=== PATIENT | female | born 1945 | race Caucasian/White ===

== ENCOUNTER → 2016-09-10 | Outpatient (CLI) | payer MEDICARE, OTHER ==
--- NOTE | 2016-09-10 21:57 | MR ---
EXAMINATION TYPE: MR lumbar spine wo con DATE OF EXAM: 09/10/2016 7:36 PM COMPARISON: MRI lumbar spine July 11, 2015. HISTORY: low back pain for 10 years per patient radiating to right leg. Lumbosacral spinal stenosis p er order. TECHNIQUE: Multiplanar, multisequence imaging of the lumbar spine is performed without IV contrast. FINDINGS: Sagittal images of the lumbar spine show vertebral body heights to remain satisfactory. Exa ggerated lumbar lordosis is again seen. There is persistent grade 1 retrolisthesis of L1 on L2 and gr anne marie 1 anterolisthesis of L4 on L5 and L5 on S1. Multilevel disc desiccation is seen. There is multile prosper fairly advanced disc space narrowing there are thoracolumbar junction with heterogeneous endplate changes, prominent increased T1 and T2 signal consistent with Modic type II degenerative change is n oted centered at T12-L1 endplate. No large posterior disc herniations are seen on sagittal images. Th e conus medullaris remains normal in position and signal ending at mid L1 vertebral body level. Moder ate multilevel spurring near thoracolumbar junction is again seen. Axial images at T12-L1 level shows mild facet arthropathy mildly effacing posterior lateral thecal sa c and mild broad disc bulge mildly effacing anterior thecal sac. Bilateral neural foramina are patent . No significant change from prior study is seen Axial images at L1-L2 level show spondylolisthesis and moderate broad disc bulge mildly effacing ante rior thecal sac. Mild facet degenerative changes are present bilaterally. There is severe bilateral n eural foraminal narrowing redemonstrated probably related to spondylolisthesis. No significant change from prior study is identified. Axial images at L2-L3 level show moderate right greater than left facet degenerative changes and liga mentum flavum hypertrophy with some effacement the posterior lateral thecal sac bilaterally. There is mild to moderate broad disc bulge mildly effacing anterior thecal sac. There is severe right and mod erate left-sided neural foraminal narrowing redemonstrated. No significant change from prior study is identified. Axial images at the L3-L4 level show moderate facet degenerative changes and ligamentum flavum hypert rophy effacing the posterior lateral thecal sac on axial image 13. There is mild to moderate broad di sc bulge mildly effacing anterior thecal sac. There is mild bilateral neural foraminal narrowing at t his level identified. No significant change from prior study is noted. Axial images at L4-L5 level show moderate to advanced facet degenerative changes bilaterally. Spondyl olisthesis is present. There is additional moderate to severe broad based posterior disc protrusion e ffacing anterior thecal sac on axial image 7 redemonstrated. There is moderate right and mild left-si ded neural foraminal narrowing seen. Possible small synovial cyst on prior study axial image 8 is not clearly seen on today's study near exiting nerve root. Axial images at the L5-S1 level show moderate to severe facet degenerative changes bilaterally. Spond ylolisthesis is present. There is broad-based central disc protrusion mildly effacing the anterior th ecal sac. There is mild bilateral neural foraminal narrowing at this level identified. IMPRESSION: Exaggerated lumbar lordosis with multilevel degenerative changes seen as detailed above, no significant change from prior MRI is identified. Most pronounced spinal canal effacement or stenos is is redemonstrated at L4-L5 level. Most pronounced neural foraminal narrowing is seen in the upper lumbar levels.
== END | disposition home or self-care (01) ==
LOC: RADMRIMAIN 18:31
DX: M99.73 Connective tissue and disc stenosis of intervertebral foramina of lumbar region (principal); M47.816 Spondylosis without myelopathy or radiculopathy, lumbar region; M47.817 Spondylosis without myelopathy or radiculopathy, lumbosacral region; M40.56 Lordosis, unspecified, lumbar region
CPT/HCPCS: 72148

== ENCOUNTER → 2016-10-06 | Outpatient (CLI) | payer MEDICARE, OTHER ==
--- NOTE | 2016-10-08 08:09 | MM ---
Reason for exam: screening (asymptomatic). Last mammogram was performed 1 year ago. History: Patient is postmenopausal. Family history of breast cancer in mother at age 70 and breast cancer in cousin at age 50. Physical Findings: A clinical breast exam by your physician is recommended on an annual basis and results should be correlated with mammographic findings. MG 3D Screening Mammo W/Cad Bilateral CC and MLO view(s) were taken. Prior study comparison: October 05, 2015, bilateral MG screening mammo w CAD. April 20, 2014, bilateral MG screening mammo w CAD. There are scattered fibroglandular densities. No significant changes when compared with prior studies. ASSESSMENT: Benign, BI-RAD 2 RECOMMENDATION: Routine screening mammogram of both breasts in 1 year.
== END ==
LOC: RADMAMWWP 14:07
PROVIDERS: ATTEND Family Medicine
DX: Z12.31 Encounter for screening mammogram for malignant neoplasm of breast (principal)
CPT/HCPCS: 77063; G0202

== ENCOUNTER → 2016-11-19 | Outpatient (CLI) | payer MEDICARE, OTHER ==
--- NOTE | 2016-11-19 08:58 | CT ---
EXAMINATION TYPE: CT brain wo con DATE OF EXAM: 11/19/2016 8:31 AM COMPARISON: NONE HISTORY: PACE, sense of falling to the Lt CT DLP: 999.8 mGycm Automated exposure control for dose reduction was used. FINDINGS: There is no acute intracranial hemorrhage, mass effect, or midline shift identified. The ventricles and sulci are within normal limits in size. Hyperostosis frontalis is seen. The globes are intact and the visualized sinuses are clear. Some patchy opacity inferior bilateral mastoid air cells is presen t on axial image 6. IMPRESSION: No acute intracranial hemorrhage, mass effect, or midline shift is seen. Perhaps mild bilateral masto iditis, clinical correlation advised.
--- NOTE | 2016-11-19 09:02 | FL ---
EXAMINATION TYPE: FL barium swallow DATE OF EXAM: 11/19/2016 8:51 AM CLINICAL HISTORY: Known hiatal hernia with dysphagia per order. Reflux-like symptoms for 20 years. TECHNIQUE: A double contrast esophagram is performed utilizing air and barium. A total of 37 second s of fluoroscopic time was utilized during procedure. COMPARISON: CT chest November 10, 2010. FINDINGS: The esophagus shows dysmotility with abnormal secondary and tertiary contractions. There is a moderate size fixed hiatal hernia redemonstrated. No obstructing mass or neoplasm is present. No s ignificant stricturing is seen. No significant gastroesophageal reflux was seen during real time perf ormance of this study. IMPRESSION: Moderate esophageal dysmotility with moderate size fixed hiatal hernia.
== END | disposition home or self-care (01) ==
LOC: RADCTMAIN 08:11
PROVIDERS: ATTEND Family Medicine
DX: K22.4 Dyskinesia of esophagus (principal); Z00.00 Encounter for general adult medical examination without abnormal findings; K44.9 Diaphragmatic hernia without obstruction or gangrene; R51 Headache; R13.12 Dysphagia, oropharyngeal phase
CPT/HCPCS: 70450; 74220

== ENCOUNTER → 2017-02-06 | Outpatient (CLI) | payer MEDICARE, OTHER ==
--- NOTE | 2017-02-06 19:55 | XR ---
EXAMINATION TYPE: XR lumbar spine 2 or 3V DATE OF EXAM: 02/06/2017 COMPARISON: NONE HISTORY: Back pain TECHNIQUE: 3 views FINDINGS: There are rods and screws fusing posteriorly the lumbar spine from L3 to S1 bilaterally. Th ere is multilevel laminectomy. There is 1 cm posterior subluxation of L1 in relation to L2. There is moderate narrowing of L1-2 disc space. I see no compression fracture. Sacroiliac joints are intact. IMPRESSION: Multilevel spondylosis. Fusion surgery. Degenerative retrolisthesis at L1-2. No acute bon y abnormality.
== END | disposition home or self-care (01) ==
LOC: RADXRMAIN 19:27
DX: M43.16 Spondylolisthesis, lumbar region (principal); M47.816 Spondylosis without myelopathy or radiculopathy, lumbar region; Z98.1 Arthrodesis status
CPT/HCPCS: 72100

== ENCOUNTER 2017-04-03 11:05 | Day surgery (SDC) | payer MEDICARE, OTHER ==
[2017-04-02 10:04] VITALS: BMI 37.6
[~2017-04-03 11:05] MED LIST: LACTATED RINGERS 1,000 ML IV SCH
[2017-04-03 11:17] VITALS: RESP 16; TEMP 99.9
[2017-04-03] MEDS ORDERED: LIDOCAINE 1% 20 ML VIAL (10MG/ML) FOR IV START INTRADERMA ONE (11:32)
[2017-04-03] MEDS ORDERED: PROPOFOL 10 MG/ML 20 ML VIAL IV ONE (12:25)
--- NOTE | 2017-04-03 12:37 | P.PCN ---
Date of Procedure: 04/03/17 Preoperative Diagnosis: Postoperative Diagnosis: Procedure(s) Performed: BRIEF HISTORY: Patient is a 71-year-old, pleasant, white female, scheduled for an upper endoscopy as a part of evaluation of long-standing history of GERD for which she is on Prilosec 20 mg daily for the last 5 years duration. Recently has been having intermittent dysphagia to solids, occasional chest pain and excessive burping. PROCEDURE PERFORMED: Esophagogastroduodenoscopy with biopsy PREOPERATIVE DIAGNOSIS: GERD. IV sedation per anesthesia. PROCEDURE: After informed consent was obtained, the patient was brought into the endoscopy unit. IV sedation was administered by Anesthesia under continuous monitoring. Initially the Olympus GIF-140 video endoscope was inserted into the mouth. Esophagus intubated without any difficulty. It was gradually advanced into the stomach and duodenum and carefully examined. The bulb and the second part of the duodenum appeared normal. The scope at this time was withdrawn to the stomach, adequately insufflated with air, and upon careful examination, mucosa of the antrum, body, had multiple gastric polyps measuring between 5 mm to 1 cm in size some of which were biopsied. The cardia and the fundus appeared normal. The scope was then withdrawn into the esophagus. Moderate size hiatal hernia noted. The diaphragmatic impression was located at 35 cm from the incisors. The GE junction was located at 30 cm from the incisors. The esophagus appeared normal. There were no erosions or ulcerations seen and the patient tolerated the procedure well. IMPRESSION: 1. Moderate size hiatal hernia. 2. Multiple gastric polyps 3. No evidence of esophagitis or Wheeler's esophagus. RECOMMENDATIONS: The findings of this examination were discussed with the patient as well as his family. She was advised to follow with the biopsy results. She will continue with Prilosec 20 mg daily and follow antireflux measures. Implants: Indications for Procedure: Operative Findings: Description of Procedure:
[2017-04-03 13:04] VITALS: BP 121/77; PULSE 84
== END 2017-04-03 13:20 | disposition home or self-care (01) ==
LOC: ORWHC2ENDO 11:05
PROVIDERS: ATTEND Internal Medicine Gastroenterology
DX: K31.7 Polyp of stomach and duodenum (principal); K21.9 Gastro-esophageal reflux disease without esophagitis; K44.9 Diaphragmatic hernia without obstruction or gangrene; M19.90 Unspecified osteoarthritis, unspecified site; E07.9 Disorder of thyroid, unspecified; Z79.899 Other long term (current) drug therapy; Z88.2 Allergy status to sulfonamides
CPT/HCPCS: 88305; 88342; 43239; J2704

== ENCOUNTER → 2017-05-12 | Outpatient (CLI) | payer MEDICARE, OTHER ==
--- NOTE | 2017-05-12 14:38 | XR ---
Lumbar spine HISTORY: Spondylolisthesis, pain 3 views of the lumbar spine correlated to prior lumbar spine 02/06/2017 Posterior lumbar fusion and laminectomy changes are stable. Alignment is unchanged. Scoliotic curvatu re again noted. Bone mineralization is reduced. Surgical clips present in the right upper quadrant. Anterolisthesis grade 1 L5-S1 and L4-5 again noted. Retrolisthesis grade 1 L2-3, L1-2. Loss of disc h eight greatest at L1-2, T12-L1 with associated vacuum phenomenon. Endplate sclerosis again noted at L 1-2. Accentuation of the lumbar lordosis is noted. Sclerosis in the posterior elements compatible wit h facet arthropathy. IMPRESSION: Stable postoperative findings. Spondylolisthesis, degenerative disc disease, facet arthro caro and osteopenia. Scoliosis.
== END ==
LOC: RADXRMAIN 14:04
DX: M43.16 Spondylolisthesis, lumbar region (principal); M51.36 Other intervertebral disc degeneration, lumbar region; M46.86 Other specified inflammatory spondylopathies, lumbar region; M41.86 Other forms of scoliosis, lumbar region; Z98.890 Other specified postprocedural states
CPT/HCPCS: 72100

== ENCOUNTER 2017-07-20 08:40 | Day surgery (SDC) | payer MEDICARE, OTHER ==
[2017-07-17 08:48] VITALS: BMI 35.2
[2017-07-20 09:38] VITALS: TEMP 97.9
[2017-07-20] MEDS ORDERED: IV FLUID CONTINUATION 1,000 ML IV ONE (10:38)
--- NOTE | 2017-07-20 10:48 | P.PCN ---
Date of Procedure: 07/20/17 Preoperative Diagnosis: Right lumbar radiculopathy Failed back surgery syndrome Postoperative Diagnosis: Same as above Procedure(s) Performed: Right L2-L3 transforaminal epidural steroid injection under fluoroscopic guidance Anesthesia: MAC (moderate conscious sedation) Surgeon: Manju Sanchez Pathology: none sent Condition: stable Disposition: PACU Description of Procedure: PROCEDURE INDICATION: The patient with low back pain and radiculopathy symptoms unresponsive to conservative treatment. PROCEDURE DESCRIPTION / TECHNIQUE: The patient was seen and identified in the preoperative area. Risks, benefits , complications, and alternatives were discussed with the patient. The patient agreed to proceed with the procedure and signed the consent. IV was started, and vital signs were stable. Patient was taken to the OR and time out was completed. The patient was placed in the prone position on procedure table and a pillow was placed under the abdomen to reduce lumbar lordosis. The lumbosacral area was prepped and draped in the usual sterile fashion. Critical pause was taken. Vital signs were closely monitored during the procedure. Conscious sedation was used during the procedure to decrease patients anxiety. He shouldn't has lumbar fusion with hardware extending fromL3 to S1, the target today was at the L2-L3 level right above the superior extension of the hardware. The vertebral body of the lumbar vertebra L2 was squared off by tilting the C-arm cephalad then the C-arm was tilted to the oblique position and the target point was at the 6 o'clock position of the pedicle of L2 then skin and deeper tissues just below were localized with 1% lidocaine. Subsequently, a 22-gauge 3.5-inch spinal needle was advanced under a tunneled view fluoroscopic guidance just underneath the chin of the Hung dog at the right L2. Under lateral fluoroscopy, the needle was then advanced to the middle of the upper one third of the foramen between( L2 and L3). After negative aspiration of CSF and blood and with no paresthesias, 1 mL of omnipaque contrast dye was injected excellent epidurogram and outlining of the L2 nerve root was identified. Subsequently, 3 mL of block solution containing 10 mg of Decadron and 2 mL of bupivacaine 0.25% was injected. Needle was removed and the same . At the end of the procedure, skin was cleansed, and bandages were applied. COMPLICATIONS: None
[2017-07-20 10:49] VITALS: PULSE 70; RESP 18
--- NOTE | 2017-07-20 10:50 | FL ---
EXAMINATION TYPE: FL guided pain mgmt statistic DATE OF EXAM: 07/20/2017 HISTORY: Flouroscopy time 26 seconds of fluoroscopy provided. IMPRESSION: 1. Fluoroscopy time.
[2017-07-20 11:05] VITALS: BP 118/72
== END 2017-07-20 11:23 | disposition home or self-care (01) ==
LOC: ORPAIN 08:40
PROVIDERS: ATTEND Anesthesiology
DX: M54.16 Radiculopathy, lumbar region (principal); M54.9 Dorsalgia, unspecified; M79.604 Pain in right leg; Z88.2 Allergy status to sulfonamides; E03.9 Hypothyroidism, unspecified
CPT/HCPCS: 64483; J2250; J1100; Q9965; J3010; 99152

== ENCOUNTER → 2017-09-28 | Outpatient (CLI) | payer MEDICARE, OTHER ==
--- NOTE | 2017-09-29 08:47 | XR ---
EXAM TYPE: LUMBAR SPINE X RAY SERIES COMPARISON: NONE HISTORY: Presurgical TECHNIQUE: 3 views are submitted. FINDINGS: Postsurgical change involving the lumbar spine are stable. There is anterolisthesis of L4 on L5 and L 5-S1. Severe degenerative disc disease L-1-L2 with significant retrolisthesis of L1 appears stable. S evere degenerative disc disease involving the lower thoracic spine. IMPRESSION: 1. Postsurgical changes stable with persistent grade 1 anterolisthesis L4 on L5 and L5 and S1 2. Severe multilevel degenerative disc disease involving the lower thoracic spine and thoracolumbar j unction endplate sclerosis and deformity involving L1 is retrospectively stable.
== END | disposition home or self-care (01) ==
LOC: RADMRIMAIN 15:47
DX: M51.35 Other intervertebral disc degeneration, thoracolumbar region (principal); M43.17 Spondylolisthesis, lumbosacral region; G95.29 Other cord compression; G95.89 Other specified diseases of spinal cord; Z98.890 Other specified postprocedural states
CPT/HCPCS: 72100

== ENCOUNTER → 2017-10-21 | Outpatient (CLI) | payer MEDICARE, OTHER ==
--- NOTE | 2017-10-21 16:17 | XR ---
Lumbar spine HISTORY: Lumbar laminectomy 3 views of the lumbar spine, comparison prior exam 09/28/2017 Interval posterior fusion at T11-L1 with associated laminectomies. Alignment is stable. Loss of disc height at multiple intervertebral levels again seen with associated vacuum phenomenon. Bone mineraliz ation is markedly reduced. Vertebral body height is stable. Multilevel spondylosis. Sclerosis present in the posterior elements. Surgical clips incidentally noted right upper quadrant. Graft material is seen in the paraspinal loca tions. IMPRESSION: Neurosurgical follow-up
--- NOTE | 2017-10-21 16:30 | XR ---
Thoracic spine HISTORY: Laminectomy 3 views of the thoracic spine correlated to lumbar spine same date. There is a kyphosis centered at T10. Posterior fusion changes noted from T11 extending distally. Mult ilevel thoracic spondylosis is present. Bone mineralization. Loss of disc height present at the inter vertebral levels associated vacuum phenomenon. There is a mild spinal curvature. Surgical clips prese nt in the right upper quadrant. IMPRESSION: Postop changes. Degenerative disc disease. Spinal curvature and kyphosis.
== END ==
LOC: RAD 15:36
DX: Z09 Encounter for follow-up examination after completed treatment for conditions other than malignant neoplasm (principal); M51.34 Other intervertebral disc degeneration, thoracic region; M40.294 Other kyphosis, thoracic region; Z98.890 Other specified postprocedural states
CPT/HCPCS: 72072; 72100

== ENCOUNTER → 2017-11-06 | Outpatient (CLI) | payer MEDICARE, OTHER ==
--- NOTE | 2017-11-06 10:36 | CT ---
EXAMINATION TYPE: CT ankle RT wo con DATE OF EXAM: 11/06/2017 COMPARISON: NONE HISTORY: 72-year-old female Foot pain. Fracture of medial cuneiform. TECHNIQUE: Contiguous axial scanning of the right foot without IV contrast. Coronal and sagittal gui nstructions performed. 3-D reconstructions generated on a dedicated independent workstation. CT DLP: 214.90 mGycm Automated exposure control for dose reduction was used. FINDINGS: Osteoporotic changes are present particularly at the first MTP joint and to a greater degree at the f irst metatarsal sesamoid joints. There is prominent tenosynovitis of fluid seen along the flexor hallucis longus along its supramalleo lar portion. Focal thickening of the inframalleolar peroneal brevis is noted, and axial image 52. Some subchondral cystic changes are present in the TMT joint articulation suggesting underlying midfo ot osteoarthrosis. There is a healed fracture involving the medial cuneiform, refer to axial image 53. Mat Inspector im age. No acute fracture seen. Mild diffuse soft tissue swelling. Some focal edema is seen along the plantar midfoot subcutaneous tissues. IMPRESSION: 1. HEALED, NONDISPLACED FRACTURE ACROSS THE MEDIAL CUNEIFORM. 2. SCATTERED MIDFOOT OSTEOARTHROSIS WELL FIRST MTP AND FIRST METATARSAL-SESAMOID JOINT OSTEOART HROSIS. 3. CORRELATE FOR FLEXOR HALLUCIS LONGUS TENOSYNOVITIS. 4. INFRAMALLEOLAR PERONEUS BREVIS TENDINOPATHY CHARACTERIZED BY THICKENING.
== END | disposition home or self-care (01) ==
LOC: RADCTMAIN 09:17
PROVIDERS: ATTEND Orthopaedic Surgery
DX: M19.071 Primary osteoarthritis, right ankle and foot (principal); M65.9 Synovitis and tenosynovitis, unspecified; Z87.81 Personal history of (healed) traumatic fracture

== ENCOUNTER → 2018-01-01 | Outpatient (CLI) | payer MEDICARE, OTHER ==
--- NOTE | 2018-01-02 08:00 | XR ---
EXAMINATION TYPE: XR lumbar spine 2 or 3V DATE OF EXAM: 01/01/2018 CLINICAL HISTORY: pain TECHNIQUE: Three views of the lumbar spine are submitted. COMPARISON: 10/21/2017 FINDINGS: Postoperative changes of fusion are again noted extending throughout the lumbar spine. Pedicular scre ws are in place. Severe multilevel degenerative disc space narrowing. Grade 1 anterolisthesis L4 and L5 measuring 9 mm. Grade 2 anterolisthesis L5 on S1 measuring 1.2 cm essentially unchanged from prior study. Retrolisthesis of L2 on L3 measuring 5 mm. IMPRESSION: Stable postoperative changes in alignment. ICD 10 NO FRACTURE, INITIAL EVALUATION
--- NOTE | 2018-01-02 13:45 | CT ---
EXAMINATION TYPE: CT lumbar spine wo con DATE OF EXAM: 01/01/2018 COMPARISON: NONE HISTORY: Lower back pain after sx CT DLP: 1044.[address] of the lumbar spine was performed. Bone and soft tissue window settings are submitted as well as coronal and sagittal reconstructions. L1-L2: Decompressive laminectomy change. Pedicular screws in place. Severe degenerative disc space na rrowing. Ventral and dorsal spondylosis. Streak artifact limits evaluation. L2-L3: Decompressive laminectomy change. Pedicular screws in place. Severe degenerative disc space na rrowing. Ventral and dorsal spondylosis. Streak artifact limits evaluation. Retrolisthesis of L1 on L2 of 7 mm. L3-L4: Decompressive laminectomy change. Pedicular screws in place. Severe degenerative disc space na rrowing. Ventral and dorsal spondylosis. Streak artifact limits evaluation. Retrolisthesis of L2 on L3 of 5 mm. L4-L5: Decompressive laminectomy change. Pedicular screws in place. Severe degenerative disc space na rrowing. Ventral and dorsal spondylosis. Streak artifact limits evaluation. Anterolisthesis L4 and L5 of 6.2 mm. L5-S1: Decompressive laminectomy change. Pedicular screws in place. Severe degenerative disc space na rrowing. Ventral and dorsal spondylosis. Streak artifact limits evaluation. Grade 2 anterolisthesis of L5 on S1 of approximately 1 cm. No paraspinal masses are identified. No compression fracture seen. IMPRESSION: 1. Severe multilevel degenerative disc disease with there are varying degrees of rajendra and retrolist hesis. Extensive laminectomy change as noted.
== END ==
LOC: RADCTMAIN 18:11
DX: M51.36 Other intervertebral disc degeneration, lumbar region (principal)
CPT/HCPCS: 72100; 72131

== ENCOUNTER → 2018-03-17 | Outpatient (CLI) | payer MEDICARE, OTHER ==
[2018-03-17 12:59] LABS: T4, Free (Free Thyroxine) 1.65 ng/dL (0.78-2.19)
== END | disposition home or self-care (01) ==
LOC: LABWHC1 11:47
PROVIDERS: ATTEND Family Medicine
DX: E03.9 Hypothyroidism, unspecified (principal)
CPT/HCPCS: 36415; 84439; 84443

== ENCOUNTER → 2018-03-17 | Outpatient (CLI) | payer MEDICARE, OTHER ==
[2018-03-17 12:19] LABS: HCT 40.4 % (34.0-46.0); HGB 13.4 gm/dL (11.4-16.0); MCH 29.8 pg (25.0-35.0); MCHC 33.2 g/dL (31.0-37.0); Mean Platelet Volume 7.4; Platelet Count 299 k/uL (150-450); RBC 4.49 m/uL (3.80-5.40); RDW 13.7 % (11.5-15.5); WBC 7.3 k/uL (3.8-10.6)
[2018-03-17 12:24] LABS: Partial Thromboplastin Time 22.8 sec (22.0-30.0); Prothrombin Time 9.8 sec (9.0-12.0)
[2018-03-17 12:44] LABS: Glucose 83 mg/dL (74-99)
[2018-03-17 12:45] LABS: ALT 32 U/L (9-52); AST 27 U/L (14-36); Albumin 4.1 g/dL (3.5-5.0); Alkaline Phosphatase 142 U/L (38-126); Anion Gap 8 mmol/L; Appearance,Urine Cloudy (Clear); Bilirubin,Urine Negative (Negative); Blood Urea Nitrogen 17 mg/dL (7-17); Blood,Urine Negative (Negative); Calcium 9.6 mg/dL (8.4-10.2); Carbon Dioxide 28 mmol/L (22-30); Chloride 103 mmol/L (98-107); Color,Urine Yellow; Glucose,Urine (UA) Negative (Negative); Ketones,Urine Negative (Negative); Leukocyte Esterase,Urine Large (Negative); Mucus,Urine Occasional /hpf; Nitrite,Urine Negative (Negative); PH, Urine 5.5 (5.0-8.0); Potassium 4.5 mmol/L (3.5-5.1); Protein,Urine Negative (Negative); RBC,Urine 2 /hpf (0-5); Sodium 139 mmol/L (137-145); Specific Gravity,Urine 1.019 (1.001-1.035); Squamous Epithelial Cell,Urine 3 /hpf (0-4); Total Bilirubin 0.4 mg/dL (0.2-1.3); Total Protein 6.9 g/dL (6.3-8.2); Urobilinogen,Urine <2.0 mg/dL (<2.0); WBC,Urine 2 /hpf (0-5)
== END | disposition home or self-care (01) ==
LOC: LABPAT 11:50
PROVIDERS: ATTEND Orthopaedic Surgery
DX: Z01.812 Encounter for preprocedural laboratory examination (principal)
CPT/HCPCS: 80053; 81001; 85027; 85610; 85730; 87070

== ENCOUNTER 2018-03-29 13:18 | Inpatient (IN) | payer MEDICARE, OTHER ==
[2018-03-24 11:55] VITALS: BMI 35.7
[~2018-03-29 13:18] MED LIST changes: +ACETAMINOPHEN TAB 500 MG TAB PO ONE; +DEXAMETHASONE SOD PHOSPHATE 10 MG/ML 1 ML VIAL IV ONE; -LACTATED RINGERS 1,000 ML IV SCH; +MIDAZOLAM 2 MG/2 ML VIAL IV PRN; +ONDANSETRON 4 MG/2 ML VIAL IVP ONE; +TRANEXAMIC ACID 1,000 MG in SODIUM CHLORIDE 0.9% 50 ML IVPB ONE; +ceFAZolin IN SWFI 2 GM/20 ML SYRINGE IVP ONE; +fentaNYL (PF) 50 MCG/ML 2 ML AMP IV PRN
[2018-03-29] MEDS ORDERED: ROPIVACAINE 246.25 MG, EPINEPHrine 0.5 MG, KETOROLAC 30 MG, cloNIDine HCL/PF 80 MCG, WA... MISCELLANE ONE ×5 (13:25)
[2018-03-29] MEDS ORDERED: LIDOCAINE 1% 20 ML VIAL (10MG/ML) FOR IV START INTRADERMA ONE (13:48)
[2018-03-29] MEDS: LACTATED RINGERS 1,000 ML IV SCH ×2 (13:48→18:05)
[2018-03-29] MEDS ORDERED: SUCCINYLCHOLINE CHLORIDE 100 MG/5 ML SYR IV ONE (14:01)
[2018-03-29] MEDS ORDERED: TRANEXAMIC ACID 1,000 MG/10 ML VIAL ONE (14:01)
[2018-03-29] MEDS ORDERED: HYDROmorphone (PF) 1 MG/ML ONE (14:01)
[2018-03-29] MEDS ORDERED: PROPOFOL 10 MG/ML 20 ML VIAL IV ONE (14:01)
[2018-03-29] MEDS ORDERED: PHENYLEPHRINE-0.9% NACL SYG 1 MG/10 ML SYRINGE ONE (14:01)
[2018-03-29] MEDS ORDERED: fentaNYL (PF) 50 MCG/ML 2 ML AMP ONE (14:01)
[2018-03-29] MEDS ORDERED: MIDAZOLAM 2 MG/2 ML VIAL ONE (14:01)
[2018-03-29] MEDS ORDERED: SODIUM CHLORIDE 0.9% 100 ML BAG ONE (14:01)
[2018-03-29] MEDS ORDERED: LACTATED RINGERS 1,000 ML IV ONE ×2 (14:52)
[2018-03-29] MEDS ORDERED: ceFAZolin 3,000 MG in SODIUM CHLORIDE 0.9% IRRIGATIO 3,000 ML IRRIGATION ONE (15:10)
--- NOTE | 2018-03-29 16:13 | P.OP ---
Date of Procedure: 03/29/18 Procedure(s) Performed: PREOPERATIVE DIAGNOSIS: Left knee severe osteoarthritis with genu varum POSTOPERATIVE DIAGNOSIS: Left knee severe osteoarthritis with genu varum; 2. Diminished bone quality/osteopenia/osteoporosis OPERATION: Left knee cemented total replacement arthroplasty. ANESTHESIA: Spinal ESTIMATED BLOOD LOSS: 100 ml. TROUBLE DISPATCHER: Jenifer Tsai PA-C (assistance with: patient positioning, retraction, exposure, hemostasis, leg positioning, implantation, irrigation, closure, dressing) COMPLICATIONS: None apparent. COMPONENTS IMPLANTED: Persona system from [employer] with tibial stem extension INDICATIONS: Mrs. Loera is a 72-year-old female with a history of left knee osteoarthritis. The patient's right knee is already replaced. The patient's left knee is end-stage, and conservative management has failed. The operation of knee replacement has been discussed at length in the office, as well as potential risks and complications. These are inclusive of, but not limited to: bleeding, infection, scarring, discomfort, blood vessel and nerve damage, need for further surgery, failure to relieve symptoms, persistence, recurrence, or worsening of problems, loosening, dislocation, wear, blood clot, pulmonary embolism, , gait dysfunction, stiffness, and other risks as discussed in the office. The patient elects to proceed and the consent form has been signed. PROCEDURE: The patient was taken to the operating room and positioned on the operating room table in the supine position. Anesthesia was initiated. Care was taken to make sure that all pressure points were adequately padded. The operative lower extremity was prepped and draped in the usual aseptic fashion using ChloraPrep. Ioban drape was used for the case and the patient received intravenous antibiotics within one hour of the incision. A pneumotourniquet and leg tejeda were used for the case. The limb was exsanguinated with an Esmarch bandage and the tourniquet was inflated to 350 mmHg. Time-out was called confirming the patient's identity, side, procedure and administration of antibiotics. The incision was then created midline directly over the knee, carried down through skin and into the subcutaneous tissues and down to fascia. Full thickness subcutaneous medial flap was developed. Medial parapatellar arthrotomy was performed and the interior of the knee was inspected. There was end-stage osteoarthritis of the knee with a mild to moderate genu varum type deformity. The fat pad was excised and proximal medial release on the tibia was completed using meticulous dissection and a curved osteotome. The anterior cruciate ligament was taken down. Note was made of significant attrition of the anterior and significant degenerative appearance of the posterior cruciate ligaments. The exposure was excellent. The knee was flexed 90 degrees and the patella was everted. A spot was chosen on the femur approximately 1 cm anterior to the posterior cruciate ligament insertion and an intramedullary hole was created within the femur. The intramedullary guide was then set to 5 degrees of valgus. The distal cutting block was attached and pinned into position. An appropriate amount of distal femoral resection was set. The oscillating saw was then used to make the distal femoral cut. This cut was confirmed to be flat with the flat end of an osteotome. The retractors were placed around the tibia and the tibial surface was addressed. The angle and depth of resection was adjusted using an extramedullary cutting guide. The guide had a built-in 3 degree posterior slope cut. Once the cutting guide was adjusted appropriately and in line with the axis of the tibia and confirmed to be in good position in relation to the second metatarsal and transmalleolar axis, the tibial cut was then created with protection of the posterior neurovascular structures and the collateral ligaments. Note was made of diminished bone quality and therefore a short tibial stem extension was planned. The tibial cut surface was removed and sized. Femoral sizing was then accomplished using anterior referencing. Care was taken to analyze the posterior condyles for signs of deficiency or severe wear, and adjustments to the guide were made, as appropriate. 3 degree external rotation pins were placed. The cutting jig for the femur was applied to these pins. The planned cuts were further analyzed prior to performing them with the oscillating saw. No femoral notching was produced. Bone fragments were removed and the cut surfaces were finished, as necessary, with a reciprocating saw. Spacer block technique was then used to confirm that the flexion and extension gaps were equal. Soft tissue releases and adjustment of the tibial and/or femoral cuts were made, as necessary, until the gaps were equal. This included release of the posterior cruciate ligament, which was tight in this patient and , if left unreleased, would have resulted in poor kinematics and possibly early loosening. The femur was then further finished for a posterior cruciate ligament substituting component. Patellar resurfacing was performed using a reamer. The size of the required patellar component was estimated and the patellar surface was then reamed down to a residual thickness which would recreate the huslia thickness with the component. The exact placement of the patellar component was adjusted for position based on preoperative x-rays and intraoperative findings. Prior to placing trial components, anesthetic solution consisting of ropivicaine with epinephrine, ketorolac, and clonidine was injected carefully and methodically in a grid pattern using aspiration technique into the soft tissue around the knee circumferentially, starting with the deeper tissues first and progressing to fascia, and then finally the skin/subcutaneous tissue. Particular care was taken when injecting the posterior capsule. The trial components were inserted. The tibial tray was allowed to self center and the patella was noted to track very well. The position of the tibial component was marked and the tibia was then finished for a stemmed tibial component. Cement was mixed on the back table and applied to the final components. Trial components were removed and the cut surfaces of the bone were pulse lavaged thoroughly and dried. Cement was then applied to the tibial surface and pressurized into the surface using finger pressurization technique. The tibial component with stem extension was then applied and excess cement was removed after it was impacted securely and noted to be flush with the cut surface. In similar fashion, the cement was applied to the cut femoral surface, pressurized in using finger pressurization and the component was impacted into place. Excess cement was removed. The polyethylene spacer was then implanted and locked into position. The patellar component was then applied in similar technique and a patellar clamp was used to hold the patella in place as the cement hardened. Once the cement had fully hardened, the knee was reinspected. Any other cement extrusion was removed and final kinematic testing showed range of motion from 0 to 130 degrees with excellent stability, both medially and laterally and appropriate alignment of the leg. Patellar tracking was excellent. The knee was then thoroughly pulse lavaged with normal saline. The tourniquet was deflated and hemostasis was obtained with electrocautery and IV tranexamic acid, 1 g given at the start of the operation and 1 g at the start of closure. Closure was with #2 Ethibond in the fascia/capsule and supplemented with #2 Quill, 2-0 Vicryl suture was used for the subcutaneous tissues and 3-0 Quill for the skin. Dermabond/Steri-Strips were then applied. A lightly compressive dressing was applied using Webril and an Long wrap. The [facility] was [facility] and taken to the recovery room in stable condition. Sponge and needle counts were correct.
[2018-03-29] MEDS ORDERED: BISACODYL 10 MG SUPP RECTAL PRN (16:30)
[2018-03-29] MEDS ORDERED: ONDANSETRON 4 MG/2 ML VIAL IVP PRN (16:30)
[2018-03-29] MEDS ORDERED: MAGNESIUM HYDROXIDE 2,400 MG/10 ML CUP PO PRN (16:30)
[2018-03-29] MEDS ORDERED: HYDROmorphone 1 MG/ML 1 ML SYRINGE IVP PRN ×3 (16:30)
[2018-03-29] MEDS ORDERED: NALOXONE 0.4 MG/ML 1 ML VIAL IV PRN (16:30)
[2018-03-29] MEDS ORDERED: NA PHOS,M-B/NA PHOS,DI-BA 133 ML ENEMA RECTAL PRN (16:30)
[2018-03-29] MEDS ORDERED: HYDROmorphone 1 MG/ML 1 ML SYRINGE IVP ONE ×2 (16:38→16:48)
--- NOTE | 2018-03-29 17:06 | XR ---
EXAMINATION TYPE: XR knee limited LT DATE OF EXAM: 03/29/2018 COMPARISON: NONE HISTORY: Postop knee surgery TECHNIQUE: 2 views FINDINGS: There is a left total knee prosthesis. Components are in anatomic position. IMPRESSION: No complicating process seen.
[2018-03-29 17:25] LABS: INR 1.1 (<1.2); Prothrombin Time 10.4 sec (9.0-12.0)
[2018-03-29] MEDS ORDERED: WARFARIN 5 MG TAB PO ONE (18:00)
[2018-03-29] MEDS: HYDROcodone/APAP 5-325MG 1 EACH TAB PO PRN ×2 (18:17→23:58)
[2018-03-29] MEDS: GABAPENTIN 100 MG CAP PO SCH (21:33)
[2018-03-29] MEDS: SENNOSIDES-DOCUSATE SODIUM 1 EACH TAB PO SCH (21:33)
[2018-03-29] MEDS ORDERED: TEMAZEPAM 15 MG CAP PO PRN (22:00)
[2018-03-29] MEDS: ceFAZolin IN SWFI 2 GM/20 ML SYRINGE IVP SCH (23:58)
[2018-03-30] MEDS: LACTATED RINGERS 1,000 ML IV SCH ×4 (04:17→22:20)
[2018-03-30] MEDS: LEVOTHYROXINE 100 MCG TAB PO SCH (04:20)
[2018-03-30] MEDS: HYDROcodone/APAP 5-325MG 1 EACH TAB PO PRN ×3 (06:02→20:23)
[2018-03-30 07:10] LABS: INR 1.2 (<1.2); Prothrombin Time 11.4 sec (9.0-12.0)
[2018-03-30 07:40] LABS: Basophils % (A) 0 %; Eosinophils % (A) 0 %; HCT 33.5 % (34.0-46.0); Lymphocytes # (A) 1.4 k/uL (1.0-4.8); Lymphocytes % (A) 14 %; MCH 28.6 pg (25.0-35.0); MCHC 30.7 g/dL (31.0-37.0); Mean Platelet Volume 6.8; Monocytes # (A) 0.7 k/uL (0-1.0); Monocytes % (A) 7 %; Neutrophils # (A) 7.8 k/uL (1.3-7.7); Neutrophils % (A) 77 %; Platelet Count 222 k/uL (150-450); RBC 3.61 m/uL (3.80-5.40); RDW 13.3 % (11.5-15.5); WBC 10.1 k/uL (3.8-10.6)
[2018-03-30 07:42] LABS: HGB 10.3 gm/dL (11.4-16.0)
[2018-03-30] MEDS: ceFAZolin IN SWFI 2 GM/20 ML SYRINGE IVP SCH (08:47)
[2018-03-30] MEDS: MELOXICAM 7.5 MG TAB PO SCH (08:47)
[2018-03-30] MEDS: GABAPENTIN 100 MG CAP PO SCH ×2 (08:48→20:22)
[2018-03-30] MEDS ORDERED: HYDROcodone/APAP 5-325MG 1 EACH TAB PO PRN (10:19)
--- NOTE | 2018-03-30 10:32 | P.DS ---
Providers Date of admission: 03/29/18 13:18 Expected date of discharge: 03/30/18 Attending physician: Ernesto Albarado Consults: 03/29/18 16:30 Consult Physician Routine Consulting Provider: Jolie Mccann Consult Reason/Comments: Medical management Do you want consulting provider notified?: Yes 03/29/18 17:32 Consult Physician Routine Consulting Provider: Ernseto Albarado Consult Reason/Comments: medical management Do you want consulting provider notified?: Yes Primary care physician: Jolie Mccann - Discharge Diagnosis(es) (1) Osteoarthritis of left knee Current Visit: Yes Status: Acute (2) Status post total left knee replacement Current Visit: Yes Status: Acute Hospital Course: This is a pleasant 72-year-old female last seen in our office with complaints of left knee pain. Patient has known history of degenerative arthritis of the left knee and presented to discuss options. After discussion and consideration , the patient elected to proceed with a left total knee arthroplasty. Patient was seen preoperatively, and medically cleared for surgery by her primary care physician. Patient was admitted to [facility] underwent left total knee arthroplasty on 03/29/[address] Albarado. The procedure was performed without complications or sequelae. The patient is seen and evaluated at bedside today. Pain is well-controlled. Patient has no new complaints today and denies any fevers, chills, nausea, vomiting, or shortness of breath. Vital signs are stable. Dressing is clean dry and intact. Incision looks fine with no erythema or active drainage. Calf is soft and nontender. Patient has full foot and ankle motion without difficulty. Patient's left lower extremity is neurovascularly intact. The patient is orthopedically stable for discharge today. Pertinent Studies: Laboratory Tests 03/30/18 03/30/18 06:34 06:34 WBC 10.1 RBC 3.61 L Hgb 10.3 L D Hct 33.5 L PT 11.4 INR 1.2 H Patient Condition at Discharge: Stable Plan - Discharge Summary Discharge Rx Participant: Yes New Discharge Prescriptions: New HYDROcodone/APAP 5-325MG [[place] 5-325] 1 - 2 each PO Q4-6H PRN #50 tab PRN Reason: Pain Sennosides-Docusate Sodium [Senokot-S] 1 tab PO BID #60 tablet Warfarin [Coumadin] 2.5 mg PO DAILY #1 tab No Action Venlafaxine HCl ER [Effexor Xr] 150 mg PO DAILY Omeprazole [PriLOSEC] 20 mg PO -[facility] Levothyroxine Sodium [Synthroid] 100 mcg PO MOTUWETHFRSA Glucosamine Sulfate 500 mg PO BID Gabapentin [Neurontin] 100 mg PO BID Naproxen [Naprosyn] 250 mg PO BID Pramipexole [Mirapex] 0.25 mg PO DAILY Levothyroxine Sodium [Synthroid] 200 mcg PO LOCO Multivit with Calcium,Iron,Min [Women's Multivitamin] 1 tab PO DAILY diphenhydrAMINE [Benadryl] 25 mg PO BID PRN PRN Reason: PRURITIS diphenhydrAMINE & Zinc Cream [Benadryl Cream] 1 applic TOPICAL BID PRN PRN Reason: PRURITIS HYDROcodone/APAP 5-325MG [[place] 5-325] 1 tab PO Q6HR PRN PRN Reason: Pain Discharge Medication List Levothyroxine Sodium [Synthroid] 100 mcg PO MOTUWETHFRSA 10/16/15 [History] Omeprazole [P[facility]LOSEC] [facility] 10/16/15 [History] Venlafaxine HCl ER [Effexor Xr] 150 mg PO DAILY 10/16/15 [History] Glucosamine Sulfate 500 mg PO BID 11/26/15 [History] Gabapentin [Neurontin] 100 mg PO BID 12/03/15 [History] Naproxen [Naprosyn] 250 mg PO BID 12/17/15 [History] Levothyroxine Sodium [Synthroid] 200 mcg PO LOCO 04/02/17 [History] Pramipexole [Mirapex] 0.25 mg PO DAILY 04/02/17 [History] HYDROcodone/APAP 5-325MG [[place] 5-325] 1 tab PO Q6HR PRN 03/24/18 [History] Multivit with Calcium,Iron,Min [Women's Multivitamin] 1 tab PO DAILY 03/24/18 [ History] diphenhydrAMINE & Zinc Cream [Benadryl Cream] 1 applic TOPICAL BID PRN 03/24/18 [History] diphenhydrAMINE [Benadryl] 25 mg PO BID PRN 03/24/18 [History] HYDROcodone/APAP 5-325MG [[place] 5-325] 1 - 2 each PO Q4-6H PRN #50 tab 03/29/18 [Rx] Sennosides-Docusate Sodium [Senokot-S] 1 tab PO BID #60 tablet 03/29/18 [Rx] Warfarin [Coumadin] 2.5 mg PO DAILY #1 tab 03/29/18 [Rx] Follow up Appointment(s)/Referral(s): Jenifer Tsai, PAC [PHYSICIAN REMOTE COMPUTER TERMINAL OPERATOR] - 04/14/18 1:45 pm Ambulatory/Diagnostic Orders: Continuous Passive Motion (CPM) Machine [DME.AMB1] Time Frame: 3 Weeks, Facility : [facility], Location: Case Management Prothrombin Time INR [LAB.AMB] Location: None Selected Activity/Diet/Wound Care/Special Instructions: Home Care: [facility] - [phone] May bear wt as tolerated with walker. May shower if no drainage from incision. CPM 5-6h daily. Please call [facility] at [phone] once home to arrange deliver of the CPM Discharge Disposition: HOME WITH HOME HEALTH SERVICES
[2018-03-30] MEDS ORDERED: HYDROmorphone 1 MG/ML 1 ML SYRINGE IVP PRN (12:22)
--- NOTE | 2018-03-30 17:27 | P.CONS ---
History of Present Illness - Reason for Consult Consult date: 03/30/18 Medical management - Chief Complaint Elective left total knee arthroplasty - History of Present Illness Patient is a 72-year-old female with a known history of hypothyroidism, GERD, anxiety and was admitted to hospital for elective left knee total arthroplasty. Patient tolerated the procedure very well. Complaining of left knee pain which is controlled with pain medications. Denied any complaints of chest pain or shortness of breath. No nausea vomiting or abdominal pain. No headache or dizziness or lightheadedness. No worsening leg swelling. Denied any cough or sputum production. Review of Systems Constitutional: Patient denies any fever or chills . No generalized weakness or weight loss. Abdomen: Patient denied nausea vomiting and diarrhea and abdominal pain. Cardiovascular: Patient denies any chest pain or short of breath no palpitations. Respiratory: patient denied any cough is from production. No shortness of breath Neurologic: Patient denied any numbness or tingling headache. Musculoskeletal: Patient denies any complaints of joint swelling or deformity. Left knee soreness. Skin: Negative Psychiatric: Negative Endocrine: No heat or cold intolerance. No recent weight gain. Genitourinary: No dysuria or hematuria. All other 14 point ROS negative except the above Past Medical History Past Medical History: GERD/Reflux, Osteoarthritis (OA), Skin Disorder, Thyroid Disorder Additional Past Medical History / Comment(s): PRURITIS, ANXIETY RELATED. DEVELOPED ILEUS AFTER BACK SURGERY. TINNITUS. RLS. History of Any Multi-Drug Resistant Organisms: MRSA Year Discovered:: 01/30/13 MDRO Source:: Back Past Surgical History: Back Surgery, Cholecystectomy, Hysterectomy, Joint Replacement, Orthopedic Surgery Additional Past Surgical History / Comment(s): [facility], Rt knee replacement X2, Torn rotator cuff (2 on right & once on left), [facility] aden, trigger finger aden, toe surgery-little toe, left heel surgery. Past Anesthesia/Blood Transfusion Reactions: No Reported Reaction Additional Past Anesthesia/Blood Transfusion Reaction / Comm: (DEVELOPED ILEUS AFTER BACK SURGERY) Smoking Status: Former smoker - Past Family History Mother Family Medical History: Cancer Additional Family Medical History / Comment(s): CA: breast, lung Father Family Medical History: AFIB Additional Family Medical History / Comment(s): parkinsons Medications and Allergies Home Medications Medication Instructions Recorded Confirmed Type Levothyroxine Sodium [Synthroid] 100 mcg PO MOTUWETHFRSA 10/16/15 03/29/18 History Omeprazole [PriLOSEC] 20 mg PO AC-BRKFST 10/16/15 03/29/18 History Venlafaxine HCl ER [Effexor XR] 150 mg PO DAILY 10/16/15 03/29/18 History Glucosamine Sulfate 500 mg PO BID 11/26/15 03/29/18 History Gabapentin [Neurontin] 100 mg PO BID 12/03/15 03/29/18 History Naproxen [Naprosyn] 250 mg PO BID 12/17/15 03/29/18 History Levothyroxine Sodium [Synthroid] 200 mcg PO LOCO 04/02/17 03/29/18 History Pramipexole [Mirapex] 0.25 mg PO DAILY 04/02/17 03/29/18 History Multivit with Calcium,Iron,Min 1 tab PO DAILY 03/24/18 03/29/18 History [Women's Multivitamin] diphenhydrAMINE & Zinc Cream 1 applic TOPICAL BID PRN 03/24/18 03/29/18 History [Benadryl Cream] diphenhydrAMINE [Benadryl] 25 mg PO BID PRN 03/24/18 03/29/18 History HYDROcodone/APAP 5-325MG [[place] 1 - 2 each PO Q4-6H PRN #50 tab 03/29/18 Rx 5-325] Sennosides-Docusate Sodium 1 tab PO BID #60 tablet 03/29/18 Rx [Senokot-S] Warfarin [Coumadin] 2.5 mg PO DAILY #1 tab 03/29/18 Rx Allergies Allergy/AdvReac Type Severity Reaction Status Date / Time sulfamethoxazole Allergy Unknown Verified 03/29/18 14:07 [From Bactrim] trimethoprim [From Bactrim] Allergy Unknown, Verified 03/29/18 14:07 NOT SURE OF ALLERGY - PER PATIENT STERI STRIPS AdvReac RED, ITCHY Uncoded 03/29/18 13:39 Physical Exam Vitals: Vital Signs Temp Pulse Resp BP Pulse Ox 03/30/18 07:32 98.4 F 78 16 96/57 93 L 03/30/18 03:45 89 16 03/30/18 00:46 98.6 F 89 16 116/67 92 L 03/30/18 00:00 16 03/29/18 20:00 91 16 03/29/18 19:30 91 116/71 03/29/18 19:15 99 120/58 03/29/18 19:00 97 116/54 03/29/18 18:45 96 117/76 03/29/18 18:30 90 118/65 03/29/18 18:15 94 134/85 03/29/18 18:00 89 125/65 03/29/18 17:45 83 118/72 03/29/18 17:30 98.1 F 86 16 128/73 03/29/18 17:00 98 16 121/58 92 L 03/29/18 16:45 95 16 123/56 93 L 03/29/18 16:31 96.8 F L 99 16 126/62 93 L 03/29/18 13:49 98.4 F 89 16 185/87 95 Intake and Output 03/29/18 03/30/18 03/30/18 22:59 06:59 14:59 Intake Total 601 480 Output Total 50 Balance 551 480 Intake: IV 301 Intake, IV Titration 300 Amount Lactated Ringers 1,000 ml 300 @ 100 mls/hr IV .Q10H MATT Rx#:[id number] Oral 480 Output: Estimated Blood Loss 50 Other: Voiding Method Bedside Commode Toilet # Voids 2 Weight 80.286 kg 80.286 kg PHYSICAL EXAMINATION: Patient is lying in the bed comfortably, no acute distress, awake alert and oriented.. HEENT: Normocephalic. Neck is supple. Pupils reactive. Nostrils clear. Oral cavity is moist. Ears reveal no drainage. Neck reveals no JVD, carotid bruits, or thyromegaly. CHEST EXAMINATION: Trachea is central. Symmetrical expansion. Bibasilar diminished air entry. Lung meehan clear to auscultation and percussion. CARDIAC: Normal S1, S2 with no gallops. No murmurs ABDOMEN: Soft. Bowel sounds normal. No organomegaly. No abdominal bruits. Extremities: Trace bilateral edema. No clubbing or cyanosis Neurologically awake, alert, oriented x3 with well-coordinated movements. No focal deficits noted Skin: No rash or skin lesions. Psychiatric: Coperative. Nonsuicidal Musculoskeletal: No joint swelling or deformity. Left knee surgical site intact and minimal swelling. Decreased range of motion.. Results CBC & Chem 7: 03/30/18 06:34 Labs: Abnormal Lab Results - Last 24 Hours (Table) 03/30/18 03/30/18 Range/Units 06:34 06:34 RBC 3.61 L (3.80-5.40) m/uL Hgb 10.3 L D (11.4-16.0) gm/dL Hct 33.5 L (34.0-46.0) % MCHC 30.7 L (31.0-37.0) g/dL Neutrophils # 7.8 H (1.3-7.7) k/uL INR 1.2 H (<1.2) Assessment and Plan Assessment: Status post left total arthroplasty on 03/30/2018 Normocytic anemia with hemoglobin level of 10.3 Hypothyroidism Osteoarthritis GERD DVT prophylaxis on warfarin Previous history of smoking Plan: Patient will be continued on levothyroxine 125 g daily as per home dose. Continued with pain management and bowel regimen and DVT prophylaxis with warfarin. Patient was encouraged with ambulation and incentive spirometry. Monitor H&H. We will continue to follow closely and further recommendations based on the clinical course. Thank you for your consult
[2018-03-30] MEDS ORDERED: WARFARIN 5 MG TAB PO ONE (18:00)
[2018-03-30] MEDS: SENNOSIDES-DOCUSATE SODIUM 1 EACH TAB PO SCH (20:22)
[2018-03-30] MEDS: hydrOXYzine PAMOATE 25 MG CAP PO PRN (20:23)
[2018-03-30] MEDS ORDERED: HYDROcodone/APAP 7.5-325MG 1 EACH TAB PO PRN ×2 (21:20→21:26)
[2018-03-30] MEDS: HYDROmorphone 1 MG/ML 1 ML SYRINGE IVP PRN (21:31)
[2018-03-31] MEDS: HYDROmorphone 1 MG/ML 1 ML SYRINGE IVP PRN (00:14)
[2018-03-31] MEDS: HYDROcodone/APAP 7.5-325MG 1 EACH TAB PO PRN ×2 (02:34→08:14)
[2018-03-31] MEDS ORDERED: HYDROmorphone 2 MG TAB PO PRN (05:01)
[2018-03-31] MEDS: LEVOTHYROXINE 100 MCG TAB PO SCH (05:22)
[2018-03-31 07:54] VITALS: RESP 17; TEMP 99
[2018-03-31 07:57] LABS: INR 1.6 (<1.2); Prothrombin Time 14.5 sec (9.0-12.0)
[2018-03-31] MEDS: hydrOXYzine PAMOATE 25 MG CAP PO PRN (08:15)
--- NOTE | 2018-03-31 08:56 | P.PN ---
Subjective Progress Note Date: 03/31/18 Principal diagnosis: Status post total left knee arthroplasty This is an addendum on Christie Loera. Her discharge was held yesterday secondary to pain management issues. Her pain is improved today. She'll be discharged to home today. I have increased her [place] to 7.5/325 mg. Objective - Vital Signs Vital signs: Vital Signs Temp 99 F 03/31/18 07:53 Pulse 84 03/31/18 07:53 Resp 17 03/31/18 07:53 BP 110/67 03/31/18 07:53 Pulse Ox 94 L 03/31/18 07:53 Intake & Output 03/30/18 03/31/18 03/31/18 18:59 06:59 18:59 Intake Total 480 480 Balance 480 480 Weight 80.286 kg 80.286 kg Intake: Oral 480 480 Other: Voiding Method Toilet Toilet # Voids 2 - Labs CBC & Chem 7: 03/30/18 06:34 Labs: Abnormal Lab Results - Last 24 Hours (Table) 03/31/18 Range/Units 06:57 PT 14.5 H (9.0-12.0) sec INR 1.6 H (<1.2)
[2018-03-31] MEDS: LACTATED RINGERS 1,000 ML IV SCH (10:01)
[2018-03-31] MEDS: GABAPENTIN 100 MG CAP PO SCH (10:02)
[2018-03-31] MEDS: MELOXICAM 7.5 MG TAB PO SCH (10:02)
[2018-03-31 13:01] VITALS: BP 133/63; PULSE 83
--- NOTE | 2018-03-31 14:29 | CDI ---
Last Revision, July 2017 Documentation Clarification Form Date: 03/31/2018 2:21:51 PM From: Merline Guevara RN, CCDS Admit Date: 03/29/2018 1:18:00 PM Patient Name: Christie Loera Visit Number: [id number] ATTENTION: The Clinical Documentation Specialists (CDI) and [facility] Coding Staff appreciate your assistance in clarifying documentation. Please respond to the clarification below the line at the bottom and electronically sign. The CDI & [facility] Coding staff will review the response and follow-up if needed. Please note: Queries are made part of the Legal Health Record. If you have any questions, please contact the author of this message via ITS. Omar Perry MD A diagnosis of anemia lacks specificity to accurately reflect your patients severity of condition and clarification is needed. History/Risk Factors: Elective l tka this admission Clinical indicators: 03/30 Medical Consult: "Normocytic Anemia" Hemoglobin: 13.4 pre-op /10.3 p-op Hematocrit: 40.4 pre-op /33.5 p-op Treatment: Lab monitoring Coumadin P-op ortho protocol In order to capture the severity of condition, please clarify the type of anemia and etiology if known: Acute blood loss anemia Acute on chronic blood loss anemia Post-operative Blood Loss Anemia (expected, unexpected, inherent to procedure) Iron deficiency anemia Nutritional anemia Anemia of chronic disease Unable to determine Other, please specify Please continue to document in your progress notes and discharge summary in order to capture severity of illness and risk of mortality. Include clinical findings that support your diagnosis. MTDD
--- NOTE | 2018-03-31 15:05 | P.PN ---
Subjective Progress Note Date: 03/31/18 Principal diagnosis: Status post left knee total arthroplasty Patient is a 72-year-old female with a known history of hypothyroidism, GERD, anxiety and was admitted to hospital for elective left knee total arthroplasty. Patient tolerated the procedure very well. Complaining of left knee pain which is controlled with pain medications. Denied any complaints of chest pain or shortness of breath. No nausea vomiting or abdominal pain. No headache or dizziness or lightheadedness. No worsening leg swelling. Denied any cough or sputum production. 03/31/2018 Patient denied any complaints of chest pain or shortness of breath. Left knee pain is much improved now. Able to participate in PT OT slowly. Otherwise no fever no chills. No cough is from production. No other acute overnight issues. All other review of systems negative except the above Current medications reviewed Objective - Vital Signs Vital signs: Vital Signs Temp 99 F 03/31/18 07:53 Pulse 83 03/31/18 13:00 Resp 17 03/31/18 07:53 BP 133/63 03/31/18 13:00 Pulse Ox 94 L 03/31/18 13:00 Intake & Output 03/30/18 03/31/18 03/31/18 18:59 06:59 18:59 Intake Total 480 480 240 Balance 480 480 240 Weight 80.286 kg 80.286 kg Intake: Oral 480 480 240 Other: Voiding Method Toilet Toilet Toilet # Voids 2 2 - Exam PHYSICAL EXAMINATION: Patient is lying in the bed comfortably, no acute distress, awake alert and oriented.. HEENT: Normocephalic. Neck is supple. Pupils reactive. Nostrils clear. Oral cavity is moist. Ears reveal no drainage. Neck reveals no JVD, carotid bruits, or thyromegaly. CHEST EXAMINATION: Trachea is central. Symmetrical expansion. Lung meehan clear to auscultation and percussion. CARDIAC: Normal S1, S2 with no gallops. No murmurs ABDOMEN: Soft. Bowel sounds normal. No organomegaly. No abdominal bruits. Extremities: Trace edema. No clubbing or cyanosis Neurologically awake, alert, oriented x3 with well-coordinated movements. No focal deficits noted Skin: No rash or skin lesions. Psychiatric: Coperative. Nonsuicidal Musculoskeletal: No joint swelling or deformity. Left knee surgical site intact.. - Labs CBC & Chem 7: 03/30/18 06:34 Labs: Abnormal Lab Results - Last 24 Hours (Table) 03/31/18 Range/Units 06:57 PT 14.5 H (9.0-12.0) sec INR 1.6 H (<1.2) Assessment and Plan Assessment: Status post left total arthroplasty on 03/30/2018 Normocytic anemia with hemoglobin level of 10.3 Possible mild acute blood loss anemia from surgery. Hemoglobin was 13.4 on Hypothyroidism Osteoarthritis GERD DVT prophylaxis on warfarin Previous history of smoking Plan: Patient will be continued on levothyroxine 125 g daily as per home dose. Continued with pain management and bowel regimen and DVT prophylaxis with warfarin. Patient was encouraged with ambulation and incentive spirometry. Monitor H&H. We will continue to follow closely and further recommendations based on the clinical course. Thank you for your consult Time with Patient: Greater than 30
[2018-03-31] MEDS ORDERED: WARFARIN 5 MG TAB PO ONE (18:00)
[2018-04-04] MEDS ORDERED: LEVOTHYROXINE 100 MCG TAB PO SCH (06:30)
== END 2018-03-31 14:36 | disposition home health service (06) | DRG 470 ==
LOC: 2ORMAIN 13:18 → 3SUR 16:23
PROVIDERS: ADMIT Orthopaedic Surgery; ATTEND Orthopaedic Surgery
PROC: 0SRD0J9 Replacement of Left Knee Joint with Synthetic Substitute, Cemented, Open Approach (ICD-10-PCS; principal; 2018-03-29 15:30)
DX: M17.12 Unilateral primary osteoarthritis, left knee (principal); D62 Acute posthemorrhagic anemia; E03.9 Hypothyroidism, unspecified; K22.4 Dyskinesia of esophagus; M21.162 Varus deformity, not elsewhere classified, left knee; K44.9 Diaphragmatic hernia without obstruction or gangrene; K21.9 Gastro-esophageal reflux disease without esophagitis; G25.81 Restless legs syndrome; F41.9 Anxiety disorder, unspecified; M81.0 Age-related osteoporosis without current pathological fracture; E66.9 Obesity, unspecified; Z68.35 Body mass index [BMI] 35.0-35.9, adult; H93.19 Tinnitus, unspecified ear; Z79.1 Long term (current) use of non-steroidal anti-inflammatories (NSAID); Z79.01 Long term (current) use of anticoagulants; Z79.51 Long term (current) use of inhaled steroids; Z79.890 Hormone replacement therapy; Z79.899 Other long term (current) drug therapy; Z86.14 Personal history of Methicillin resistant Staphylococcus aureus infection; Z90.49 Acquired absence of other specified parts of digestive tract; Z90.710 Acquired absence of both cervix and uterus; Z96.651 Presence of right artificial knee joint; Z87.01 Personal history of pneumonia (recurrent); Z87.891 Personal history of nicotine dependence; Z98.1 Arthrodesis status; Z88.2 Allergy status to sulfonamides; Z91.048 Other nonmedicinal substance allergy status; Z80.3 Family history of malignant neoplasm of breast; Z80.1 Family history of malignant neoplasm of trachea, bronchus and lung; Z80.42 Family history of malignant neoplasm of prostate; Z82.49 Family history of ischemic heart disease and other diseases of the circulatory system; Z82.0 Family history of epilepsy and other diseases of the nervous system
CPT/HCPCS: 85025; 85610; 88300

== ENCOUNTER 2018-04-01 03:03 | Emergency (ER) | payer MEDICARE, OTHER ==
[2018-04-01] MEDS ORDERED: ACETAMINOPHEN TAB 325 MG TAB PO STA (03:33)
[2018-04-01] MEDS ORDERED: MORPHINE SULFATE 4 MG/ML SYRINGE IVP STA (03:35)
[2018-04-01] MEDS ORDERED: ONDANSETRON 4 MG/2 ML VIAL IVP STA (03:35)
[2018-04-01] MEDS: SODIUM CHLORIDE 0.9% 500 ML IV SCH ×2 (04:29→05:14)
[2018-04-01 04:55] LABS: Basophils % (A) 0 %; Eosinophils # (A) 0.5 k/uL (0-0.7); Eosinophils % (A) 5 %; HGB 11.9 gm/dL (11.4-16.0); Lymphocytes # (A) 1.7 k/uL (1.0-4.8); Lymphocytes % (A) 18 %; MCH 29.4 pg (25.0-35.0); MCHC 31.3 g/dL (31.0-37.0); MCV 93.8 fL (80.0-100.0); Mean Platelet Volume 6.9; Monocytes # (A) 0.6 k/uL (0-1.0); Monocytes % (A) 6 %; Neutrophils # (A) 6.8 k/uL (1.3-7.7); Neutrophils % (A) 70 %; Platelet Count 243 k/uL (150-450); RBC 4.06 m/uL (3.80-5.40); RDW 13.5 % (11.5-15.5); WBC 9.8 k/uL (3.8-10.6)
[2018-04-01 05:02] LABS: Appearance,Urine Clear (Clear); Bilirubin,Urine Negative (Negative); Blood,Urine Negative (Negative); Color,Urine Light Yellow; Glucose,Urine (UA) Negative (Negative); Ketones,Urine Negative (Negative); Leukocyte Esterase,Urine Trace (Negative); Nitrite,Urine Negative (Negative); Protein,Urine Negative (Negative); RBC,Urine 1 /hpf (0-5); Specific Gravity,Urine 1.008 (1.001-1.035); Squamous Epithelial Cell,Urine 1 /hpf (0-4); Urobilinogen,Urine <2.0 mg/dL (<2.0); WBC,Urine 4 /hpf (0-5)
[2018-04-01 05:08] LABS: ALT 120 U/L (9-52); AST 72 U/L (14-36); Albumin 3.9 g/dL (3.5-5.0); Alkaline Phosphatase 133 U/L (38-126); Anion Gap 6 mmol/L; Blood Urea Nitrogen 8 mg/dL (7-17); Calcium 9.2 mg/dL (8.4-10.2); Carbon Dioxide 30 mmol/L (22-30); Chloride 103 mmol/L (98-107); Glucose 98 mg/dL (74-99); Potassium 4.2 mmol/L (3.5-5.1); Sodium 139 mmol/L (137-145); Total Bilirubin 0.5 mg/dL (0.2-1.3); Total Protein 6.6 g/dL (6.3-8.2)
[2018-04-01 05:09] LABS: INR 1.4 (<1.2); Prothrombin Time 12.7 sec (9.0-12.0)
--- NOTE | 2018-04-01 05:13 | XR ---
EXAM: XR Chest, 2 Views CLINICAL HISTORY: ITS.REASON XR Reason: Fever TECHNIQUE: Frontal and lateral views of the chest. COMPARISON: No relevant prior studies available. Impression: Lungs: No consolidation or mass. Pleural space: No effusion. Heart: No cardiomegaly. Mediastinum: Unremarkable. Tortuous aorta Bones/joints: No acute findings. Evidence of prior spinal fusion. Moderate acromioclavicular joint osteoarthritis bilaterally.
--- NOTE | 2018-04-01 05:17 | ED ---
General Adult HPI - General Source: patient Mode of arrival: ambulatory Limitations: no limitations <Elissa Brown - Last Filed: 04/01/18 19:08> <Adan Verduzco - Last Filed: 04/02/18 07:18> - General Chief complaint: Extremity Injury, Lower Stated complaint: Knee Pain Time Seen by Provider: 04/01/18 03:12 - History of Present Illness Initial comments: 72-year-old female patient who is status post left total knee replacement with Dr. Albarado on Thursday presents to the emergency department today with complaints of increased left knee pain. Patient states that she was discharged earlier today from this facility. Patient states that she slept all evening and then when she woke tonight she had severe left knee pain. Patient states she did take her medication and waited a couple hours with the pain was becoming uncontrollable. Patient states that the area surrounding the incision feels hot to touch. She denies any drainage from the incision site. Denies any numbness or tingling to the leg. Patient states she is taking Coumadin. She denies any cough or shortness of breath. States that she has been having difficulty making it to the bathroom in time. She denies any hematuria or dysuria. Patient denied any known fevers or chills however did have a temperature of 101 upon arrival. Patient denies any recent rash, chest pain, abdominal pain, nausea, vomiting, diarrhea, constipation, back pain, numbness, tingling, dizziness, weakness, hematuria, dysuria, urinary urgency, urinary frequency, headache, visual changes, or any other complaints. (Elissa Brown) - Related Data Home Medications Medication Instructions Recorded Confirmed Levothyroxine Sodium [Synthroid] 100 mcg PO MOTUWETHFRSA 10/16/15 04/01/18 Omeprazole [PriLOSEC] 20 mg PO AC-BRKFST 10/16/15 04/01/18 Venlafaxine HCl ER [Effexor XR] 150 mg PO DAILY 10/16/15 04/01/18 Glucosamine Sulfate 500 mg PO BID 11/26/15 04/01/18 Gabapentin [Neurontin] 100 mg PO BID 12/03/15 04/01/18 Naproxen [Naprosyn] 250 mg PO BID 12/17/15 04/01/18 Levothyroxine Sodium [Synthroid] 200 mcg PO LOCO 04/02/17 04/01/18 Pramipexole [Mirapex] 0.25 mg PO DAILY 04/02/17 04/01/18 Multivit with Calcium,Iron,Min 1 tab PO DAILY 03/24/18 04/01/18 [Women's Multivitamin] diphenhydrAMINE & Zinc Cream 1 applic TOPICAL BID PRN 03/24/18 04/01/18 [Benadryl Cream] diphenhydrAMINE [Benadryl] 25 mg PO BID PRN 03/24/18 04/01/18 Previous Rx's Medication Instructions Recorded Sennosides-Docusate Sodium 1 tab PO BID #60 tablet 03/29/18 [Senokot-S] Warfarin [Coumadin] 2.5 mg PO DAILY #1 tab 03/29/18 HYDROcodone/APAP 7.5-325MG [[place] 1 - 2 tab PO Q4-6H PRN #84 tab 03/31/18 7.5-325] HYDROcodone/APAP 10-325MG [[place] 1 tab PO Q6HR PRN 3 Days #12 tab 04/01/18 10-325] traMADol HCl [Ultram] 50 mg PO Q6H PRN #12 tab 04/01/18 Allergies Allergy/AdvReac Type Severity Reaction Status Date / Time sulfamethoxazole Allergy Unknown Verified 04/01/18 03:12 [From Bactrim] trimethoprim [From Bactrim] Allergy Unknown, Verified 04/01/18 03:12 NOT SURE OF ALLERGY - PER PATIENT STERI STRIPS AdvReac RED, ITCHY Uncoded 04/01/18 03:12 Review of Systems ROS Other: All systems not noted in ROS Statement are negative. <Elissa Brown - Last Filed: 04/01/18 19:08> ROS Other: All systems not noted in ROS Statement are negative. <Adan Verduzco - Last Filed: 04/02/18 07:18> ROS Statement: Those systems with pertinent positive or pertinent negative responses have been documented in the HPI. Past Medical History Past Medical History: GERD/Reflux, Osteoarthritis (OA), Skin Disorder, Thyroid Disorder Additional Past Medical History / Comment(s): PRURITIS, ANXIETY RELATED. DEVELOPED ILEUS AFTER BACK SURGERY. TINNITUS. RLS. History of Any Multi-Drug Resistant Organisms: MRSA Date of last positivie culture/infection: 01/30/13 MDRO Source:: Back Past Surgical History: Back Surgery, Cholecystectomy, Hysterectomy, Joint Replacement, Orthopedic Surgery Additional Past Surgical History / Comment(s): [facility], Rt knee replacement X2, Torn rotator cuff (2 on right & once on left), [facility] aden, trigger finger aden, toe surgery-little toe, left heel surgery. Past Anesthesia/Blood Transfusion Reactions: No Reported Reaction Additional Past Anesthesia/Blood Transfusion Reaction / Comment(s): (DEVELOPED ILEUS AFTER BACK SURGERY) Past Psychological History: Anxiety Smoking Status: Former smoker Past Alcohol Use History: None Reported Past Drug Use History: None Reported - Past Family History Mother Family Medical History: Cancer Additional Family Medical History / Comment(s): CA: breast, lung Father Family Medical History: AFIB Additional Family Medical History / Comment(s): parkinsons <Elissa Brown - Last Filed: 04/01/18 19:08> General Exam Limitations: no limitations General appearance: alert, in no apparent distress, other (This is a well- developed, well-nourished adult female patient in no acute distress. Vital signs upon presentation are temperature 101.0F, pulse 84, respirations 20, blood pressure 139/63, pulse ox 97% on room air.) Eye exam: Present: normal appearance, PERRL, EOMI. Absent: scleral icterus, conjunctival injection, periorbital swelling ENT exam: Present: normal exam, normal oropharynx Respiratory exam: Present: normal lung sounds bilaterally. Absent: respiratory distress, wheezes, rales, rhonchi, stridor Cardiovascular Exam: Present: regular rate, normal rhythm, normal heart sounds. Absent: systolic murmur, diastolic murmur, rubs, gallop, clicks GI/Abdominal exam: Present: soft, normal bowel sounds. Absent: distended, tenderness, guarding, rebound, rigid Extremities exam: Present: full ROM, normal capillary refill, other (Patient has vertical midline incision over the left anterior knee. Incision is well approximated. There is surrounding erythema and warmth. No drainage is noted from the incision site. Remainder of skin is pink, warm, and dry. Cap refills less than 3 seconds. Pedal pulses are 2+ and equal bilaterally.). Absent: normal inspection, tenderness, pedal edema, joint swelling, calf tenderness Neurological exam: Present: alert, oriented X3, CN II-XII intact Psychiatric exam: Present: normal affect, normal mood Skin exam: Present: warm, dry, intact, normal color. Absent: rash <Elissa Brown - Last Filed: 04/01/18 19:08> Vital Signs 04/01/18 04/01/18 04/01/18 03:09 04:41 05:22 Temperature 101 F H 100.4 F H Pulse Rate 84 84 Respiratory 20 18 Rate Blood Pressure 139/63 149/66 O2 Sat by Pulse 97 97 Oximetry 04/01/18 04/01/18 04/01/18 06:39 07:11 08:26 Temperature 98.2 F 97.9 F Pulse Rate 84 81 88 Respiratory 18 18 16 Rate Blood Pressure 116/55 137/56 128/60 O2 Sat by Pulse 95 92 L 94 L Oximetry EKG Findings - EKG Comments: EKG Findings:: EKG obtained at 04 48 shows normal sinus rhythm with ventricular rate of 84, P return to 142, QRS duration 76, QT 386, QTc 456. No evidence of ST elevation or depression per <Elissa Brown - Last Filed: 04/01/18 19:08> Medical Decision Making - Lab Data Result diagrams: 04/01/18 04:25 04/01/18 04:25 <Elissa Brown - Last Filed: 04/01/18 19:08> - Lab Data Result diagrams: 04/01/18 04:25 04/01/18 04:25 <Adan Verduzco - Last Filed: 04/02/18 07:18> - Medical Decision Making 72-year-old female patient presents emergency department today for evaluation of increased left knee pain. Patient is status post left total knee arthroplasty on Thursday with Dr. Albarado. Upon arrival patient did have temperature of 101.0F. Patient was not tachycardic and her blood pressure is stable. Labs reviewed and are unremarkable. White blood cell count is normal. Patient did have minimal surrounding erythema to the left knee incision however no evidence of drainage. Patient was given IV morphine here in the department, this did improve her symptoms, she is reporting a pain level of 0/ 10. My attending Dr. Verduzco did speak to Dr. Albarado who requested ultrasound of the leg to rule out DVT. Ultrasound report reviewed and was negative for any evidence of DVT. [place] dosage was increased, tramadol added to her regimen per Dr. Albarado. She is instructed to follow up with Dr. Albarado in the office. (Elissa Brown) I saw this patient in conjunction with the physician obstetric assistant. I performed independent history and physical exam. Agree with case management. We did provide additional analgesia for the patient use and she is going to follow-up with Dr. Albarado, regarding the fever as there is no definite indication of infection at this point. (dAan Verduzco) - Lab Data Lab Results 04/01/18 04/01/18 04/01/18 Range/Units 04:25 04:25 04:25 WBC 9.8 (3.8-10.6) k/uL RBC 4.06 (3.80-5.40) m/uL Hgb 11.9 (11.4-16.0) gm/dL Hct 38.0 (34.0-46.0) % MCV 93.8 (80.0-100.0) fL MCH 29.4 (25.0-35.0) pg MCHC 31.3 (31.0-37.0) g/dL RDW 13.5 (11.5-15.5) % Plt Count 243 (150-450) k/uL Neutrophils % 70 % Lymphocytes % 18 % Monocytes % 6 % Eosinophils % 5 % Basophils % 0 % Neutrophils # 6.8 (1.3-7.7) k/uL Lymphocytes # 1.7 (1.0-4.8) k/uL Monocytes # 0.6 (0-1.0) k/uL Eosinophils # 0.5 (0-0.7) k/uL Basophils # 0.0 (0-0.2) k/uL PT (9.0-12.0) sec INR (<1.2) APTT (22.0-30.0) sec Sodium 139 (137-145) mmol/L Potassium 4.2 (3.5-5.1) mmol/L Chloride 103 (98-107) mmol/L Carbon Dioxide 30 (22-30) mmol/L Anion Gap 6 mmol/L BUN 8 (7-17) mg/dL Creatinine 0.50 L (0.52-1.04) mg/dL Est GFR (CKD-EPI)AfAm >90 (>60 ml/min/1.73 sqM) Est GFR (CKD-EPI)NonAf >90 (>60 ml/min/1.73 sqM) Glucose 98 (74-99) mg/dL Plasma Lactic Acid [place] 1.5 (0.7-2.0) mmol/L Calcium 9.2 (8.4-10.2) mg/dL Total Bilirubin 0.5 (0.2-1.3) mg/dL AST 72 H (14-36) U/L ALT 120 H (9-52) U/L Alkaline Phosphatase 133 H (38-126) U/L Total Protein 6.6 (6.3-8.2) g/dL Albumin 3.9 (3.5-5.0) g/dL Urine Color Urine Appearance (Clear) Urine pH (5.0-8.0) Ur Specific [place] (1.001-1.035) Urine Protein (Negative) Urine Glucose (UA) (Negative) Urine Ketones (Negative) Urine Blood (Negative) Urine Nitrite (Negative) Urine Bilirubin (Negative) Urine Urobilinogen (<2.0) mg/dL Ur Leukocyte Esterase (Negative) Urine RBC (0-5) /hpf Urine WBC (0-5) /hpf Ur Squamous Epith Cells (0-4) /hpf 04/01/18 04/01/18 Range/Units 04:25 04:25 WBC (3.8-10.6) k/uL RBC (3.80-5.40) m/uL Hgb (11.4-16.0) gm/dL Hct (34.0-46.0) % MCV (80.0-100.0) fL MCH (25.0-35.0) pg MCHC (31.0-37.0) g/dL RDW (11.5-15.5) % Plt Count (150-450) k/uL Neutrophils % % Lymphocytes % % Monocytes % % Eosinophils % % Basophils % % Neutrophils # (1.3-7.7) k/uL Lymphocytes # (1.0-4.8) k/uL Monocytes # (0-1.0) k/uL Eosinophils # (0-0.7) k/uL Basophils # (0-0.2) k/uL PT 12.7 H (9.0-12.0) sec INR 1.4 H (<1.2) APTT 25.0 (22.0-30.0) sec Sodium (137-145) mmol/L Potassium (3.5-5.1) mmol/L Chloride (98-107) mmol/L Carbon Dioxide (22-30) mmol/L Anion Gap mmol/L BUN (7-17) mg/dL Creatinine (0.52-1.04) mg/dL Est GFR (CKD-EPI)AfAm (>60 ml/min/1.73 sqM) Est GFR (CKD-EPI)NonAf (>60 ml/min/1.73 sqM) Glucose (74-99) mg/dL Plasma Lactic Acid [place] (0.7-2.0) mmol/L Calcium (8.4-10.2) mg/dL Total Bilirubin (0.2-1.3) mg/dL AST (14-36) U/L ALT (9-52) U/L Alkaline Phosphatase (38-126) U/L Total Protein (6.3-8.2) g/dL Albumin (3.5-5.0) g/dL Urine Color Light Yellow Urine Appearance Clear (Clear) Urine pH 8.0 (5.0-8.0) Ur Specific [place] 1.008 (1.001-1.035) Urine Protein Negative (Negative) Urine Glucose (UA) Negative (Negative) Urine Ketones Negative (Negative) Urine Blood Negative (Negative) Urine Nitrite Negative (Negative) Urine Bilirubin Negative (Negative) Urine Urobilinogen <2.0 (<2.0) mg/dL Ur Leukocyte Esterase Trace H (Negative) Urine RBC 1 (0-5) /hpf Urine WBC 4 (0-5) /hpf Ur Squamous Epith Cells 1 (0-4) /hpf Disposition <Elissa Brown - Last Filed: 04/01/18 19:08> Is patient prescribed a controlled substance at d/c from ED?: Yes If prescribed controlled substance>3 days was MAPS reviewed?: Prescribed <3 Days <Adan Verduzco - Last Filed: 04/02/18 07:18> Clinical Impression: Knee pain Disposition: HOME SELF-CARE Condition: Good Instructions: Knee Pain (ED) Prescriptions: HYDROcodone/APAP 10-325MG [[place] 10-325] 1 tab PO Q6HR PRN 3 Days #12 tab PRN Reason: Pain traMADol HCl [Ultram] 50 mg PO Q6H PRN #12 tab PRN Reason: Pain Referrals: Jolie Mccann MD [Primary Care Provider] - 1-2 days Ernesto Albarado MD [STAFF PHYSICIAN] - 1-2 days
--- NOTE | 2018-04-01 07:47 | US ---
EXAMINATION TYPE: US venous doppler duplex LE LT DATE OF EXAM: 04/01/2018 6:46 AM COMPARISON: NONE CLINICAL HISTORY: Pain, r/o DVT. SIDE PERFORMED: Left TECHNIQUE: The lower extremity deep venous system is examined utilizing real time linear array sonog tabby with graded compression, doppler sonography and color-flow sonography. VESSELS IMAGED: External Iliac Vein (EIV) Common Femoral Vein Deep Femoral Vein Greater Saphenous Vein * Femoral Vein Popliteal Vein Small Saphenous Vein * Proximal Calf Veins (* superficial vessels) There is normal flow, compressibility, vascular waveforms. Left Leg: Negative for DVT IMPRESSION: No evidence for DVT at this time.
[2018-04-01 08:27] VITALS: BP 128/60; PULSE 88; RESP 16; TEMP 97.9
== END 2018-04-01 08:37 | disposition home or self-care (01) ==
LOC: EC 03:03
DX: M25.562 Pain in left knee (principal); R50.9 Fever, unspecified; K21.9 Gastro-esophageal reflux disease without esophagitis; E07.9 Disorder of thyroid, unspecified; M19.90 Unspecified osteoarthritis, unspecified site; F41.9 Anxiety disorder, unspecified; Z87.891 Personal history of nicotine dependence; Z79.1 Long term (current) use of non-steroidal anti-inflammatories (NSAID); Z79.899 Other long term (current) drug therapy; Z88.2 Allergy status to sulfonamides; Z91.048 Other nonmedicinal substance allergy status; Z86.14 Personal history of Methicillin resistant Staphylococcus aureus infection; Z96.653 Presence of artificial knee joint, bilateral
CPT/HCPCS: 36415; 93005; 80053; 83605; 85025; 85610; 85730; 81001; 87040; 87086; 71046; 93971; 99284; 96374; 96375; 96361; J2270; J2405

== ENCOUNTER → 2018-06-08 | Outpatient (CLI) | payer MEDICARE, OTHER ==
--- NOTE | 2018-06-09 11:46 | MM ---
Reason for exam: screening (asymptomatic). Last mammogram was performed 1 year and 8 months ago. History: Patient is postmenopausal. Family history of breast cancer in mother at age 70 and breast cancer in cousin at age 50. Physical Findings: A clinical breast exam by your physician is recommended on an annual basis and results should be correlated with mammographic findings. MG 3D Screening Mammo W/Cad Bilateral CC and MLO view(s) were taken. Prior study comparison: October 06, 2016, bilateral MG 3d screening mammo w/cad. October 05, 2015, bilateral MG screening mammo w CAD. The breast tissue is almost entirely fat. There is no discrete abnormality. No significant changes when compared with prior studies. ASSESSMENT: Negative, BI-RAD 1 RECOMMENDATION: Routine screening mammogram of both breasts in 1 year.
== END | disposition home or self-care (01) ==
LOC: RADMAMWWP 15:19
PROVIDERS: ATTEND Family Medicine
DX: Z12.31 Encounter for screening mammogram for malignant neoplasm of breast (principal); Z78.0 Asymptomatic menopausal state
CPT/HCPCS: 77063; 77067

== ENCOUNTER → 2018-06-29 | Outpatient (CLI) | payer MEDICARE, OTHER ==
--- NOTE | 2018-06-30 07:10 | US ---
EXAMINATION TYPE: US venous doppler duplex LE LT DATE OF EXAM: 06/29/2018 2:02 PM COMPARISON: NONE CLINICAL HISTORY: S80.12XA Contusion of left lower leg. Bruise left calf SIDE PERFORMED: Left TECHNIQUE: The lower extremity deep venous system is examined utilizing real time linear array sonog tabby with graded compression, doppler sonography and color-flow sonography. VESSELS IMAGED: External Iliac Vein (EIV) Common Femoral Vein Deep Femoral Vein Greater Saphenous Vein * Femoral Vein Popliteal Vein Small Saphenous Vein * Proximal Calf Veins (* superficial vessels) Left Leg: Negative for DVT, no abnormality visualized at area of bruise IMPRESSION: No evidence of DVT at this time.
== END ==
LOC: RADUSWWP 13:30
PROVIDERS: ATTEND Family Medicine
DX: S80.12XA Contusion of left lower leg, initial encounter (principal); X58.XXXA Exposure to other specified factors, initial encounter

== ENCOUNTER → 2018-11-18 | Outpatient (CLI) | payer MEDICARE, OTHER ==
[2018-11-18 19:35] LABS: T4, Free (Free Thyroxine) 1.3 ng/dL (0.80-1.80)
== END ==
LOC: LABWHC1 11:21
PROVIDERS: ATTEND Psychiatry & Neurology Neurology
DX: M62.81 Muscle weakness (generalized) (principal)
CPT/HCPCS: 36415; 82550; 83519; 84439; 84443; 86255

== ENCOUNTER → 2018-12-13 | Outpatient (CLI) | payer MEDICARE, OTHER ==
--- NOTE | 2018-12-13 16:47 | MR ---
EXAMINATION TYPE: MR brain wo/w con DATE OF EXAM: 12/13/2018 COMPARISON: CT brain November 19, 2016 HISTORY: Abnormal EEG / persistent right frontal slow-growing catherine plasm per order. Memory difficulties, ringing in ears, weakness in legs, and imbalance all per patien t. TECHNIQUE: Multiplanar, multisequence images of the brain and brainstem is performed without and with IV contras t, utilizing 8.5 mL intravenous Gadavist . FINDINGS: Diffusion weighted images demonstrate no evidence of a recent infarct or other diffusion ab normality. There is no worrisome extra-axial fluid collection. There is mild ventricular and sulcal prominence. There are scattered foci of T2 hyperintensity seen throughout the white matter bilaterall y. Approximately 20-25 small scattered lesions are seen. Lesions are nonspecific in appearance and di stribution. Midline structures demonstrate normal morphology. The craniocervical junction appears within normal limits. Post contrast images demonstrate no abnormal enhancement. The dural venous sinuses appear pa tent. The visualized sinuses are clear and the globes are intact. Some patchy increased fluid signal right greater than left bilateral mastoid air cells remains present. IMPRESSION: 1. There is mild diffuse cerebral atrophy and mild to moderate chronic small vessel ischemic change. No suspicious enhancing masses are present. 2. Possible bilateral mastoiditis, correlate clinically.
== END | disposition home or self-care (01) ==
LOC: RADMRIMAIN 15:38
PROVIDERS: ATTEND Psychiatry & Neurology Neurology
DX: C71.1 Malignant neoplasm of frontal lobe (principal); G31.9 Degenerative disease of nervous system, unspecified; I67.82 Cerebral ischemia
CPT/HCPCS: 70553; A9585

== ENCOUNTER → 2018-12-28 | Outpatient (CLI) | payer MEDICARE, OTHER ==
--- NOTE | 2018-12-28 22:38 | MR ---
MRI CERVICAL SPINE: CLINICAL HISTORY: Cervicalgia and chronic neck pain per order. Pain for 20 years per patient. TECHNIQUE: Multiplanar, multisequence imaging of the cervical spine is performed without IV contrast. COMPARISON: None. FINDINGS: Coronal images show dextroconvex scoliotic curvature centered in the upper thoracic spine. Sagittal images show grade 1 retrolisthesis of C5 on C6. Sagittal images of the cervical spine show t he craniocervical junction to appear within normal limits. The cervical and upper thoracic spinal co rd is normal in course, caliber, and signal. The vertebral body height are normal. Moderate disc spa ce narrowing C5-C6 and C6-C7 levels with anterior spurring is present. There is additional moderate d isc space narrowing at T3-T4 level with mild anterior spurring. The bone marrow signal intensity is o verall heterogeneous. Axial images at C2-C3 level show uncovertebral facet degenerative changes causing mild bilateral neur al foraminal narrowing. Axial images at C3-C4 level showed broad based posterior disc protrusion effacing anterior thecal sac up to ventral surface of spinal cord and causing mild to moderate bilateral neural foraminal narrowi ng as are some uncovertebral facet degenerative change also present bilaterally. Axial images at C4-C5 level show spondylolisthesis and broad-based right paracentral disc protrusion effacing anterior thecal sac of the ventral surface of the spinal cord with mild to moderate bilatera l neural foraminal narrowing. Axial images at C5-C6 level showed broad based central disc protrusion effacing anterior thecal sac o f the ventral surface of spinal cord right-sided uncovertebral facet degenerative changes causing mod erate right and mild left-sided neural foraminal narrowing. Axial images at C6-C7 levels with broad-based left paracentral disc protrusion effacing the anterior thecal sac and causing mild to moderate left greater than right bilateral neural foraminal narrowing. Axial images at C7-T1 level shows central disc protrusion effacing anterior thecal sac and causing mo derate to severe right and mild to moderate left-sided neural foraminal narrowing. IMPRESSION: Multilevel spondylolisthesis and degenerative changes as detailed above.
== END | disposition home or self-care (01) ==
LOC: RADMRIMAIN 14:25
PROVIDERS: ATTEND Psychiatry & Neurology Neurology
DX: M48.02 Spinal stenosis, cervical region (principal); M43.12 Spondylolisthesis, cervical region; M50.21 Other cervical disc displacement, high cervical region; M47.812 Spondylosis without myelopathy or radiculopathy, cervical region
CPT/HCPCS: 72141

== ENCOUNTER → 2019-08-18 | Outpatient (CLI) | payer MEDICARE, OTHER ==
--- NOTE | 2019-08-18 10:52 | MM ---
Reason for exam: additional evaluation requested from prior study. Last mammogram was performed 1 year and 2 months ago. History: Patient is postmenopausal. Family history of breast cancer in mother at age 70 and breast cancer in cousin at age 50. Physical Findings: Nurse did not find any significant physical abnormalities on exam. MG 3D Diag Mammo W/Cad DELPHINE Bilateral CC and MLO view(s) were taken. Prior study comparison: June 08, 2018, bilateral MG 3d screening mammo w/cad. October 06, 2016, bilateral MG 3d screening mammo w/cad. There are scattered fibroglandular densities. Benign appearing bilateral calcifications. No suspicious abnormality. No significant new findings when compared with previous films. These results were verbally communicated with the patient and result sheet given to the patient on 08/18/19. ASSESSMENT: Benign, BI-RAD 2 RECOMMENDATION: Routine screening mammogram of both breasts in 1 year.
--- NOTE | 2019-08-18 11:00 | USB ---
Reason for exam: clinical finding. History: Patient is postmenopausal. Family history of breast cancer in mother at age 70 and breast cancer in cousin at age 50. Indicated problem(s): palpable abnormality in the left breast. US Breast Limited LT Left limited breast ultrasound including focal area of concern, retroareolar and axilla demonstrates no cystic or solid lesion seen. These results were verbally communicated with the patient and result sheet given to the patient on 08/18/19. ASSESSMENT: Negative, BI-RAD 1 RECOMMENDATION: Routine screening mammogram of both breasts in 1 year. Manage patient on a clinical basis.
== END | disposition home or self-care (01) ==
LOC: RADMAMWWP 09:01
PROVIDERS: ATTEND Family Medicine
DX: N63.23 Unspecified lump in the left breast, lower outer quadrant (principal)
CPT/HCPCS: 77066; 76642; G0279; 77062

== ENCOUNTER → 2020-02-27 | Outpatient (CLI) | payer MEDICARE, OTHER ==
--- NOTE | 2020-02-27 14:47 | CT ---
EXAMINATION TYPE: CT shoulder RT wo con DATE OF EXAM: 02/27/2020 COMPARISON: None HISTORY: Right shoulder pain. Multiple surgeries. CT DLP: 431.7 mGycm Automated exposure control for dose reduction was used. FINDINGS: Postsurgical changes suggestive of rotator cuff repair surgery. There is complete loss of joint space of the glenohumeral joint with hypertrophic spurring. There lik evin are due to degenerative labral tears and loss of articular cartilage. No acute fracture or dislocation. Arthropathy of the AC joint noted. Rib cage is intact. There are several subpleural nodules some of which are calcified within the right lung.. Multilevel d egenerative change of the cervical spine noted. IMPRESSION: 1. Severe glenohumeral joint arthropathy with complete loss of joint space but no evidence of acute f racture or erosive changes. 2. Postsurgical rotator cuff surgery. 3. Subpleural nodules some of which are calcified suggestive of granuloma. Others are too small to ch aracterize measuring less than 5 mm could be followed on short-term follow-up CT chest as clinically warranted. Findings are likely benign.
== END | disposition home or self-care (01) ==
LOC: RADCTMAIN 14:03
PROVIDERS: ATTEND Specialist
DX: M19.011 Primary osteoarthritis, right shoulder (principal); Z98.890 Other specified postprocedural states

== ENCOUNTER → 2020-08-20 | Outpatient (CLI) | payer MEDICARE ==
--- NOTE | 2020-08-20 17:40 | BD ---
EXAMINATION TYPE: Axial Bone Density DATE OF EXAM: 08/20/2020 COMPARISON: 06/16/2018 CLINICAL HISTORY: Postmenopausal screening Height: 4 FT 9 3/4 IN Weight: 186 FRAX RISK QUESTIONS: Alcohol (3 or more units per day): NO Family History (Parent hip fracture): NO Glucocorticoids (More than 3mos): NO (Ex: prednisone, prednisolone, methylprednisolone, dexamethasone, and hydrocortisone). History of Fracture in Adulthood: YES Secondary Osteoporosis: 1. Type 1 Diabetes: NO 2. Hyperthyroidism: NO 3. Menopause before 45: NO 4. Malnutrition: NO 5. Chronic liver disease: NO Rheumatoid Arthritis: NO Current Tobacco Use: NO RISK FACTORS HISTORY OF: Surgery to Spine/Hip(right/left)/Wrist (right/left): LUMBAR AND THORACIC SURG When: 2018 AND 2016 Family History of Osteoporosis: NO Active: YES Diet low in dairy products/other sources of calcium: NO Postmenopausal woman: UNSURE AGE OF MENOPAUSE Take estrogen and/or progesterone medications: NONE Lost more than 2 inches in height since high school: YES MEDICATIONS: Thyroid Medications: YES Which medication: SYNTHROID How Long: OVER 20 YEARS Additional Medications: SYNTHROID, GABAPENTIN, METOPROLOL, BLADDER MEDS, PRILOSEC, CYMBALTA, RESTLES S LEG MEDS, ULTRAM NEEDED Additional History: DELPHINE CARPAL TUNNEL SURG EXAM MEASUREMENTS: Bone mineral density about the R hip (g/cm2): 0.867 Bone mineral density about the L hip (g/cm2): 0.875 T Score values are as follows: -----R Neck: -1.2 -----L Neck: -1.2 -----R Total: -0.8 -----L Total: -1.0 Bone mineral density has: DECREASED -1.2 % since study of: 2017 Bone mineral density about the L Wrist (g/cm2): 0.525 T Score values are as follows: -----Dist. R+U: -1.6 -----Prox. R+U: -2.3 -----Radius total: -2.5 Bone mineral density has: DECREASED -1.6 % since study of: 2017 IMPRESSION: Osteopenia (T Score between -2.5 and -1). There is slightly increased risk of fracture and the patient may be considered for treatment. Re-Screen 2-5 years. NOTE: T-SCORE=SD OF THE YOUNG ADULT MEAN.
--- NOTE | 2020-08-21 11:19 | MM ---
Reason for exam: screening (asymptomatic). Last mammogram was performed 1 year ago. History: Patient is postmenopausal. Family history of breast cancer in mother at age 70 and breast cancer in cousin at age 50. Physical Findings: A clinical breast exam by your physician is recommended on an annual basis and results should be correlated with mammographic findings. MG 3D Screening Mammo W/Cad Bilateral CC and MLO view(s) were taken. Prior study comparison: August 18, 2019, bilateral MG 3d diag mammo w/cad DELPHINE. June 08, 2018, bilateral MG 3d screening mammo w/cad. October 06, 2016, bilateral MG 3d screening mammo w/cad. The breast tissue is almost entirely fat. No significant changes when compared with prior studies. ASSESSMENT: Benign, BI-RAD 2 RECOMMENDATION: Routine screening mammogram of both breasts in 1 year.
== END | disposition home or self-care (01) ==
LOC: RADMAMWWP 13:53
PROVIDERS: ATTEND Family Medicine
DX: Z12.31 Encounter for screening mammogram for malignant neoplasm of breast (principal); Z13.820 Encounter for screening for osteoporosis; M85.80 Other specified disorders of bone density and structure, unspecified site; M81.0 Age-related osteoporosis without current pathological fracture
CPT/HCPCS: 77063; 77067; 77080

== ENCOUNTER → 2021-01-10 | Outpatient (CLI) | payer MEDICARE ==
--- NOTE | 2021-01-10 11:49 | FL ---
EXAMINATION TYPE: FL barium enema DATE OF EXAM: 01/10/2021 COMPARISON: NONE HISTORY: Failed colonoscopy TECHNIQUE: A double contrast barium enema study is attempted. A total minute 10 seconds of fluorosco pic time utilized during procedure. 15 spot images of the appendix. FINDINGS: Office Nurse Practitioner view of the abdomen shows overall non-obstructive bowel gas pattern. Extensive surgi brittny change from T12 through S1 levels. Cholecystectomy clips. Enema study is attempted. There is slow filling through the sigmoid colon. Balloon and enema are expe lled by the patient. The balloon was reinserted. Upon continuing study patient is into much pain to c omplete exam. Exam was terminated prematurely. A few spot images show redundant sigmoid colon with di verticulosis and evidence of prior inflammation or scarring. IMPRESSION: Failed enema as detailed above.
== END | disposition home or self-care (01) ==
LOC: RADFLMAIN 10:18
PROVIDERS: ATTEND Surgery
DX: Z53.9 Procedure and treatment not carried out, unspecified reason (principal)
CPT/HCPCS: 74270

== ENCOUNTER → 2021-02-08 | Outpatient (CLI) | payer MEDICARE | END | disposition home or self-care (01) ==

== ENCOUNTER 2021-02-19 10:40 | Inpatient (IN) | payer MEDICARE ==
[2021-02-19 11:28] LABS: Basophils % (A) 0 %; Eosinophils # (A) 0.1 k/uL (0-0.7); Eosinophils % (A) 1 %; HCT 43.9 % (34.0-46.0); HGB 14.8 gm/dL (11.4-16.0); Lymphocytes # (A) 0.6 k/uL (1.0-4.8); Lymphocytes % (A) 4 %; MCH 31.7 pg (25.0-35.0); MCHC 33.8 g/dL (31.0-37.0); MCV 93.9 fL (80.0-100.0); Mean Platelet Volume 7.5; Monocytes # (A) 0.6 k/uL (0-1.0); Monocytes % (A) 4 %; Neutrophils # (A) 13.2 k/uL (1.3-7.7); Neutrophils % (A) 90 %; Platelet Count 233 k/uL (150-450); RBC 4.68 m/uL (3.80-5.40); RDW 12.3 % (11.5-15.5); WBC 14.7 k/uL (3.8-10.6)
--- NOTE | 2021-02-19 11:36 | ED ---
Altered Mental Status HPI - General Chief Complaint: Altered Mental Status Stated Complaint: AMS Time Seen by Provider: 02/19/21 10:48 Source: patient Mode of arrival: EMS Limitations: no limitations - History of Present Illness Initial Comments: This is a 75-year-old female who presents by EMS with complaints of confusion. She states this started yesterday when she was playing cards with friends all day. She states she is wasn't feeling right. She was having some memory issues. This morning she woke up at 9 AM and cannot remember adhesive phoning could not remember that she was like her the friend yesterday. Upon arrival here she is found to be confused as to the day of the week in the month of the year though the [place] stroke scale was negative per paramedics. No complaints no other modifying factors no fevers chills nausea vomiting sweats cough or phlegm production no falls she does have a bilateral headache is mild and sharp. She points to the temporal areas. No prior episodes of the same. MD Complaint: confusion - Related Data Home Medications Medication Instructions Recorded Confirmed Omeprazole [PriLOSEC] 20 mg PO BID 10/16/15 02/19/21 diphenhydrAMINE [Benadryl] 25 mg PO HS PRN 03/24/18 02/19/21 Collagen Tab 1 tab PO DAILY 02/19/21 02/19/21 Gabapentin 300 mg PO BID 02/19/21 02/19/21 Glucosam/Dustin-Msm1/C/José Miguel/Bosw 1 tab PO DAILY 02/19/21 02/19/21 [Glucosamine-Chondroitin Tablet] Levothyroxine Sodium [Synthroid] 125 mcg PO DAILY 02/19/21 02/19/21 Magnesium Oxide [Mag-Ox] 250 mg PO DAILY 02/19/21 02/19/21 Pramipexole Di-HCl [Mirapex] 0.25 - 0.5 mg PO HS 02/19/21 02/19/21 Solifenacin Succinate 10 mg PO DAILY 02/19/21 02/19/21 Turmeric Root Extract [Turmeric] 500 mg PO DAILY 02/19/21 02/19/21 Vitamin B Complex 1 cap PO DAILY 02/19/21 02/19/21 traMADol HCl [Ultram] 50 mg PO DAILY PRN 02/19/21 02/19/21 Allergies Allergy/AdvReac Type Severity Reaction Status Date / Time sulfamethoxazole Allergy Unknown Verified 02/19/21 11:57 [From Bactrim] trimethoprim [From Bactrim] Allergy Unknown, Verified 02/19/21 11:57 NOT SURE OF ALLERGY - PER PATIENT STERI STRIPS Allergy RED, ITCHY Uncoded 02/19/21 11:57 Review of Systems ROS Statement: Those systems with pertinent positive or pertinent negative responses have been documented in the HPI. ROS Other: All systems not noted in ROS Statement are negative. Past Medical History Past Medical History: GERD/Reflux, Osteoarthritis (OA), Skin Disorder, Thyroid Disorder Additional Past Medical History / Comment(s): PRURITIS, ANXIETY RELATED. DEVELOPED ILEUS AFTER BACK SURGERY. TINNITUS. RLS. History of Any Multi-Drug Resistant Organisms: MRSA Date of last positivie culture/infection: 01/30/13 MDRO Source:: Back Past Surgical History: Back Surgery, Cholecystectomy, Hysterectomy, Joint Replacement, Orthopedic Surgery Additional Past Surgical History / Comment(s): [facility], Rt knee replacement X2, Torn rotator cuff (2 on right & once on left), [facility] aden, trigger finger aden, toe surgery-little toe, left heel surgery. Past Anesthesia/Blood Transfusion Reactions: No Reported Reaction Additional Past Anesthesia/Blood Transfusion Reaction / Comment(s): (DEVELOPED ILEUS AFTER BACK SURGERY) Past Psychological History: Anxiety Smoking Status: Former smoker Past Alcohol Use History: None Reported Past Drug Use History: None Reported - Past Family History Mother Family Medical History: Cancer Additional Family Medical History / Comment(s): CA: breast, lung Father Family Medical History: AFIB Additional Family Medical History / Comment(s): parkinsons General Exam - General Exam Comments Initial Comments: This is a well developed well-nourished awake alert oriented 2 to person and p lace and she does note some or Limitations: no limitations General appearance: alert, in no apparent distress Head exam: Present: atraumatic, normocephalic, normal inspection Eye exam: Present: normal appearance, PERRL, EOMI. Absent: scleral icterus, conjunctival injection, periorbital swelling ENT exam: Present: normal exam, mucous membranes moist Neck exam: Present: normal inspection, full ROM, other. Absent: tenderness, meningismus, lymphadenopathy Respiratory exam: Present: normal lung sounds bilaterally. Absent: respiratory distress, wheezes, rales, rhonchi, stridor Cardiovascular Exam: Present: regular rate, normal rhythm, normal heart sounds. Absent: systolic murmur, diastolic murmur, rubs, gallop, clicks GI/Abdominal exam: Present: soft, normal bowel sounds. Absent: distended, tenderness, guarding, rebound, rigid Extremities exam: Present: normal inspection, full ROM, normal capillary refill. Absent: tenderness, pedal edema, joint swelling, calf tenderness Back exam: Present: normal inspection Neurological exam: Present: alert, CN II-XII intact Psychiatric exam: Present: normal affect, normal mood Skin exam: Present: warm, dry, intact, normal color. Absent: rash Course Vital Signs 02/19/21 02/19/21 10:52 13:54 Temperature 102.4 F H 101.7 F H Pulse Rate 102 H 99 Respiratory 16 18 Rate Blood Pressure 136/64 111/84 O2 Sat by Pulse 93 L 93 L Oximetry - Reevaluation(s) Reevaluation #1: 02/19/21 14:15 I did reevaluate the patient she is more responsive and more alert with improved cognition Medical Decision Making - Medical Decision Making Reevaluation the patient she is more conversant and family members in agreement and her cognition is much improved. The patient and the suspected infectious etiology patient will be admitted and started on antibiotics. I did discuss case with Dr. manjarrez who did come the emergency department see the patient - Lab Data Result diagrams: 02/19/21 11:13 02/19/21 11:13 Lab Results 02/19/21 02/19/21 02/19/21 Range/Units 11:13 11:13 11:13 WBC 14.7 H (3.8-10.6) k/uL RBC 4.68 (3.80-5.40) m/uL Hgb 14.8 (11.4-16.0) gm/dL Hct 43.9 (34.0-46.0) % MCV 93.9 (80.0-100.0) fL MCH 31.7 (25.0-35.0) pg MCHC 33.8 (31.0-37.0) g/dL RDW 12.3 (11.5-15.5) % Plt Count 233 (150-450) k/uL MPV 7.5 Neutrophils % 90 % Lymphocytes % 4 % Monocytes % 4 % Eosinophils % 1 % Basophils % 0 % Neutrophils # 13.2 H (1.3-7.7) k/uL Lymphocytes # 0.6 L (1.0-4.8) k/uL Monocytes # 0.6 (0-1.0) k/uL Eosinophils # 0.1 (0-0.7) k/uL Basophils # 0.0 (0-0.2) k/uL PT 10.2 (9.0-12.0) sec INR 0.9 (<1.2) APTT 21.9 L (22.0-30.0) sec Sodium (137-145) mmol/L Potassium (3.5-5.1) mmol/L Chloride (98-107) mmol/L Carbon Dioxide (22-30) mmol/L Anion Gap mmol/L BUN (7-17) mg/dL Creatinine (0.52-1.04) mg/dL Est GFR (CKD-EPI)AfAm (>60 ml/min/1.73 sqM) Est GFR (CKD-EPI)NonAf (>60 ml/min/1.73 sqM) Glucose (74-99) mg/dL Calcium (8.4-10.2) mg/dL Total Bilirubin (0.2-1.3) mg/dL AST (14-36) U/L ALT (4-34) U/L Alkaline Phosphatase (38-126) U/L Creatine Kinase (30-135) U/L Troponin I (0.000-0.034) ng/mL Total Protein (6.3-8.2) g/dL Albumin (3.5-5.0) g/dL Urine Color Yellow Urine Appearance Clear (Clear) Urine pH 6.5 (5.0-8.0) Ur Specific [place] >1.050 H (1.001-1.035) Urine Protein Trace H (Negative) Urine Glucose (UA) Negative (Negative) Urine Ketones 4+ H (Negative) Urine Blood Negative (Negative) Urine Nitrite Negative (Negative) Urine Bilirubin Negative (Negative) Urine Urobilinogen <2.0 (<2.0) mg/dL Ur Leukocyte Esterase Negative (Negative) Influenza Type A (PCR) (Not Detectd) Influenza Type B (PCR) (Not Detectd) RSV (PCR) (Not Detectd) SARS-CoV-2 (PCR) (Not Detectd) 02/19/21 02/19/21 02/19/21 Range/Units 11:13 11:13 11:13 WBC (3.8-10.6) k/uL RBC (3.80-5.40) m/uL Hgb (11.4-16.0) gm/dL Hct (34.0-46.0) % MCV (80.0-100.0) fL MCH (25.0-35.0) pg MCHC (31.0-37.0) g/dL RDW (11.5-15.5) % Plt Count (150-450) k/uL MPV Neutrophils % % Lymphocytes % % Monocytes % % Eosinophils % % Basophils % % Neutrophils # (1.3-7.7) k/uL Lymphocytes # (1.0-4.8) k/uL Monocytes # (0-1.0) k/uL Eosinophils # (0-0.7) k/uL Basophils # (0-0.2) k/uL PT (9.0-12.0) sec INR (<1.2) APTT (22.0-30.0) sec Sodium 138 (137-145) mmol/L Potassium 4.1 (3.5-5.1) mmol/L Chloride 101 (98-107) mmol/L Carbon Dioxide 28 (22-30) mmol/L Anion Gap 9 mmol/L BUN 12 (7-17) mg/dL Creatinine 0.58 (0.52-1.04) mg/dL Est GFR (CKD-EPI)AfAm >90 (>60 ml/min/1.73 sqM) Est GFR (CKD-EPI)NonAf >90 (>60 ml/min/1.73 sqM) Glucose 108 H (74-99) mg/dL Calcium 9.3 (8.4-10.2) mg/dL Total Bilirubin 0.6 (0.2-1.3) mg/dL AST 29 (14-36) U/L ALT 17 (4-34) U/L Alkaline Phosphatase 126 (38-126) U/L Creatine Kinase 57 (30-135) U/L Troponin I <0.012 (0.000-0.034) ng/mL Total Protein 7.2 (6.3-8.2) g/dL Albumin 4.5 (3.5-5.0) g/dL Urine Color Urine Appearance (Clear) Urine pH (5.0-8.0) Ur Specific [place] (1.001-1.035) Urine Protein (Negative) Urine Glucose (UA) (Negative) Urine Ketones (Negative) Urine Blood (Negative) Urine Nitrite (Negative) Urine Bilirubin (Negative) Urine Urobilinogen (<2.0) mg/dL Ur Leukocyte Esterase (Negative) Influenza Type A (PCR) Not Detected (Not Detectd) Influenza Type B (PCR) Not Detected (Not Detectd) RSV (PCR) Not Detected (Not Detectd) SARS-CoV-2 (PCR) Not Detected (Not Detectd) - EKG Data -: EKG Interpreted by Me EKG shows normal: sinus rhythm EKG Comments: Neuro sinus rhythm of 100 W[place] interval 148 QRS 74 QT since QTC 346/446 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
[2021-02-19 11:40] LABS: ALT 17 U/L (4-34); AST 29 U/L (14-36); African American GFR (CKD) >90 (>60 ml/min/1.73 sqM); Albumin 4.5 g/dL (3.5-5.0); Alkaline Phosphatase 126 U/L (38-126); Anion Gap 9 mmol/L; Blood Urea Nitrogen 12 mg/dL (7-17); Calcium 9.3 mg/dL (8.4-10.2); Carbon Dioxide 28 mmol/L (22-30); Chloride 101 mmol/L (98-107); Creatine Kinase 57 U/L (30-135); Glucose 108 mg/dL (74-99); Non-African American GFR(CKD) >90 (>60 ml/min/1.73 sqM); Potassium 4.1 mmol/L (3.5-5.1); Sodium 138 mmol/L (137-145); Total Bilirubin 0.6 mg/dL (0.2-1.3); Total Protein 7.2 g/dL (6.3-8.2)
[2021-02-19 11:48] LABS: INR 0.9 (<1.2); Partial Thromboplastin Time 21.9 sec (22.0-30.0); Prothrombin Time 10.2 sec (9.0-12.0)
--- NOTE | 2021-02-19 11:56 | CT ---
EXAMINATION TYPE: CT brain wo con for TPA DATE OF EXAM: 02/19/2021 COMPARISON: None INDICATION: altered mental status DLP: 1100 mGycm, Automated exposure control for dose reduction was used. CONTRAST: None CT of the brain is performed utilizing 3 mm thick sections through the posterior fossa and 3 mm thick sections through the remaining calvarium. Study is performed within 24 hours of arrival to the hosp ital. No abnormal hyperdensity is present to suggest an acute intracranial hemorrhage. No mass lesion is evident. No acute infarcts are evident. Very minimal periventricular white matter hypodensity may be present l ikely on the basis of chronic white matter ischemic change. Ventricles and sulci are appropriate for the patient age. Paranasal sinuses and mastoid air cells within the [id number] are clear. IMPRESSIONS: 1. Minimal chronic appearing tessie-ventricular white matter ischemic change. 2. No acute intracranial process
--- NOTE | 2021-02-19 12:00 | CT ---
EXAMINATION TYPE: CT angio head neck DATE OF EXAM: 02/19/2021 HISTORY: altered mental status COMPARISON: None CT DLP: 422.1 mGycm. Automated Exposure Control for Dose Reduction was Utilized. TECHNIQUE: CTA scan of the neck is performed with IV Contrast, patient injected with 65 mL of Isovue 370, axial images are obtained, coronal and sagittal reformatted images are reviewed. Three-D recons tructed images are created on an independent workstation and reviewed. Source images are reviewed. FINDINGS: Carotid/Vascular Structures: There is a three-vessel arch. Vertebral arteries are codominant. Carotid bifurcations appear normal without significant flow-limiting stenosis. Carotid pathway is tortuous. Internal carotid arteries are patent to the level of the skull base vertebral arteries are patent to the skull base Cervical of [place]: Vertebral basilar system appears normal. Posterior cerebral vasculature is unrema rkable. Internal carotid arteries bifurcate normally into A1 and M1 segments. A2 segments are normal. The anterior communicating artery is patent. Left Posterior communicating artery is patent. Right po sterior communicating artery is patent. IMPRESSION: 1. No flow-limiting stenosis bilateral carotid bifurcations. Neck Vessels are tortuous. 2. Normal [place] of [place]
--- NOTE | 2021-02-19 12:36 | XR ---
EXAMINATION TYPE: XR chest 2V DATE OF EXAM: 02/19/2021 COMPARISON: Prior chest x-ray 04/01/2018, CT 02/08/2021 HISTORY: Altered mental status TECHNIQUE: Frontal and lateral views of the chest are obtained. FINDINGS: Postop changes are stable, patient is rotated. No evident pleural effusion or pneumothorax . Patchy retrocardiac density is present. Cardiomediastinal silhouette within normal limits. Kyphosis is present centered near the thoracolumbar junction as on prior. Suspect is a hiatal hernia present, retrocardiac density with central lucency is present consistent with partial intrathoracic stomach. IMPRESSION: Probable lower lobe atelectasis with hiatal partial intrathoracic stomach, patient is ro tated.
[2021-02-19] MEDS ORDERED: KETOROLAC 15 MG/ML 1 ML VIAL IVP STA (13:22)
[2021-02-19] MEDS ORDERED: cefTRIAXone IN SWFI 1,000 MG/10 ML SYRINGE IVP STA (14:13)
[2021-02-19] MEDS ORDERED: VANCOMYCIN IV PER PHARMACY 1 EACH MISC MISCELLANE PRN (14:17)
[2021-02-19] MEDS ORDERED: NALOXONE 0.4 MG/ML 1 ML VIAL IV PRN (14:25)
[2021-02-19] MEDS ORDERED: diphenhydrAMINE 25 MG CAP PO PRN (14:27)
--- NOTE | 2021-02-19 14:34 | P.HPIM ---
History of Present Illness This is a pleasant 75 years old female with past medical history of hypothyroidism, GERD, osteoarthritis. Presents because of severe headache stating it is 10/10 in the frontal across the forehead, felt like pounding and nonspecific the pain wakes her up from sleep earlier morning. Associated with not feeling himself, last that she was playing cards and she was not plain good, usually she once but last night she did not when any. Today she could not find her numbers when using The phone. She looks alert and oriented to time, place and person. She denies cough or chest pain or dyspnea although she feels some chest tightness. Abdominal pain, no nausea vomiting, she has one bout of loose stool. No dysuria On admission she has a fever of 102, saturating 93% on room air. Labs showing leukocytosis of 14.7 K. Risks of CBC, BMP, liver enzymes are unremarkable. Urinalysis is not suspicious for infection. CT of the cervical spine and brain was negative for acute process Chest x-ray showing probable lower lobe atelectasis with hiatal hernia CTA of the brain, no flow-limiting stenosis. Normal [place] Review of Systems CONSTITUTIONAL: No fever, no malaise, no fatigue. HEENT: No recent visual problems or hearing problems. Denied any sore throat. CARDIOVASCULAR: No orthopnea, PND, no palpitations, no syncope. PULMONARY: No shortness of breath, no cough, no hemoptysis. GASTROINTESTINAL: No diarrhea, no nausea, no vomiting, no abdominal pain. Normoactive bowel sounds. NEUROLOGICAL:no weakness, no numbness. HEMATOLOGICAL: Denies any bleeding or petechiae. GENITOURINARY: Denies any burning micturition, frequency, or urgency. MUSCULOSKELETAL/RHEUMATOLOGICAL: Denies any joint pain, swelling, or any muscle pain. ENDOCRINE: Denies any polyuria or polydipsia. Past Medical History Past Medical History: GERD/Reflux, Osteoarthritis (OA), Skin Disorder, Thyroid Disorder Additional Past Medical History / Comment(s): PRURITIS, ANXIETY RELATED. DEVELOPED ILEUS AFTER BACK SURGERY. TINNITUS. RLS. History of Any Multi-Drug Resistant Organisms: MRSA Date of last positivie culture/infection: 01/30/13 MDRO Source:: Back Past Surgical History: Back Surgery, Cholecystectomy, Hysterectomy, Joint Replacement, Orthopedic Surgery Additional Past Surgical History / Comment(s): [facility], Rt knee replacement X2, Torn rotator cuff (2 on right & once on left), CTR aden, trigger finger aden, toe surgery-little toe, left heel surgery. Past Anesthesia/Blood Transfusion Reactions: No Reported Reaction Additional Past Anesthesia/Blood Transfusion Reaction / Comment(s): (DEVELOPED ILEUS AFTER BACK SURGERY) Past Psychological History: Anxiety Smoking Status: Former smoker Past Alcohol Use History: None Reported Past Drug Use History: None Reported - Past Family History Mother Family Medical History: Cancer Additional Family Medical History / Comment(s): CA: breast, lung Father Family Medical History: AFIB Additional Family Medical History / Comment(s): parkinsons Medications and Allergies Home Medications Medication Instructions Recorded Confirmed Type Omeprazole [PriLOSEC] 20 mg PO BID 10/16/15 02/19/21 History diphenhydrAMINE [Benadryl] 25 mg PO HS PRN 03/24/18 02/19/21 History Collagen Tab 1 tab PO DAILY 02/19/21 02/19/21 History Gabapentin 300 mg PO BID 02/19/21 02/19/21 History Glucosam/Dustin-Msm1/C/José Miguel/Bosw 1 tab PO DAILY 02/19/21 02/19/21 History [Glucosamine-Chondroitin Tablet] Levothyroxine Sodium [Synthroid] 125 mcg PO DAILY 02/19/21 02/19/21 History Magnesium Oxide [Mag-Ox] 250 mg PO DAILY 02/19/21 02/19/21 History Pramipexole Di-HCl [Mirapex] 0.25 - 0.5 mg PO HS 02/19/21 02/19/21 History Solifenacin Succinate 10 mg PO DAILY 02/19/21 02/19/21 History Turmeric Root Extract [Turmeric] 500 mg PO DAILY 02/19/21 02/19/21 History Vitamin B Complex 1 cap PO DAILY 02/19/21 02/19/21 History traMADol HCl [Ultram] 50 mg PO DAILY PRN 02/19/21 02/19/21 History Allergies Allergy/AdvReac Type Severity Reaction Status Date / Time sulfamethoxazole Allergy Unknown Verified 02/19/21 11:57 [From Bactrim] trimethoprim [From Bactrim] Allergy Unknown, Verified 02/19/21 11:57 NOT SURE OF ALLERGY - PER PATIENT STERI STRIPS Allergy RED, ITCHY Uncoded 02/19/21 11:57 Physical Exam Vitals: Vital Signs Temp Pulse Resp BP Pulse Ox 02/19/21 10:52 102.4 F H 102 H 16 136/64 93 L Intake and Output 02/18/21 02/19/21 02/19/21 22:59 06:59 14:59 Other: Weight 68.039 kg GENERAL: The patient is alert and oriented x3, not in any acute distress. Well developed, well nourished. HEENT: Pupils are round and equally reacting to light. EOMI. No scleral icterus. No conjunctival pallor. Normocephalic, atraumatic. No pharyngeal erythema. No th yromegaly. CARDIOVASCULAR: S1 and S2 present. No murmurs, rubs, or gallops. PULMONARY: Chest is clear to auscultation, no wheezing or crackles. ABDOMEN: Soft, nontender, nondistended, normoactive bowel sounds. No palpable organomegaly. MUSCULOSKELETAL: No joint swelling or deformity. EXTREMITIES: No cyanosis, clubbing, or pedal edema. -NEUROLOGICAL: Gross neurological examination did not reveal any focal deficits. Cranial nerves are grossly intact. 5/5, sensation is intact. Mild neck st iffness and neck pain on flexion SKIN: No rashes. No petechiae Results CBC & Chem 7: 02/19/21 11:13 02/19/21 11:13 Labs: Abnormal Lab Results - Last 24 Hours (Table) 02/19/21 02/19/21 02/19/21 Range/Units 11:13 11:13 11:13 WBC 14.7 H (3.8-10.6) k/uL Neutrophils # 13.2 H (1.3-7.7) k/uL Lymphocytes # 0.6 L (1.0-4.8) k/uL APTT 21.9 L (22.0-30.0) sec Glucose (74-99) mg/dL Ur Specific [place] >1.050 H (1.001-1.035) Urine Protein Trace H (Negative) Urine Ketones 4+ H (Negative) 02/19/21 Range/Units 11:13 WBC (3.8-10.6) k/uL Neutrophils # (1.3-7.7) k/uL Lymphocytes # (1.0-4.8) k/uL APTT (22.0-30.0) sec Glucose 108 H (74-99) mg/dL Ur Specific [place] (1.001-1.035) Urine Protein (Negative) Urine Ketones (Negative) Assessment and Plan Assessment: Severe headache with mild altered mental status suspicious for meningoencephalitis Probable lower lobe atelectasis versus pneumonia hypothyroidism Plan: This is a pleasant 75 years old female who 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 Consult neurology service, Consult infectious disease service Follow blood culture Start normal saline at 75 mL/h Consult IR service for lumbar puncture Labs and medication were reviewed.. Continue same treatment. Continue with symptomatic treatment. Resume home medication. Monitor lytes and vitals. DVT and GI prophylaxis. Further recommendations depends on the clinical course of the patient Prognosis is guarded
[2021-02-19] MEDS ORDERED: VANCOMYCIN 1,500 MG in SODIUM CHLORIDE 0.9% 250 ML IVPB ONE (14:45)
[2021-02-19 15:11] LABS: Appearance,Urine Clear (Clear); Bilirubin,Urine Negative (Negative); Blood,Urine Negative (Negative); Color,Urine Yellow; Glucose,Urine (UA) Negative (Negative); Ketones,Urine Negative (Negative); Leukocyte Esterase,Urine Negative (Negative); Nitrite,Urine Negative (Negative); Protein,Urine Trace (Negative); Urobilinogen,Urine <2.0 mg/dL (<2.0)
[2021-02-19 15:12] LABS: Specific Gravity,Urine >1.050 (1.001-1.035)
[2021-02-19] MEDS ORDERED: AMPICILLIN 2,000 MG in SODIUM CHLORIDE 0.9% 100 ML IVPB SCH (16:00)
[2021-02-19] MEDS: SODIUM CHLORIDE 0.9% 1,000 ML IV SCH (16:19)
[2021-02-19] MEDS: ACETAMINOPHEN TAB 325 MG TAB PO PRN (16:35)
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
[2021-02-19] MEDS ORDERED: ACYCLOVIR SODIUM 700 MG in SODIUM CHLORIDE 0.9% 100 ML IVPB SCH (17:00)
[2021-02-19 18:18] LABS: Appearance,CSF Clear; CSF Tube Number 4; CSF Tube Volume 3.75; Nucleated Cells, CSF 1 u/L (0-5); Red Blood Cell,CSF 0 u/L (0-10)
[2021-02-19 18:22] LABS: Glucose,CSF 59 mg/dL (40-70); Total Protein,CSF 63 mg/dL (12-60)
--- NOTE | 2021-02-19 18:26 | P.PN ---
Progress Note - Text Progress Note Date: 02/19/21 Anesthesiology consult for Lumbar puncture Consulted by neurology for pt with high fevers and headache. Pt not on anticoagulants and denies any bleeding disorders. Consent obtained with risks of headache and paralysis discussed. Patient placed in a right lateral decubitus position and prepped and draped. 1% lidocaine 5 ml infiltrated subcutaneously. 20 g LP needle inserted to DEX. Clear CSF obtained. Opening pressure measured at 13 mmH2O. 4 aliquots of 3-4 ml obtained by gravity. St ylet reiserted prior to needle withdrawal. Pt tolerated the procedure well
[2021-02-19] MEDS: GABAPENTIN 300 MG CAP PO SCH (20:26)
[2021-02-19] MEDS: PRAMIPEXOLE 0.25 MG TAB PO SCH (20:26)
[2021-02-19] MEDS: FAMOTIDINE 20 MG/2 ML VIAL IV SCH (20:26)
[2021-02-19] MEDS: ACYCLOVIR SODIUM 700 MG in SODIUM CHLORIDE 0.9% 100 ML IVPB SCH (21:17)
[2021-02-19] MEDS: ONDANSETRON 4 MG/2 ML VIAL IVP PRN (23:18)
[2021-02-20] MEDS: ACETAMINOPHEN TAB 325 MG TAB PO PRN ×3 (00:03→14:27)
[2021-02-20] MEDS: SODIUM CHLORIDE 0.9% 1,000 ML IV SCH ×2 (05:21→17:13)
[2021-02-20] MEDS: ACYCLOVIR SODIUM 700 MG in SODIUM CHLORIDE 0.9% 100 ML IVPB SCH ×3 (06:07→21:38)
[2021-02-20] MEDS: LEVOTHYROXINE 125 MCG TAB PO SCH (06:08)
[2021-02-20] MEDS ORDERED: VANCOMYCIN 1,250 MG in SODIUM CHLORIDE 0.9% 250 ML IVPB SCH (08:00)
[2021-02-20] MEDS: TROSPIUM CHLORIDE 20 MG TABLET PO SCH ×2 (08:15→19:40)
[2021-02-20] MEDS: PANTOPRAZOLE 40 MG TABLET PO SCH (08:15)
[2021-02-20] MEDS: MAGNESIUM OXIDE 400 MG TAB PO SCH (08:16)
[2021-02-20] MEDS: FAMOTIDINE 20 MG/2 ML VIAL IV SCH ×2 (08:16→19:37)
[2021-02-20] MEDS: GABAPENTIN 300 MG CAP PO SCH ×2 (08:16→19:40)
[2021-02-20 08:27] LABS: Basophils % (A) 0 %; Eosinophils % (A) 0 %; HGB 13.4 gm/dL (11.4-16.0); Lymphocytes # (A) 0.5 k/uL (1.0-4.8); Lymphocytes % (A) 5 %; MCH 30.9 pg (25.0-35.0); MCV 96.7 fL (80.0-100.0); Monocytes # (A) 0.4 k/uL (0-1.0); Monocytes % (A) 4 %; Neutrophils % (A) 89 %; Platelet Count 197 k/uL (150-450); RBC 4.35 m/uL (3.80-5.40); WBC 10.1 k/uL (3.8-10.6)
[2021-02-20 08:45] LABS: Potassium 3.6 mmol/L (3.5-5.1)
[2021-02-20 08:46] LABS: ALT 16 U/L (4-34); AST 30 U/L (14-36); African American GFR (CKD) >90 (>60 ml/min/1.73 sqM); Albumin 3.7 g/dL (3.5-5.0); Albumin/Globulin Ratio 1.4; Alkaline Phosphatase 110 U/L (38-126); Anion Gap 8 mmol/L; Blood Urea Nitrogen 15 mg/dL (7-17); Calcium 8.6 mg/dL (8.4-10.2); Carbon Dioxide 26 mmol/L (22-30); Chloride 104 mmol/L (98-107); Globulin 2.6 g/dL; Glucose 120 mg/dL (74-99); Magnesium 1.8 mg/dL (1.6-2.3); Non-African American GFR(CKD) >90 (>60 ml/min/1.73 sqM); Sodium 138 mmol/L (137-145); Total Bilirubin 0.3 mg/dL (0.2-1.3); Total Protein 6.3 g/dL (6.3-8.2)
[2021-02-20] MEDS ORDERED: NON FORMULARY DRUG (Turmeric Root Extract [Turmeric] 500 MG Capsule) PO SCH (09:00)
[2021-02-20] MEDS ORDERED: NON FORMULARY DRUG (Vitamin B Complex [Vitamin B Complex] 1 EACH Capsule) PO SCH (09:00)
[2021-02-20] MEDS ORDERED: NON FORMULARY DRUG (Glucosam/Chon-Msm1/C/Mang/Bosw [Glucosamine-Chondroitin Tablet] 1 EACH PO SCH (09:00)
--- NOTE | 2021-02-20 14:11 | P.PN ---
Subjective Progress Note Date: 02/20/21 The patient seen at bedside and she stated that she continues to have this headache over the bilateral frontal and it's 5/10. Denies any nausea or vomiting. She continues to have the ringing in both ears appear denies any focal weakness, numbness, difficulty getting her words out, denies any rash. Objective - Vital Signs Vital signs: Vital Signs Temp 98.5 F 02/20/21 08:00 Pulse 93 02/20/21 08:00 Resp 14 02/20/21 08:00 BP 108/65 02/20/21 08:00 Pulse Ox 98 02/20/21 08:00 Intake & Output 02/19/21 02/20/21 02/20/21 18:59 06:59 18:59 Weight 68.039 kg 68.039 kg Other: Voiding Method Toilet Toilet # Voids 2 # Bowel Movements 1 - Exam GENERAL: The patient is lying in bed and is in milld acute distress. HENT: Negative for Brudzinksi or Kernig sign. NEUROLOGICAL: Higher mental function: The patient is awake, alert, oriented to self, place and time. Patient is following commands. No aphasia and no neglect. Cranial nerves: The pupils are round, equal and reactive to light and accommodation. Visual meehan are full to confrontation throughout. Extraocular movement is intact no nystagmus is noted. Facial sensation is normal to touch throughout. The facial strength is normal throughout. Hearing is normal bilaterally to hand rub. Tongue is midline and moved [id number] without any difficulty. No dysarthria is noted. Shoulder shrug is normal bilaterally. Motor: Gait is deferred. The strength is 5 over 5 throughout. Normal tone and bulk. Cerebellum: Normal finger to nose heel to pandey bilaterally. Sensation: Sensation is normal to touch throughout. Reflexes (right/left): 2+ throughout upper while lowers are 1+. Plantars are downgoing bilaterally. WORK-UP: CT head is reported as Minimal chronic appearing tessie-ventricular white matter ischemic change. No acute intracranial process. CTA head and neck: No flow-limiting stenosis bilateral carotid bifurcations. Neck vessels are tortuous. Normal [place]. Chest x-rays reported as probable lower lobe atelectasis with hiatal partial intrathoracic stomach, patient is rotated CSF: Is clear, colorless, 0 red blood cell, 1 nucleated cells, glucose of 59 and the 14 is 63 the protein is just slightly elevated more than normal (normal is 12-60). No POC glucose was done around time of LP. The opening pressure is 13 mm water which is not elevated. CSF Gram stain shows no organisms seen. Blood cultures no growth after 24 hours Urinalysis is negative for urinary tract infection. - Labs CBC & Chem 7: 02/20/21 08:15 02/20/21 08:15 Labs: Abnormal Lab Results - Last 24 Hours (Table) 02/19/21 02/19/21 02/20/21 Range/Units 15:06 17:33 08:15 Neutrophils # 9.0 H (1.3-7.7) k/uL Lymphocytes # 0.5 L (1.0-4.8) k/uL Glucose (74-99) mg/dL Ur Specific [place] >1.050 H (1.001-1.035) Urine Protein Trace H (Negative) CSF Total Protein 63 H (12-60) mg/dL 02/20/21 Range/Units 08:15 Neutrophils # (1.3-7.7) k/uL Lymphocytes # (1.0-4.8) k/uL Glucose 120 H (74-99) mg/dL Ur Specific [place] (1.001-1.035) Urine Protein (Negative) CSF Total Protein (12-60) mg/dL Microbiology - Last 24 Hours (Table) 02/19/21 11:13 Blood Culture - Preliminary Blood No Growth after 24 hours 02/19/21 17:33 CSF Gram Stain - Preliminary Cerebral Spinal Fluid CSF Culture - Preliminary Assessment and Plan Assessment: * New onset Cephalgia with fever and leukocytosis and some confusion: Unknown cause. CSF is negative for meningoencephalitis. * Chronic lower back pain s/p surgery with jaqui placed (5 years ago) * Chronic neck pain * Hypothyroidism * Osteoarthritis * GERD Plan: * Pending MRI of the brain with and without. * On acyclovir 10mg/kg every 8 hours (700mg q8 hrs), vancomycin, Ceftriaxone 2gm every 12 hours. From a neurology perspective she doesn't have meningeal encephalitis but will defer the antibiotic and that antiviral discontinuation/management to the ID team. * Pending herpes HSV 1 and 2, oligoclonal bands, comprehensive of viral detection. * Pending EEG. Will not start the patient on antiepileptic drug unless there is epileptiform discharges or seizure on the EEG. * Infection disease team is consulted. The plan is discussed with the patient and her nurse. Will continue to follow Chepe Siu M.D. Neuro-hospitalist Time with Patient: Less than 30
--- NOTE | 2021-02-20 15:06 | P.PN ---
Subjective This is a pleasant 75 years old female with past medical history of hypothyroidism, GERD, osteoarthritis. Presents because of severe headache stati ng it is 10/10 in the frontal across the forehead, felt like pounding and nonspecific the pain wakes her up from sleep earlier morning. Associated with not feeling himself, last that she was playing cards and she was not plain good, usually she once but last night she did not when any. Today she could not find her numbers when using The phone. She looks alert and oriented to time, place and person. She denies cough or chest pain or dyspnea although she feels some chest tightness. Abdominal pain, no nausea vomiting, she has one bout of loose stool. No dysuria On admission she has a fever of 102, saturating 93% on room air. Labs showing leukocytosis of 14.7 K. Risks of CBC, BMP, liver enzymes are unremarkable. Urinalysis is not suspicious for infection. CT of the cervical spine and brain was negative for acute process Chest x-ray showing probable lower lobe atelectasis with hiatal hernia CTA of the brain, no flow-limiting stenosis. Normal [place] [facility] [place] 02/20/2021 Patient was admitted yesterday for concern for meningocele colitis given her headache, ringing in the ear and feeling not self with some clumsiness and some activities. Lumbar puncture came back negative. Today she still complaining from headache and ringing in the ear and feeling tired and little lethargic she reports mild improvement. She is also reporting diarrhea from before coming to the hospital. Her fever subsided within discharge antibiotics she is receiving, she is saturating 92-98% on room air. Postop vitals are stable. Her leukocytosis improved down to normal at 10.1 K. Risks of CBC, BMP and liver enzymes still unremarkable. EEG and MRI of the brain were ordered which might be helpful for better evaluation of the intracranial process Continue with normal saline at 75 mL/h Currently she kept on acyclovir, IV vancomycin and Rocephin Case was discussed with ID and neurology team Review of Systems CONSTITUTIONAL: No fever, no malaise, no fatigue. HEENT: No recent visual problems or hearing problems. Denied any sore throat. CARDIOVASCULAR: No orthopnea, PND, no palpitations, no syncope. PULMONARY: No shortness of breath, no cough, no hemoptysis. GASTROINTESTINAL: no nausea, no vomiting, no abdominal pain. Normoactive bowel sounds. NEUROLOGICAL:no weakness, no numbness. HEMATOLOGICAL: Denies any bleeding or petechiae. Active Medications Generic Name Dose Route Start Last Admin Trade Name Freq PRN Reason Stop Dose Admin Acetaminophen 650 mg 02/19/21 15:26 02/20/21 14:27 Acetaminophen Tab 325 Mg Tab PO 650 mg Q6HR PRN Administration Fever and/ or Pain Diphenhydramine HCl 25 mg 02/19/21 14:27 Diphenhydramine 25 Mg Cap PO HS PRN insomnia/itching Famotidine 20 mg 02/19/21 21:00 02/20/21 08:16 Famotidine 20 Mg/2 Ml Vial IV 20 mg Q12HR MATT Administration Gabapentin 300 mg 02/19/21 21:00 02/20/21 08:16 Gabapentin 300 Mg Cap PO 300 mg BID MATT Administration Vancomycin HCl 1,250 mg/ 250 mls @ 125 mls/hr 02/20/21 08:00 02/20/21 08:15 Sodium Chloride IVPB 125 mls/hr Q16H MATT Administration Sodium Chloride 1,000 mls @ 75 mls/hr 02/19/21 14:45 02/20/21 05:21 Saline 0.9% IV Not Given .[id number] MATT Ceftriaxone Sodium 2 gm/ 50 mls @ 100 mls/hr 02/19/21 16:00 02/20/21 08:16 Sodium Chloride IVPB 100 mls/hr Q12HR MATT Administration Acyclovir Sodium 700 mg/ 114 mls @ 114 mls/hr 02/19/21 21:00 02/20/21 14:28 Sodium Chloride IVPB 114 mls/hr Q8H MATT Administration Levothyroxine Sodium 125 mcg 02/20/21 06:30 02/20/21 06:08 Levothyroxine 125 Mcg Tab PO 125 mcg DAILY@0630 MATT Administration Magnesium Oxide 200 mg 02/20/21 09:00 02/20/21 08:16 Magnesium Oxide 400 Mg Tab PO 200 mg DAILY MATT Administration Miscellaneous Information 0 each 02/21/21 15:00 Vancomycin Trough Due 1 Each Misc MISCELLANE 02/21/21 15:01 DIRECTED ONE Naloxone HCl 0.2 mg 02/19/21 14:25 Naloxone 0.4 Mg/Ml 1 Ml Vial IV Q2M PRN Opioid Reversal Ondansetron HCl 4 mg 02/19/21 23:08 02/19/21 23:18 Ondansetron 4 Mg/2 Ml Vial IVP 4 mg Q6HR PRN Administration Nausea And Vomiting Pantoprazole Sodium 40 mg 02/20/21 07:30 02/20/21 08:15 Pantoprazole 40 Mg Tablet PO 40 mg [id number] MATT Administration Pramipexole Dihydrochloride 0.25 mg 02/19/21 21:00 02/19/21 20:26 Pramipexole 0.25 Mg Tab PO 0.25 mg HS MATT Administration Tramadol HCl 50 mg 02/19/21 14:27 Tramadol 50 Mg Tab PO DAILY PRN Pain Trospium 20 mg 02/20/21 09:00 02/20/21 08:15 Trospium Chloride 20 Mg Tablet PO 20 mg BID MATT Administration Objective - Vital Signs Vital signs: Vital Signs Temp 98.5 F 02/20/21 08:00 Pulse 93 02/20/21 08:00 Resp 14 02/20/21 08:00 BP 108/65 02/20/21 08:00 Pulse Ox 98 02/20/21 08:00 Intake & Output 02/19/21 02/20/21 02/20/21 18:59 06:59 18:59 Weight 68.039 kg 68.039 kg Other: Voiding Method Toilet Toilet # Voids 2 # Bowel Movements 1 - Labs CBC & Chem 7: 02/20/21 08:15 02/20/21 08:15 Labs: Abnormal Lab Results - Last 24 Hours (Table) 02/19/21 02/19/21 02/20/21 Range/Units 15:06 17:33 08:15 Neutrophils # 9.0 H (1.3-7.7) k/uL Lymphocytes # 0.5 L (1.0-4.8) k/uL Glucose (74-99) mg/dL Ur Specific [place] >1.050 H (1.001-1.035) Urine Protein Trace H (Negative) CSF Total Protein 63 H (12-60) mg/dL 02/20/21 Range/Units 08:15 Neutrophils # (1.3-7.7) k/uL Lymphocytes # (1.0-4.8) k/uL Glucose 120 H (74-99) mg/dL Ur Specific [place] (1.001-1.035) Urine Protein (Negative) CSF Total Protein (12-60) mg/dL Microbiology - Last 24 Hours (Table) 02/19/21 12:06 Blood Culture - Preliminary Blood No Growth after 24 hours 02/19/21 11:13 Blood Culture - Preliminary Blood No Growth after 24 hours 02/19/21 17:33 CSF Gram Stain - Preliminary Cerebral Spinal Fluid CSF Culture - Preliminary Assessment and Plan Assessment: Severe headache with ranging sounding the ears. Suspicion for meningoence phalitis is very low with normal LP. Pending MRI and EEG of the brain Diarrhea. Probable lower lobe atelectasis versus pneumonia hypothyroidism Plan: This is a pleasant 75 years old female who presents with fever of unknown source of infection. Check C. diff. Follow-up Start the patient on empiric antibiotics of vancomycin pharmacy to dose and ceftriaxone. Consult neurology service, Consult infectious disease service Follow blood culture Start normal saline at 75 mL/h Labs and medication were reviewed.. Continue same treatment. Continue with symptomatic treatment. Resume home medication. Monitor lytes and vitals. DVT and GI prophylaxis. Further recommendations depends on the clinical course of the patient Prognosis is guarded
[2021-02-20] MEDS: IOPAMIDOL CONTRAST (ORAL USE) VIAL PO PRN ×2 (15:49→17:13)
--- NOTE | 2021-02-20 16:32 | EEG ---
ELECTROENCEPHALOGRAM REPORT DATE OF SERVICE: 02/20/2021 CLINICAL HISTORY: This is a 75-year-old woman who had some confusion. The video EEG is obtained to evaluate for seizure epileptiform activity. RELEVANT MEDICATIONS: The patient is not on any antiepileptic drugs. EEG TYPE: A routine 21 channel EEG is performed with video using the 10/20 electrode placement system. DESCRIPTION: Wakefulness and drowsiness are obtained. During wakefulness, there is a posterior dominant rhythm of low to moderate voltage, well modulated, of 8-8.5 hertz activity. During drowsiness, there is slowing attenuation of the background activity. There is no physiological stage II sleep architecture. There is no focal slowing. There are rare to occasional moderate to high voltage of 1-1.5 hertz, generalized rhythmic delta activity with frontal predominanc. Interictal and ictal is none. ACTIVATION PROCEDURE: Photic stimulation did not evoke a posterior driving response. There is no abnormality during photic state. Hyperventilation is not performed. CLINICAL INTERPRETATION: This is a normal routine EEG. There are no focal slowing, epileptiform discharge or seizure on the EEG. Clinical correlation is recommended. MMODL / IJN: [id number] / MTDD
--- NOTE | 2021-02-20 17:09 | P.CONS ---
History of Present Illness - Reason for Consult Consult date: 02/20/21 Meningeoencephalitis Requesting physician: Brian E Sheet - Chief Complaint headache x 1 day - History of Present Illness Patient is a 75-year female presenting to the ER yesterday morning for evaluation of a headache that apparently started the night before presentation to hospital patient did mention that on Thursday she was not actually thinking right while playing the cards and was not feeling that good did not recall if she was having any fever that day that night the patient started having a headache which was severe almost out of 10 throbbing in nature patient did have some associated nausea but no vomiting no photophobia patient denies having any chest pain no shortness with minimal cough no abdominal pain did not have any diarrhea before come to the hospital however she still having diarrhea while here in the hospital on presentation to the hospital the patient did have a fever of 102 F patient did have white count of 14.7 with a left shift kidney function was normal electrolytes were normal there was abnormal urine was negative: PCR was negative influenza PCR was negative as well patient did have a CT of the brain that was negative for acute intracranial process patient did have a chest x-ray probable her lower lobe atelectasis with hiatal partial intrathoracic stomach patient did have a lumbar puncture completed CSF finding was colorless only 1 WBC protein was 63 glucose 59 patient has been treated with acyclovir Rocephin 2 g every 12 vancomycin infectious disease was consulted for further management consulted for management cellulitis. As of this morning the patient is afebrile patient headache is improved but not completely gone and no new symptoms. Review of Systems Positive point has been mentioned in the HPI rest of the systems are negative Past Medical History Past Medical History: GERD/Reflux, Osteoarthritis (OA), Skin Disorder, Thyroid Disorder Additional Past Medical History / Comment(s): PRURITIS, ANXIETY RELATED. DEVELOPED ILEUS AFTER BACK SURGERY. TINNITUS. RLS. History of Any Multi-Drug Resistant Organisms: MRSA Year Discovered:: 01/30/13 MDRO Source:: Back Past Surgical History: Back Surgery, Cholecystectomy, Hysterectomy, Joint Replacement, Orthopedic Surgery Additional Past Surgical History / Comment(s): Right knee replacement X2, Torn rotator cuff (2 on right & once on left), CTR aden, trigger finger aden, toe surgery-little toe, left heel surgery. Past Anesthesia/Blood Transfusion Reactions: No Reported Reaction Additional Past Anesthesia/Blood Transfusion Reaction / Comm: (DEVELOPED ILEUS AFTER BACK SURGERY) Past Psychological History: Anxiety Smoking Status: Former smoker Past Alcohol Use History: None Reported Additional Past Alcohol Use History / Comment(s): Quit smoking 1970, smoked for 10 yrs - 1 PPD. Has maybe 2 drinks a day "depending on my mood" Past Drug Use History: None Reported - Past Family History Mother Family Medical History: Cancer Additional Family Medical History / Comment(s): CA: breast, lung Father Family Medical History: AFIB Additional Family Medical History / Comment(s): parkinsons Medications and Allergies Home Medications Medication Instructions Recorded Confirmed Type Omeprazole [PriLOSEC] 20 mg PO BID 10/16/15 02/19/21 History diphenhydrAMINE [Benadryl] 25 mg PO HS PRN 03/24/18 02/19/21 History Collagen Tab 1 tab PO DAILY 02/19/21 02/19/21 History Gabapentin 300 mg PO BID 02/19/21 02/19/21 History Glucosam/Dustin-Msm1/C/José Miguel/Bosw 1 tab PO DAILY 02/19/21 02/19/21 History [Glucosamine-Chondroitin Tablet] Levothyroxine Sodium [Synthroid] 125 mcg PO DAILY 02/19/21 02/19/21 History Magnesium Oxide [Mag-Ox] 250 mg PO DAILY 02/19/21 02/19/21 History Pramipexole Di-HCl [Mirapex] 0.25 - 0.5 mg PO HS 02/19/21 02/19/21 History Solifenacin Succinate 10 mg PO DAILY 02/19/21 02/19/21 History Turmeric Root Extract [Turmeric] 500 mg PO DAILY 02/19/21 02/19/21 History Vitamin B Complex 1 cap PO DAILY 02/19/21 02/19/21 History traMADol HCl [Ultram] 50 mg PO DAILY PRN 02/19/21 02/19/21 History Allergies Allergy/AdvReac Type Severity Reaction Status Date / Time sulfamethoxazole Allergy Unknown Verified 02/19/21 11:57 [From Bactrim] trimethoprim [From Bactrim] Allergy Unknown, Verified 02/19/21 11:57 NOT SURE OF ALLERGY - PER PATIENT STERI STRIPS Allergy RED, ITCHY Uncoded 02/19/21 11:57 Physical Exam Vitals: Vital Signs Temp Pulse Pulse Resp BP BP Pulse Ox 02/20/21 08:00 98.5 F 93 14 108/65 98 02/20/21 02:00 98.8 F 89 16 107/70 92 L 02/19/21 20:00 99.6 F 102 H 16 110/72 92 L 02/19/21 18:25 100.1 F H 105 H 16 125/76 91 L 02/19/21 18:07 102.1 F H 107 H 22 123/67 94 L 02/19/21 17:20 107 H 18 136/66 96 02/19/21 16:00 102 F H 103 H 18 141/72 94 L 02/19/21 13:54 101.7 F H 99 18 111/84 93 L 02/19/21 10:52 102.4 F H 102 H 16 136/64 93 L Intake and Output 02/19/21 02/20/21 02/20/21 22:59 06:59 14:59 Other: Voiding Method Toilet # Voids 1 2 # Bowel Movements 1 Weight 68.039 kg GENERAL DESCRIPTION: An elderly female lying in bed, no distress. No tachypnea or accessory muscle of respiration use. HEENT: Shows Pallor , no scleral icterus. Oral mucous membrane is dry. No pharyngeal erythema or thrush NECK: Trachea central, no thyromegaly. LUNGS: Unlabored breathing. Decreased breath sounds at the base. No wheeze or crackle. HEART: S1, S2, regular rate and rhythm. No loud murmur ABDOMEN: Soft, no tenderness , guarding or rigidity, no organomegaly EXTREMITIES: No edema of feet. SKIN: No rash, no masses palpable. NEUROLOGICAL: The patient is awake, alert, oriented x3, mood and affect normal. no neck rigidity Results CBC & Chem 7: 02/20/21 08:15 02/20/21 08:15 Labs: Abnormal Lab Results - Last 24 Hours (Table) 02/19/21 02/19/21 02/19/21 Range/Units 11:13 11:13 11:13 WBC 14.7 H (3.8-10.6) k/uL Neutrophils # 13.2 H (1.3-7.7) k/uL Lymphocytes # 0.6 L (1.0-4.8) k/uL APTT 21.9 L (22.0-30.0) sec Glucose 108 H (74-99) mg/dL Ur Specific [place] (1.001-1.035) Urine Protein (Negative) CSF Total Protein (12-60) mg/dL 02/19/21 02/19/21 02/20/21 Range/Units 15:06 17:33 08:15 WBC (3.8-10.6) k/uL Neutrophils # 9.0 H (1.3-7.7) k/uL Lymphocytes # 0.5 L (1.0-4.8) k/uL APTT (22.0-30.0) sec Glucose (74-99) mg/dL Ur Specific [place] >1.050 H (1.001-1.035) Urine Protein Trace H (Negative) CSF Total Protein 63 H (12-60) mg/dL 02/20/21 Range/Units 08:15 WBC (3.8-10.6) k/uL Neutrophils # (1.3-7.7) k/uL Lymphocytes # (1.0-4.8) k/uL APTT (22.0-30.0) sec Glucose 120 H (74-99) mg/dL Ur Specific [place] (1.001-1.035) Urine Protein (Negative) CSF Total Protein (12-60) mg/dL Microbiology - Last 24 Hours (Table) 02/19/21 17:33 CSF Gram Stain - Preliminary Cerebral Spinal Fluid CSF Culture - Preliminary Assessment and Plan Assessment: Patient presented to hospital with sepsis in this patient did have a fever elevated white count predominant symptom has been a headache and some nausea with clinic suspicious for her meningeal encephalitis in this patient who did have a lumbar puncture, however glucose normal protein are significantly better and white count normal making to be less likely meningitis encephalitis less likely excluded other source of infection possible pneumonia versus intra- abdominal source (1) Febrile illness, acute Current Visit: Yes Status: Acute Code(s): R50.9 - FEVER, UNSPECIFIED SNOMED Code(s): 632394440 Plan: 1-we will wait for the HSV DNA by PCR completed on the CSF examination 2-obtain CT abdominal pelvis with contrast that will better define lower lobes of the lung and rule out any intra-abdominal pathology 3-acyclovir to continue however discontinue vancomycin and Rocephin and start the patient on Unasyn 3 g every 6 hours while work-up is completed We will follow on clinical condition and cultures to further adjust medication if needed Thank you for this consultation will follow this patient along with you Time with Patient: Greater than 30
[2021-02-20] MEDS: AMPICILLIN-SULBACTAM 3 GM in SODIUM CHLORIDE 0.9% 100 ML IVPB SCH ×2 (17:13→23:53)
--- NOTE | 2021-02-20 17:28 | MR ---
EXAMINATION TYPE: MR brain wo/w con DATE OF EXAM: 02/20/2021 COMPARISON: 12/13/2018 HISTORY: Headache and altered mental status. CONTRAST: Standard multiplanar, multisequence MRI departmental protocol utilizing 7 mL intravenous Gadavist alexis olinium contrast. Diffusion images show no evidence of an acute infarct. The ventricles have fairly normal size. There is no mass effect nor midline shift. There is no sign of intracranial hemorrhage. On the T2 and FLAIR images there are multiple foci of increased signal in the periventricular white matter. These are mo re concentrated in the parietal lobes. The total number is approximately 25 and the largest measures 8 mm in the left parietal lobe. Most of the lesions are less than 5 mm. The brainstem is intact. The cerebellum is intact. The contrast images show no pathologic enhancement. There is normal enhancement of the venous sinuses . There is no evidence of orbital mass. IMPRESSION: White matter high signal foci not significantly different than old exam and could relate to microvasc ular ischemia or demyelinating disease. No evidence of a cortical infarct.
--- NOTE | 2021-02-20 19:05 | CT ---
EXAMINATION TYPE: CT abdomen pelvis w con DATE OF EXAM: 02/20/2021 COMPARISON: 02/08/2021 HISTORY: Diarrhea. Abdominal pain. CT DLP: 1622 mGycm Automated exposure control for dose reduction was used. CONTRAST: Performed with IV Contrast, patient injected with 100 mL of Isovue 300. There is mild subsegmental atelectasis at the lung bases. There is large hiatal hernia. Heart size is normal. There is no pericardial effusion. There is no pleural effusion. There are clips from cholecystectomy. Liver and spleen are intact. There is no evidence of pancreatic mass. The bile ducts are not dilated. The stomach is intact. There is 1 cm cyst in the anterior left lobe of the liver. There is no adrenal mass. Kidneys show sat isfactory contrast opacification. There is no hydronephrosis. Delayed images show normal renal excret ion. There is no retroperitoneal adenopathy. Bladder distends smoothly. There is right inguinal herni a that contains loop of small bowel but no obstruction.. There are numerous diverticula in the sigmoid colon. There is no diverticulitis. There is normal opac ification of the small bowel. There is no sign of a small bowel obstruction. There is suggestion of s ome wall thickening of the hepatic flexure of the colon and the ascending colon which is a change com pared to old exam. There is multilevel posterior fusion surgery in the lumbar spine. There is mild thoracolumbar kyphosi s. There is no significant compression deformity. The bony pelvis is intact. IMPRESSION: Moderate sigmoid diverticulosis without diverticulitis. Unchanged. There is some wall thickening of the right colon that could relate to some colitis that is a change c ompared to recent exam. Right inguinal hernia unchanged.
[2021-02-20] MEDS: PRAMIPEXOLE 0.25 MG TAB PO SCH (19:40)
[2021-02-21] MEDS: traMADol 50 MG TAB PO PRN ×2 (01:45→20:36)
[2021-02-21] MEDS: ACYCLOVIR SODIUM 700 MG in SODIUM CHLORIDE 0.9% 100 ML IVPB SCH ×2 (04:27→13:16)
[2021-02-21] MEDS: ACETAMINOPHEN TAB 325 MG TAB PO PRN (06:04)
[2021-02-21] MEDS: AMPICILLIN-SULBACTAM 3 GM in SODIUM CHLORIDE 0.9% 100 ML IVPB SCH ×3 (06:04→17:22)
[2021-02-21] MEDS: LEVOTHYROXINE 125 MCG TAB PO SCH (06:04)
[2021-02-21] MEDS: SODIUM CHLORIDE 0.9% 1,000 ML IV SCH (06:13)
[2021-02-21] MEDS: TROSPIUM CHLORIDE 20 MG TABLET PO SCH ×2 (08:08→20:32)
[2021-02-21] MEDS: PANTOPRAZOLE 40 MG TABLET PO SCH (08:08)
[2021-02-21] MEDS: FAMOTIDINE 20 MG/2 ML VIAL IV SCH (08:08)
[2021-02-21] MEDS: MAGNESIUM OXIDE 400 MG TAB PO SCH (08:08)
[2021-02-21] MEDS: GABAPENTIN 300 MG CAP PO SCH ×2 (08:08→20:31)
--- NOTE | 2021-02-21 13:12 | P.PN ---
Subjective This is a pleasant 75 years old female with past medical history of hypothyroidism, GERD, osteoarthritis. Presents because of severe headache stati ng it is 10/10 in the frontal across the forehead, felt like pounding and nonspecific the pain wakes her up from sleep earlier morning. Associated with not feeling himself, last that she was playing cards and she was not plain good, usually she once but last night she did not when any. Today she could not find her numbers when using The phone. She looks alert and oriented to time, place and person. She denies cough or chest pain or dyspnea although she feels some chest tightness. Abdominal pain, no nausea vomiting, she has one bout of loose stool. No dysuria On admission she has a fever of 102, saturating 93% on room air. Labs showing leukocytosis of 14.7 K. Risks of CBC, BMP, liver enzymes are unremarkable. Urinalysis is not suspicious for infection. CT of the cervical spine and brain was negative for acute process Chest x-ray showing probable lower lobe atelectasis with hiatal hernia CTA of the brain, no flow-limiting stenosis. Normal [place] [facility] [place] [facility] [place] [facility] [place] 02/20/2021 Patient was admitted yesterday for concern for meningocele colitis given her headache, ringing in the ear and feeling not self with some clumsiness and some activities. Lumbar puncture came back negative. Today she still complaining from headache and ringing in the ear and feeling tired and little lethargic she reports mild improvement. She is also reporting diarrhea from before coming to the hospital. Her fever subsided within discharge antibiotics she is receiving, she is saturating 92-98% on room air. Postop vitals are stable. Her leukocytosis improved down to normal at 10.1 K. Risks of CBC, BMP and liver enzymes still unremarkable. EEG and MRI of the brain were ordered which might be helpful for better evaluation of the intracranial process Continue with normal saline at 75 mL/h Currently she kept on acyclovir, IV vancomycin and Rocephin Case was discussed with ID and neurology team 02/21/2021 Patient headache resolved today. She still complaining of from ringing sound in the ears. No confusion. No weakness or numbness. Patient MRI of the brain showing no acute process. No acute infarction. She showing no epileptic form discharge. No more fever. She is hemodynamically stable. Hercalcitonin was slightly elevated yesterday at 0.14. CT of the abdomen and pelvis showing possible right colitis Input from neurology and infectious disease team is appreciated and reviewed Patient currently is kept and Unasyn and acyclovir, pending HSV PCR Objective - Vital Signs Vital signs: Vital Signs Temp 98.1 F 02/21/21 07:37 Pulse 85 02/21/21 07:37 Resp 16 02/21/21 07:37 BP 111/68 02/21/21 07:37 Pulse Ox 95 02/21/21 07:37 Intake & Output 02/20/21 02/21/21 02/21/21 18:59 06:59 18:59 Other: Voiding Method Toilet Toilet Toilet # Voids 2 2 # Bowel Movements 1 - Exam GENERAL: The patient is alert and oriented x3, not in any acute distress. Well developed, well nourished. HEENT: Pupils are round and equally reacting to light. EOMI. No scleral icterus. No conjunctival pallor. Normocephalic, atraumatic. No pharyngeal erythema. No thyromegaly. CARDIOVASCULAR: S1 and S2 present. No murmurs, rubs, or gallops. PULMONARY: Chest is clear to auscultation, no wheezing or crackles. ABDOMEN: Soft, nontender, nondistended, normoactive bowel sounds. No palpable organomegaly. MUSCULOSKELETAL: No joint swelling or deformity. EXTREMITIES: No cyanosis, clubbing, or pedal edema. NEUROLOGICAL: Gross neurological examination did not reveal any focal deficits. SKIN: No rashes. no petechiae. - Labs CBC & Chem 7: 02/20/21 08:15 02/20/21 08:15 Labs: Abnormal Lab Results - Last 24 Hours (Table) 02/20/21 Range/Units 08:15 Procalcitonin 0.14 H (0.02-0.09) ng/mL Microbiology - Last 24 Hours (Table) 02/19/21 17:33 CSF Gram Stain - Preliminary Cerebral Spinal Fluid CSF Culture - Preliminary 02/19/21 12:06 Blood Culture - Preliminary Blood No Growth after 24 hours 02/19/21 11:13 Blood Culture - Preliminary Blood No Growth after 24 hours Assessment and Plan Assessment: Severe headache with ranging sounding the ears. Improving Possible right sided colitis with Diarrhea. Probable lower lobe atelectasis versus pneumonia hypothyroidism Plan: This is a pleasant 75 years old female who presents with fever of unknown source of infection. Check C. diff. is negative Continue with Unasyn and acyclovir for now of vancomycin pharmacy to dose and ceftriaxone. Neurology and infectious disease services on the case Follow blood culture normal saline at 75 mL/h Labs and medication were reviewed.. Continue same treatment. Continue with symptomatic treatment. Resume home medication. Monitor lytes and vitals. DVT and GI prophylaxis. Further recommendations depends on the clinical course of the patient Prognosis is guarded
[2021-02-21] MEDS ORDERED: VANCOMYCIN TROUGH DUE 1 EACH MISC MISCELLANE ONE (15:00)
--- NOTE | 2021-02-21 16:55 | PN ---
PROGRESS NOTE DATE OF SERVICE: 02/21/2021 REASON FOR FOLLOWUP: Fever. INTERVAL HISTORY: The patient overall fever pattern has improved. No ( ) however, patient had headache, has decreased in intensity. Denies any nausea, vomiting. No chest pain, shortness of breath, abdominal pain. No diarrhea. PHYSICAL EXAMINATION: Blood pressure 106/67, pulse 83, temperature 98.8, she is 95% on room air. GENERAL DESCRIPTION: Is an elderly female up in the room in no distress. RESPIRATORY SYSTEM: Unlabored breathing and is clear to auscultation anteriorly. HEART: S1, S2. Regular rate and rhythm. LAB: HSV DNA by PCR came back negative. Hemoglobin is 13.1, white count 10.1. CT of abdomen and pelvis did not show any intraabdominal pathology. DIAGNOSTIC IMPRESSION AND PLAN: 1. Patient admitted to the hospital with fever, headache with concern for meningitis, encephalitis. CSF findings did show mild elevated protein and no elevated white count. HSV DNA by PCR came back negative. Clinically, not behaving as bacterial encephalitis. There was concern for possible aspiration pneumonitis but with abdominal CT and ( ) came back negative as well. The patient has clinically responded Unasyn, to continue. We will obtain the ( ) serology on the CSF. 2. ( ) and continue supportive care. MMODL / IJN: [id number] /
--- NOTE | 2021-02-21 20:13 | P.PN ---
Subjective Progress Note Date: 02/21/21 She was seen at bedside and she feels about the same today compared to yesterday. Denies any worsening of the headache, nausea or vomiting, denies any focal weakness, denies any visual disturbance. Patient has been afebrile recently for more than 24 hours area Objective - Vital Signs Vital signs: Vital Signs Temp 98 F 02/21/21 14:00 Pulse 86 02/21/21 14:00 Resp 16 02/21/21 14:00 BP 106/67 02/21/21 14:00 Pulse Ox 95 02/21/21 14:00 Intake & Output 02/21/21 02/21/21 02/22/21 06:59 18:59 06:59 Intake Total 1080 Balance 1080 Intake: Oral 1080 Other: Voiding Method Toilet Toilet # Voids 2 3 - Exam GENERAL: The patient is lying in bed and is in milld acute distress. HENT: Negative for Brudzinksi or Kernig sign. NEUROLOGICAL: Higher mental function: The patient is awake, alert, oriented to self, place and time. Patient is following commands. No aphasia and no neglect. Cranial nerves: The pupils are round, equal and reactive to light and accommodation. Visual meehan are full to confrontation throughout. Extraocular movement is intact no nystagmus is noted. Facial sensation is normal to touch throughout. The facial strength is normal throughout. Hearing is normal bilaterally to hand rub. Tongue is midline and moved [id number] without any difficulty. No dysarthria is noted. Shoulder shrug is normal bilaterally. Motor: Gait is deferred. The strength is 5 over 5 throughout. Normal tone and bulk. Cerebellum: Normal finger to nose heel to pandey bilaterally. Sensation: Sensation is normal to touch throughout. Reflexes (right/left): 2+ throughout upper while lowers are 1+. Plantars are downgoing bilaterally. WORK-UP: CT head is reported as Minimal chronic appearing tessie-ventricular white matter ischemic change. No acute intracranial process. CTA head and neck: No flow-limiting stenosis bilateral carotid bifurcations. Neck vessels are tortuous. Normal [place]. MRI of the brain with and without: White matter high foci not significantly different than old exam and could relate to microvascular ischemia or edema disease. No evidence of the cortical infarct. EEG on 02/20/2021 is normal. There are no focal slowing, epileptiform discharges or seizure in the EEG. Chest x-rays reported as probable lower lobe atelectasis with hiatal partial intrathoracic stomach, patient is rotated Blood cultures no growth. Urinalysis is negative for urinary tract infection. CSF: Is clear, colorless, 0 red blood cell, 1 nucleated cells, glucose of 59 and the 14 is 63 the protein is just slightly elevated more than normal (normal is 12-60). No POC glucose was done around time of LP. The opening pressure is 13 mm water which is not elevated. CSF Gram stain shows no organisms seen. HSV 1 and 2 PCR is nondetected. Virus analysis panel of CSF is not detected. Influenza a and B PCR is nondetected. C. diff TIA is negative. - Labs CBC & Chem 7: 02/20/21 08:15 02/20/21 08:15 Labs: Microbiology - Last 24 Hours (Table) 02/19/21 12:06 Blood Culture - Preliminary Blood No Growth after 48 hours 02/19/21 11:13 Blood Culture - Preliminary Blood No Growth after 48 hours 02/19/21 17:33 CSF Gram Stain - Preliminary Cerebral Spinal Fluid CSF Culture - Preliminary Assessment and Plan Assessment: * New onset Cephalgia with fever and leukocytosis and some confusion: Unknown cause. There was suspion for meningoencephalitis CSF is negative and HSV1/2 are negative. I.D. feels possible aspiration pneumonitis---she has been afebrile lately. * Chronic lower back pain s/p surgery with jaqui placed (5 years ago) * Chronic neck pain * Hypothyroidism * Osteoarthritis * GERD Plan: * On Unasyn and will defer antibiotic regimen to the ID team. * Infection disease team are on board. * The patient continues to have fevers down the line possibly consider repeating the lumbar puncture, MRI the brain and possibly consider MRI of the cervical spine. The plan is discussed with the patient and her nurse. Will continue to follow Chepe Siu M.D. Neuro-hospitalist Time with Patient: Less than 30
[2021-02-21] MEDS: PRAMIPEXOLE 0.25 MG TAB PO SCH (20:31)
[2021-02-21] MEDS: FAMOTIDINE 20 MG TAB PO SCH (20:31)
[2021-02-22] MEDS: AMPICILLIN-SULBACTAM 3 GM in SODIUM CHLORIDE 0.9% 100 ML IVPB SCH ×5 (00:16→23:15)
[2021-02-22] MEDS: SODIUM CHLORIDE 0.9% 1,000 ML IV SCH ×3 (00:22→20:07)
[2021-02-22] MEDS: LEVOTHYROXINE 125 MCG TAB PO SCH (05:43)
[2021-02-22] MEDS: ONDANSETRON 4 MG/2 ML VIAL IVP PRN (08:48)
[2021-02-22] MEDS: GABAPENTIN 300 MG CAP PO SCH ×2 (11:01→20:07)
[2021-02-22] MEDS: PANTOPRAZOLE 40 MG TABLET PO SCH (11:01)
[2021-02-22] MEDS: TROSPIUM CHLORIDE 20 MG TABLET PO SCH ×2 (11:01→20:07)
[2021-02-22] MEDS: MAGNESIUM OXIDE 400 MG TAB PO SCH (11:01)
[2021-02-22] MEDS: FAMOTIDINE 20 MG TAB PO SCH ×2 (11:01→20:07)
[2021-02-22] MEDS: ACETAMINOPHEN TAB 325 MG TAB PO PRN ×2 (11:02→23:14)
[2021-02-22 11:50] LABS: VDRL, Qualitative CSF Nonreactive (Nonreactive)
--- NOTE | 2021-02-22 13:54 | P.PN ---
Subjective This is a pleasant 75 years old female with past medical history of hypothyroidism, GERD, osteoarthritis. Presents because of severe headache stati ng it is 10/10 in the frontal across the forehead, felt like pounding and nonspecific the pain wakes her up from sleep earlier morning. Associated with not feeling himself, last that she was playing cards and she was not plain good, usually she once but last night she did not when any. Today she could not find her numbers when using The phone. She looks alert and oriented to time, place and person. She denies cough or chest pain or dyspnea although she feels some chest tightness. Abdominal pain, no nausea vomiting, she has one bout of loose stool. No dysuria On admission she has a fever of 102, saturating 93% on room air. Labs showing leukocytosis of 14.7 K. Risks of CBC, BMP, liver enzymes are unremarkable. Urinalysis is not suspicious for infection. CT of the cervical spine and brain was negative for acute process Chest x-ray showing probable lower lobe atelectasis with hiatal hernia CTA of the brain, no flow-limiting stenosis. Normal [place] 02/20/2021 Patient was admitted yesterday for concern for meningocele colitis given her headache, ringing in the ear and feeling not self with some clumsiness and some activities. Lumbar puncture came back negative. Today she still complaining from headache and ringing in the ear and feeling tired and little lethargic she reports mild improvement. She is also reporting diarrhea from before coming to the hospital. Her fever subsided within discharge antibiotics she is receiving, she is saturating 92-98% on room air. Postop vitals are stable. Her leukocytosis improved down to normal at 10.1 K. Risks of CBC, BMP and liver enzymes still unremarkable. EEG and MRI of the brain were ordered which might be helpful for better evaluation of the intracranial process Continue with normal saline at 75 mL/h Currently she kept on acyclovir, IV vancomycin and Rocephin Case was discussed with ID and neurology team 02/21/2021 Patient headache resolved today. She still complaining of from ringing sound in the ears. No confusion. No weakness or numbness. Patient MRI of the brain showing no acute process. No acute infarction. She showing no epileptic form discharge. No more fever. She is hemodynamically stable. Hercalcitonin was slightly elevated yesterday at 0.14. CT of the abdomen and pelvis showing possible right colitis Input from neurology and infectious disease team is appreciated and reviewed Patient currently is kept and Unasyn and acyclovir, pending HSV PCR 02/22/2021 Patient has no headache, she still have ringing in the brain and feel not herself. Her HSV and CSF came back negative. And acyclovir was discontinued, currently she remains on Unasyn. CT of the abdomen was suspicious for right-sided colitis I discussed with the neurologist service because of persistent neurological symptoms, then repeat lumbar puncture versus MRI of the brain and cervical spine would be considered Objective - Vital Signs Vital signs: Vital Signs Temp 98.4 F 02/22/21 07:43 Pulse 77 02/22/21 07:43 Resp 16 02/22/21 07:43 BP 121/76 02/22/21 07:43 Pulse Ox 97 02/22/21 07:43 Intake & Output 02/21/21 02/22/21 02/22/21 18:59 06:59 18:59 Intake Total 1080 480 Balance 1080 480 Intake: Oral 1080 480 Other: Voiding Method Toilet Toilet Toilet # Voids 3 1 - Exam GENERAL: The patient is alert and oriented x3, not in any acute distress. Well developed, well nourished. HEENT: Pupils are round and equally reacting to light. EOMI. No scleral icterus. No conjunctival pallor. Normocephalic, atraumatic. No pharyngeal erythema. No thyromegaly. CARDIOVASCULAR: S1 and S2 present. No murmurs, rubs, or gallops. PULMONARY: Chest is clear to auscultation, no wheezing or crackles. ABDOMEN: Soft, nontender, nondistended, normoactive bowel sounds. No palpable organomegaly. MUSCULOSKELETAL: No joint swelling or deformity. EXTREMITIES: No cyanosis, clubbing, or pedal edema. NEUROLOGICAL: Gross neurological examination did not reveal any focal deficits. SKIN: No rashes. no petechiae. - Labs CBC & Chem 7: 02/20/21 08:15 02/20/21 08:15 Labs: Microbiology - Last 24 Hours (Table) 02/19/21 11:13 Blood Culture - Preliminary Blood No Growth after 72 hours 02/19/21 17:33 CSF Gram Stain - Preliminary Cerebral Spinal Fluid CSF Culture - Preliminary 02/19/21 12:06 Blood Culture - Preliminary Blood No Growth after 48 hours Assessment and Plan Assessment: Severe headache, improving. with ranging sounding the ears. Possible right sided colitis with Diarrhea. Probable lower lobe atelectasis versus pneumonia hypothyroidism Plan: This is a pleasant 75 years old female who presents with fever of unknown source of infection. Continue with Unasyn Neurology and infectious disease services on the case Follow blood culture Consider further neurological workup per nephrology service normal saline at 75 mL/h Labs and medication were reviewed.. Continue same treatment. Continue with symptomatic treatment. Resume home medication. Monitor lytes and vitals. DVT and GI prophylaxis. Further recommendations depends on the clinical course of the patient Prognosis is guarded
--- NOTE | 2021-02-22 14:21 | P.PN ---
Subjective Progress Note Date: 02/22/21 She was seen at bedside and she feels her headache is improving. She continues to have reviewed in the area. She feels her brain is foggy. Denies of any focal weakness, numbness, photophobia or phonophobia. She denies of any nausea or vomiting. Objective - Vital Signs Vital signs: Vital Signs Temp 98.4 F 02/22/21 07:43 Pulse 77 02/22/21 07:43 Resp 16 02/22/21 07:43 BP 121/76 02/22/21 07:43 Pulse Ox 97 02/22/21 07:43 Intake & Output 02/21/21 02/22/21 02/22/21 18:59 06:59 18:59 Intake Total 1080 480 Balance 1080 480 Intake: Oral 1080 480 Other: Voiding Method Toilet Toilet Toilet # Voids 3 1 - Exam GENERAL: The patient is lying in bed and is in milld acute distress. HENT: Negative for Brudzinksi or Kernig sign. NEUROLOGICAL: Higher mental function: The patient is awake, alert, oriented to self, place and time. Patient is following commands. No aphasia and no neglect. Cranial nerves: The pupils are round, equal and reactive to light and accommodation. Visual meehan are full to confrontation throughout. Extraocular movement is intact no nystagmus is noted. Facial sensation is normal to touch throughout. The facial strength is normal throughout. Hearing is normal bilaterally to hand rub. Tongue is midline and moved [id number] without any difficulty. No dysarthria is noted. Shoulder shrug is normal bilaterally. Motor: Gait is deferred. The strength is 5 over 5 throughout. Normal tone and bulk. Cerebellum: Normal finger to nose heel to pandey bilaterally. Sensation: Sensation is normal to touch throughout. Reflexes (right/left): 2+ throughout upper while lowers are 1+. Plantars are downgoing bilaterally. WORK-UP: CT head is reported as Minimal chronic appearing tessie-ventricular white matter ischemic change. No acute intracranial process. CTA head and neck: No flow-limiting stenosis bilateral carotid bifurcations. Neck vessels are tortuous. Normal [place]. MRI of the brain with and without: White matter high foci not significantly different than old exam and could relate to microvascular ischemia or edema disease. No evidence of the cortical infarct. EEG on 02/20/2021 is normal. There are no focal slowing, epileptiform discharges or seizure in the EEG. Chest x-rays reported as probable lower lobe atelectasis with hiatal partial intrathoracic stomach, patient is rotated Blood cultures no growth. Urinalysis is negative for urinary tract infection. CSF: Is clear, colorless, 0 red blood cell, 1 nucleated cells, glucose of 59 and the 14 is 63 the protein is just slightly elevated more than normal (normal is 12-60). No POC glucose was done around time of LP. The opening pressure is 13 mm water which is not elevated. CSF Gram stain shows no organisms seen. HSV 1 and 2 PCR is nondetected. CSF VDRL nonreactive. Virus analysis panel of CSF is not detected. Influenza a and B PCR is nondetected. C. diff TIA is negative. - Labs CBC & Chem 7: 02/20/21 08:15 02/20/21 08:15 Labs: Microbiology - Last 24 Hours (Table) 02/19/21 12:06 Blood Culture - Preliminary Blood No Growth after 72 hours 02/19/21 11:13 Blood Culture - Preliminary Blood No Growth after 72 hours 02/19/21 17:33 CSF Gram Stain - Preliminary Cerebral Spinal Fluid CSF Culture - Preliminary Assessment and Plan Assessment: * New onset Cephalgia with fever and leukocytosis and some confusion and ringing of both ears: Unknown cause. There was suspion for meningoencephalitis but CSF is negative and HSV1/2 are negative. I.D. feels possible aspiration p neumonitis---she has been afebrile lately but continues to have ringing of both ears and feels her head is foggy. * Chronic lower back pain s/p surgery with jaqui placed (5 years ago) * Chronic neck pain * Hypothyroidism * Osteoarthritis * GERD Plan: * Repeat the MRI of the brain as well as MRI of the cervical spine with and without. * On Unasyn and will defer antibiotic regimen to the ID team. * Infection disease team are on board. The plan is discussed with the patient and her nurse. Will continue to follow Chepe Siu M.D. Neuro-hospitalist Time with Patient: Less than 30
--- NOTE | 2021-02-22 16:09 | CDI ---
Documentation Clarification Form Date: 02/22/2021 03:40:13 PM From: Ashley Stark RN, CCDS Admit Date: 02/19/2021 02:25:00 PM Patient Name: Christie Loera Visit Number: [id number] Discharge Date: ATTENTION: The Clinical Documentation Specialists (CDI) and [facility] Coding Staff appreciate your assistance in clarifying documentation. Please respond to the clarification below the line at the bottom and electronically sign. The CDI & [facility] Coding staff will review the response and follow-up if needed. Please note: Queries are made part of the Legal Health Record. If you have any questions, please contact the author of this message via ITS. Dr. Torres E Sheet The patient presented with altered mental status, confusion, febrile, with leukocytosis. Additional clarification regarding the etiology/cause of the clinical indicators is requested. 02/19 ED clinical impression: Pneumonia, Encephalopathy acute febrile illness acute, Leukocytosis 02/01 ID consult: Patient admitted to hospital with sepsis in this patient did have a fever elevated white count predominant symptom has been a headache and some nausea. Source of infection possible pneumonia versus intra-abdominal source. History/Risk Factors: GERD, Thyroid disorder Clinical Indicators: 75-year-old female present with febrile illness, awake, alert oriented x2 in ED. 02/19 WBC: 14.7 02/19 Chest XR: Review per ED: Evidence of atelectasis, pneumonia considered. 02/19 Blood cultures: Pending 02/19 Vital signs: 136/64 102 16 102.4, 93 % RA, 111/84 99 18 101.7 93 % RA Treatment: Vancomycin 1,500 IVPB Once then 1,250 IV Q 16 (DC) Rocepnin 2 GM IVPB Q 12 HRS (02/19) Unasyn 3 GM IVPB Q 6 HRS Neurological assessment Q4 HRS In your professional opinion, please clarify if these findings signify one of the following conditions: [ ] Sepsis POA [ ] Sepsis ruled out [ ] SIRS, without underlying infectious process [ ] Other, please specify [ ] Unable to determine SIRS Criteria: 2 or more of the following may indicate SIRS -Temperature < 96.8F (36C) or > 101.0F (38.3C) -Heart Rate > 90 bpm -Respiratory Rate > 20 breaths/min or PaCO2 < 32 mmHg -White Blood Cell Count > 12,000 or < 4,000 cells/mm3 or > 10% bands (Template Last Reviewed: September 2020) Sepsis POA, pt had fever and leukocytosis MTDD
--- NOTE | 2021-02-22 17:20 | PN ---
PROGRESS NOTE DATE OF SERVICE: 02/22/2021. REASON FOR FOLLOWUP: Fever. INTERVAL HISTORY: The patient is currently afebrile. No fever has been recorded in the last 72 hours. The patient is feeling better. She is complaining of some mild cloudiness but no headache. No nausea, no vomiting. No chest pain, shortness of breath or cough. No abdominal pain or diarrhea. PHYSICAL EXAMINATION: Blood pressure 115/69, pulse of 81, temperature 98.9. She is 96% on room air. General description is an elderly female lying in bed in no distress. Respiratory system: Unlabored breathing, clear to auscultation anteriorly . Heart S1, S2. Regular rate and rhythm. Abdomen soft, no tenderness. LABS: No new labs have been obtained today. Culture has been negative so far. DIAGNOSTIC IMPRESSION AND PLAN: 1. Patient admitted to hospital with fever and headache with concern for meningitis encephalitis. She did have mild elevated protein in the CSF, however, the rest of the testing came back negative including HSV DNA by PCR. Serology has been requested on CSF. However, treatment is mostly supportive. 2. Patient with possible aspiration pneumonitis and is covered with Unasyn. Fever has resolved. Plan is to continue with Unasyn and transition to oral Augmentin on discharge. She did have multiple questions, those were answered. MMODL / IJN: [id number] /
[2021-02-22] MEDS: PRAMIPEXOLE 0.25 MG TAB PO SCH (20:07)
--- NOTE | 2021-02-23 01:42 | MR ---
EXAMINATION TYPE: MR brain/cspine wo/w DATE OF EXAM: 02/22/2021 COMPARISON: 02/20/2021 HISTORY: Headaches and neck pain. CONTRAST: Standard multiplanar, multisequence MRI departmental protocol utilizing 7 mL intravenous Gadavist alexis olinium contrast. Diffusion images show no evidence of an acute infarct. Ventricles have normal size. There is no mass effect nor midline shift. There is no evidence of intracranial hemorrhage. There are numerous white m atter high signal foci in the periventricular white matter. These are seen on the T2 and FLAIR images in the total number is approximately 25. The largest measures 7 mm. Most of these are less than 4 mm . The brainstem is intact. The corpus callosum is intact. Sella turcica appears normal. There is some straightening of the cervical spine. There is multilevel cervical disc space narrowing with spurring of the endplates. The spinal canal measures 7 mm at C6-7 and measures 6 mm at C3-4. Cer vical cord shows no definite edema. I see no focal bone destruction. There is no cervical compression fracture. Contrast images show no pathologic enhancement. There is normal enhancement of the venous sinuses. Th ere is no pathologic enhancement in the cervical spine. 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 This appears not significantly different than old MR scan of 12/20/2018. Multiple white matter high signal foci suggestive of chronic small vessel ischemia or demyelinating d isease which is not significantly different than recent exam of 02/20/2021. White matter disease not s ignificantly different than 12/13/2018 exam.
[2021-02-23] MEDS: AMPICILLIN-SULBACTAM 3 GM in SODIUM CHLORIDE 0.9% 100 ML IVPB SCH ×2 (06:01→11:48)
[2021-02-23] MEDS: LEVOTHYROXINE 125 MCG TAB PO SCH (06:01)
[2021-02-23] MEDS: MAGNESIUM OXIDE 400 MG TAB PO SCH (08:20)
[2021-02-23] MEDS: TROSPIUM CHLORIDE 20 MG TABLET PO SCH (08:21)
[2021-02-23] MEDS: GABAPENTIN 300 MG CAP PO SCH (08:21)
[2021-02-23] MEDS: PANTOPRAZOLE 40 MG TABLET PO SCH (08:21)
[2021-02-23] MEDS: FAMOTIDINE 20 MG TAB PO SCH (08:21)
[2021-02-23 08:26] VITALS: BP 135/85; PULSE 82; RESP 16; TEMP 98
[2021-02-23] MEDS: SODIUM CHLORIDE 0.9% 1,000 ML IV SCH (11:49)
--- NOTE | 2021-02-23 21:35 | P.DS ---
Providers Date of admission: 02/19/21 14:25 Attending physician: Brian Sanchez MD Consults: 02/19/21 14:19 Consult Physician Urgent Consulting Provider: Chepe Siu Consult Reason/Comments: possible meningoencephalitis Do you want consulting provider notified?: Yes Consult Physician Urgent Consulting Provider: Christian Alex Consult Reason/Comments: meningioencephalitis Do you want consulting provider notified?: Yes 02/19/21 15:18 Consult to Anesthesia Stat Consulting Provider: Anesthesia,Services Consult Reason/Comments: lumbar puncture Primary care physician: Jolie Mccann [facility] Course: Diagnoses: Sepsis secondary to right-sided colitis, related to recent failed outpatient colonoscopy with Dr. Mccann about one week prior to hospitalization Severe headache, improving. with ranging sounding the ears. Improved except for the tinnitus, patient referred to outpatient ENT Probable lower lobe atelectasis . pneumonia is felt less likely hypothyroidism Hospital course: This is a pleasant 75 years old female with past medical history of hypothyroidism, GERD, osteoarthritis. Presents because of severe headache stating it is 10/10 in the frontal across the forehead, Associated with not feeling himself, and drinking sounds in both ears for example tinnitus, her presentation was highly suspicious for Alonso encephalitis, however extensive urological workup was negative including CT of the brain, lumbar puncture, MRI of the brain and the cervical spine. Also patient was complaining of from diarrhea with no abdominal pain CT of the abdomen shows right-sided colitis. Patient states that [address] 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 Today she was so eager to be discharged and she called me twice and through the nurse asking to discharge her stating that she improved and feeling fine. We contacted neurology and infectious disease services HER FOR DISCHARGE. recommendation of ID team patient can be discharged on Augmentin for 7 days Problems and management plan were discussed with the patient and he verbalized understanding and acceptance Patient was found stable and can be discharged home however he needs follow-up as an outpatient. Patient was instructed to follow up with PCP Jolie Ferreira within one week and patient agrees Also patient was instructed to follow up with her surgeon Christian Ferreira in one week Also Dr. Alex from ID team wanted to see her in one week, patient informed and she agrees to make appointment Was instructed to follow up with a neurologist Dr. Escobar in 1-2 weeks and she agrees Also was instructed to follow up with Dr. David Gilliland from ENT in 1-2 weeks and she agrees to call and make her appointments. Upon this could not be made by staff because it is weakened Physical exam Gen: patient is a AAOx3, no distress CVS: S1-S2, RRR, no murmur Lungs: B/L CTA, no wheezing Abdomen: soft, no distention, no tenderness, positive bowel sounds Extremity: no leg edema or induration Neurology cranial nerves are grossly intact, strength 5/5, sensation is intact. Meningeal signs are absent Time spent more than 35 minutes Patient Condition at Discharge: Fair Plan - Discharge Summary Discharge Rx Participant: No New Discharge Prescriptions: New Amoxicillin/Potassium Clav [Augmentin 875-125 Tablet] 1 tab PO Q12HR 7 Days #14 tab Continue Omeprazole [PriLOSEC] 20 mg PO BID diphenhydrAMINE [Benadryl] 25 mg PO HS PRN PRN Reason: insomnia/itching Collagen Tab 1 tab PO DAILY Levothyroxine Sodium [Synthroid] 125 mcg PO DAILY Solifenacin Succinate 10 mg PO DAILY Turmeric Root Extract [Turmeric] 500 mg PO DAILY Vitamin B Complex 1 cap PO DAILY Gabapentin 300 mg PO BID Glucosam/Dustin-Msm1/C/José Miguel/Bosw [Glucosamine-Chondroitin Tablet] 1 tab PO DAILY Magnesium Oxide [Mag-Ox] 250 mg PO DAILY Pramipexole Di-HCl [Mirapex] 0.25 - 0.5 mg PO HS traMADol HCl [Ultram] 50 mg PO DAILY PRN PRN Reason: Pain Discharge Medication List Omeprazole [PriLOSEC] 20 mg PO BID 10/16/15 [History] diphenhydrAMINE [Benadryl] 25 mg PO HS PRN 03/24/18 [History] Collagen Tab 1 tab PO DAILY 02/19/21 [History] Gabapentin 300 mg PO BID 02/19/21 [History] Glucosam/Dustin-Msm1/C/José Miguel/Bosw [Glucosamine-Chondroitin Tablet] 1 tab PO DAILY 02/19/21 [History] Levothyroxine Sodium [Synthroid] 125 mcg PO DAILY 02/19/21 [History] Magnesium Oxide [Mag-Ox] 250 mg PO DAILY 02/19/21 [History] Pramipexole Di-HCl [Mirapex] 0.25 - 0.5 mg PO HS 02/19/21 [History] Solifenacin Succinate 10 mg PO DAILY 02/19/21 [History] Turmeric Root Extract [Turmeric] 500 mg PO DAILY 02/19/21 [History] Vitamin B Complex 1 cap PO DAILY 02/19/21 [History] traMADol HCl [Ultram] 50 mg PO DAILY PRN 02/19/21 [History] Amoxicillin/Potassium Clav [Augmentin 875-125 Tablet] 1 tab PO Q12HR 7 Days #14 tab 02/23/21 [Rx] Follow up Appointment(s)/Referral(s): Christian Mccann MD [Medical Doctor] - 2 Weeks (we recommend to do colonscopy with your doctor ) Paul Miller DO [Doctor of Osteopathic Medicine] - 2 Weeks (ENT ) Jolie Mccann MD [Primary Care Provider] - 1-2 days Sandra Escobar MD [REFERRING] - 2 Weeks Christian Alex MD [STAFF PHYSICIAN] - 1 Week Patient Instructions/Handouts: Viral Pneumonia (GEN) Activity/Diet/Wound Care/Special Instructions: heart healthy diet activity is limited till you see your doctor Discharge Disposition: HOME SELF-CARE
--- NOTE | 2021-02-23 22:02 | P.PN ---
Progress Note - Text Progress Note Date: 02/23/21 REASON FOR FOLLOWUP: Fever. INTERVAL HISTORY: The patient remains to be afebrile. The patient is feeling better. She is complaining of some mild cloudiness but no headache. No nausea, no vomiting. No chest pain, shortness of breath or cough. No abdominal pain or diarrhea. PHYSICAL EXAMINATION: Blood pressure 110/60, pulse of 80, temperature 98.9. She is 96% on room air. General description is an elderly female lying in bed in no distress. Respiratory system: Unlabored breathing, clear to auscultation anteriorly . Heart S1, S2. Regular rate and rhythm. Abdomen soft, no tenderness. LABS: Culture has been negative so far. DIAGNOSTIC IMPRESSION AND PLAN: 1. Patient admitted to hospital with fever and headache with concern for meningitis encephalitis. She did have mild elevated protein in the CSF, however, the rest of the testing came back negative including HSV DNA by PCR. Serology for westnile virus has been requested on CSF. However, treatment is mostly supportive. 2. Patient with possible aspiration pneumonitis and is covered with Unasyn. Fever has resolved. Plan is finish therapy with oral Augmentin on discharge.
== END 2021-02-23 15:32 | disposition home or self-care (01) | DRG 862 ==
LOC: EC 10:40 → 4SSUR 14:25
PROVIDERS: ADMIT Internal Medicine; ATTEND Internal Medicine
DX: T81.44XA Sepsis following a procedure, initial encounter (principal); G04.90 Encephalitis and encephalomyelitis, unspecified; J98.11 Atelectasis; K21.9 Gastro-esophageal reflux disease without esophagitis; E03.9 Hypothyroidism, unspecified; M19.90 Unspecified osteoarthritis, unspecified site; K44.9 Diaphragmatic hernia without obstruction or gangrene; Z87.891 Personal history of nicotine dependence; R51.9 Headache, unspecified; K52.9 Noninfective gastroenteritis and colitis, unspecified; Y83.8 Other surgical procedures as the cause of abnormal reaction of the patient, or of later complication, without mention of misadventure at the time of the procedure; H93.19 Tinnitus, unspecified ear; Z79.890 Hormone replacement therapy; Z20.822 Contact with and (suspected) exposure to COVID-19; Z79.899 Other long term (current) drug therapy; G89.29 Other chronic pain; Z82.0 Family history of epilepsy and other diseases of the nervous system; Z90.710 Acquired absence of both cervix and uterus; G25.81 Restless legs syndrome; F41.9 Anxiety disorder, unspecified; Z96.651 Presence of right artificial knee joint
CPT/HCPCS: 36415; 70450; 70496; 70498; 70553; 71046; 72156; 74177; 80053; 81003; 82550; 82945; 83735; 83916; 84145; 84157; 84484; 85025; 85610; 85730; 86592; 87040; 87070; 87205; 87252; 87324; 87496; 87498; 87529; 87636; 87798; 89050; 93005; 95819; 96374; 99285

== ENCOUNTER → 2021-10-10 | Outpatient (CLI) | payer MEDICARE ==
--- NOTE | 2021-10-10 11:18 | P.CON ---
Consult Note - . Consult date: 10/10/21 Assessment/Plan:: HISTORY OF PRESENT ILLNESS: 76 yr old female as a referral from Dr. Smith presents today for neck pain due to bilateral neuroforaminal stenoses for evaluation. Patient states her neck pain is 7 out of 10 intensity, dull, achy, constant in the middle and lower aspects of her cervical spine with radiation of pain greater on the left paraspinal muscles than the right. Pain is provoked with palpation, extension, lateral flexion or lifting of the upper extremities. Pain is relieved with medications, injections years ago with Dr. Smith, ice and heat on an as-needed basis, decreased limited activity, physical therapy which she will start 10/16/21, home daily stretching regimen, use of a cane and walker for assisted ambulation, repositioning, massage and rest. PMH: HTN, OA, GERD, hypothyroidism, neuropathy, obesity, Iron Deficiency Anemia PSH: Appendecytomy, Tponsillectomy, Cholescystectomy, BL CTS, BL TKA, BL RCT Repair, Lumbar Laminectomy with Decompression, R Total Shoulder, Hysterectomy SH: Former Tobacco User. Frequent ETOH Use. No illicit drug use. FH: +HTN All: See list Meds: See list REVIEW OF ORGAN SYSTEMS: CONSTITUTIONAL: No fevers or chills. No recent weight loss. HEENT: No visual acuity loss, eye pain, difficulties with hearing. No nosebleeds. No difficulty swallowing. RESPIRATORY: Denies any troubles with breathing or dyspnea on exertion. CARDIOVASCULAR: Denies any chest pain, palpitations, or recent heart attacks. GASTROINTESTINAL: Denies fatty food intolerance. Has change in bowel habits and gas bloat. GENITOURINARY: Denies any blood in urine. Has increased urinary frequency. NEUROLOGICAL: + numbness and tingling along the distal extremities. No seizure disorders or headaches. MUSCULOSKELETAL: + back pain SKIN: No skin cancer. No rash. PSYCHIATRIC: Denies current depression or suicidal thoughts. ENDOCRINE: Denies current thyroid disorders. Denies any blood sugar glucose intolerance. HEME/LYMPHATIC: Denies any lumps and bumps around the neck. History of deep venous thrombosis. ALLERGY/IMMUNOLOGY: No immunoglobulin therapy. No immune deficiencies. BREAST: Denies current breast lumps, pain or nipple discharge. Physical Examinations : Constitutional : Cooperative , not in acute distress . HEENT: Neck supple. No Lymphadenopathy. Normal thyroid size . Eyes no ptosis , no icterus, no photophobia . Hearing intact. Normal oropharynx. No Thrush. Respiratory : Chest clear to auscultations bilaterally. No wheezing. No rhonchi. Cardiovascular : Regular rate and rhythm , S1 / S2. No S3 . No S4. Gastrointestinal : Abdomen soft. No tenderness. Bowel sounds x 4. No organomegaly . Genitourinary : Deferred. Neurologic : Cranial nerve II to XII intact. No focal neurological deficits. Psychiatric : alert & oriented x 3. Matching mood & appropriate affect. Judgment & insight intact. Lymphatic No Lymphadenopathy. Musculoskeletal : Cervical Spine Motor strength in the deltoid and biceps: Normal right side. Normal Left side Motor strength biceps and the wrist extensors: Normal right side . Normal left side Motor strength in the triceps muscle: Normal right side. Normal left side Deep tendon reflexes: Normal at the biceps. Normal at Brachioradialis. Normal at triceps Cervical facet loading test: positive bilaterally over C4-C5, C5-C6 Spurling test: positive bilaterally Neck distraction test: positive bilaterally Venita sign: positive bilaterally Lumbar spine Motor strength lower extremities ,thigh and legs 5/5 Right side , 5/5 Left side Deep tendon reflexes : Normal Knee Jerk. Normal Ankle Jerk Vertebral body tenderness over Lumbar facet Loading Test: positive Right / positive Left Range of motion of the lumbar spine Flexion 30 degrees, extension 10 degrees Straight Leg Raise test: Left/ Right positive at degree Patricio test: positive right / positive left. Severe tenderness over the Sacroiliac joint on the Right / Left sides Gaenslen test: positive bilaterally Seated flexion test: positive bilaterally. Imaging: MRI of the cervical spine without contrast from 09/26/18 reviewed. Assessment/ Plan : Recommendation of bilateral RFA C3-C5. Risks, benefits of procedure discussed and patient verbalized understanding. Denies aspirin or anti- coagulant use. Denies medical history of diabetes mellitus All questions answered. I have spent greater than 50 minutes on patient care today. Dr Johnston was available by phone for the evaluation of this patient. The time was used to review the medical records including relevant urine studies and Prescription history (MAPs), review of the available imaging, evaluation and examination of the patient, coordination of care with the medical staff and if applicable referring physicians, as well as creation of the medical record PQRS Measure Charge Sheet PQRS Narrative: Smoking Status Former smoker Home Medications: Ambulatory Orders Omeprazole [PriLOSEC] 20 mg PO BID 10/16/15 diphenhydrAMINE [Benadryl] 25 mg PO HS PRN 03/24/18 Collagen Tab 1 tab PO DAILY 02/19/21 Gabapentin 300 mg PO BID 02/19/21 Glucosam/Dustin-Msm1/C/José Miguel/Bosw [Glucosamine-Chondroitin Tablet] 1 tab PO DAILY 02/19/21 Levothyroxine Sodium [Synthroid] 125 mcg PO DAILY 02/19/21 Magnesium Oxide [Mag-Ox] 250 mg PO DAILY 02/19/21 Pramipexole Di-HCl [Mirapex] 0.25 - 0.5 mg PO HS 02/19/21 Solifenacin Succinate 10 mg PO DAILY 02/19/21 Turmeric Root Extract [Turmeric] 500 mg PO DAILY 02/19/21 Vitamin B Complex 1 cap PO DAILY 02/19/21 traMADol HCl [Ultram] 50 mg PO DAILY PRN 02/19/21 Amoxicillin/Potassium Clav [Augmentin 875-125 Tablet] 1 tab PO Q12HR 7 Days #14 tab 02/23/21
[2021-10-10 16:06] VITALS: BP 155/69; PULSE 80; RESP 18
== END ==
LOC: PNWHC3 09:53
PROVIDERS: ATTEND Physician Assistant Medical
DX: M48.02 Spinal stenosis, cervical region (principal); I10 Essential (primary) hypertension; M19.90 Unspecified osteoarthritis, unspecified site; E03.9 Hypothyroidism, unspecified; E66.9 Obesity, unspecified; K21.9 Gastro-esophageal reflux disease without esophagitis; Z79.890 Hormone replacement therapy; Z87.891 Personal history of nicotine dependence; Z88.2 Allergy status to sulfonamides; Z91.048 Other nonmedicinal substance allergy status
CPT/HCPCS: 99211

== ENCOUNTER → 2021-12-04 | Outpatient (CLI) | payer MEDICARE ==
[2021-12-04 18:25] LABS: Basophils # (A) 0.06 X 10*3/uL (0.00-0.10); Eosinophils # (A) 0.26 X 10*3/uL (0.04-0.35); Eosinophils % (A) 4.5 %; HGB 14.1 g/dL (12.0-15.0); Immature Grans, Automated 0.3 %; Lymphocytes # (A) 1.08 X 10*3/uL (0.90-5.00); Lymphocytes % (A) 18.6 %; MCH 30.8 pg (27.0-32.0); MCHC 31.3 g/dL (32.0-37.0); MCV 98.3 fL (80.0-97.0); Mean Platelet Volume 9.7 fL (9.5-12.2); Monocytes # (A) 0.49 X 10*3/uL (0.20-1.00); Monocytes % (A) 8.4 %; NRBC Per 100 WBC 0 /100 WBCS (0.0-0.0); Neutrophils # (A) 3.89 X 10*3/uL (1.80-7.70); Neutrophils % (A) 67.2 %; Platelet Count 277 X 10*3/uL (140-440); RBC 4.58 X 10*6/uL (4.10-5.20); RDW 12.4 % (11.5-14.5)
== END | disposition home or self-care (01) ==
LOC: LABWHC1 11:39
DX: Z20.822 Contact with and (suspected) exposure to COVID-19 (principal); K44.9 Diaphragmatic hernia without obstruction or gangrene
CPT/HCPCS: 86900; 86901; 85025; 86850; 36415; U0003

== ENCOUNTER → 2022-03-04 | Outpatient (CLI) | payer MEDICARE, OTHER ==
--- NOTE | 2022-03-05 09:53 | MM ---
Reason for Exam: Screening (asymptomatic). Last mammogram was performed 1 year(s) and 7 month(s) ago. Patient History: Menarche at age 14. First Full-Term at age 22. Hysterectomy at age 43. Postmenopausal. Patient has history of breast feeding. Maternal cousin had breast cancer, age 50. Mother had breast cancer, age 70. Risk Values: Carly 5 year model risk: 3.4%. NCI Lifetime model risk: 7.2%. Prior Study Comparison: 10/05/2015 Bilateral Screening Mammogram, [facility]. 10/06/2016 Bilateral Screening Mammogram, [facility]. 06/08/2018 Bilateral Screening Mammogram, [facility]. 08/18/2019 Bilateral Diagnostic Mammogram, [facility]. 08/20/2020 Bilateral Screening Mammogram, [facility]. Tissue Density: There are scattered fibroglandular densities. Findings: Analyzed By CAD. Scattered benign punctate calcifications are present. No suspicious groups of microcalcifications, spiculated or lobular masses, architectural distortion or other secondary signs of malignancy are mammographically apparent. Overall Assessment: Benign, BI-RAD 2 Management: Screening Mammogram of both breasts in 1 year. A negative mammogram report should not preclude additional follow up of suspicious palpable abnormalities. Patient should continue monthly self breast exam. A clinical breast exam by your physician is recommended on an annual basis and results should be correlated with mammographic findings. Electronically signed and approved by: Mike Guaman D.O. Radiologis
== END | disposition home or self-care (01) ==
LOC: RADMAMWWP 13:30
PROVIDERS: ATTEND Family Medicine
DX: Z12.31 Encounter for screening mammogram for malignant neoplasm of breast (principal); Z78.0 Asymptomatic menopausal state; Z80.3 Family history of malignant neoplasm of breast
CPT/HCPCS: 77063; 77067

== ENCOUNTER 2022-07-15 10:29 | Day surgery (SDC) | payer MEDICARE, OTHER ==
[2022-07-10 16:02] VITALS: BMI 39.2
[~2022-07-15 10:29] MED LIST changes: -ACETAMINOPHEN TAB 500 MG TAB PO ONE; -DEXAMETHASONE SOD PHOSPHATE 10 MG/ML 1 ML VIAL IV ONE; +LACTATED RINGERS 1,000 ML IV SCH; -MIDAZOLAM 2 MG/2 ML VIAL IV PRN; -ONDANSETRON 4 MG/2 ML VIAL IVP ONE; -TRANEXAMIC ACID 1,000 MG in SODIUM CHLORIDE 0.9% 50 ML IVPB ONE; -ceFAZolin IN SWFI 2 GM/20 ML SYRINGE IVP ONE; -fentaNYL (PF) 50 MCG/ML 2 ML AMP IV PRN
[2022-07-15] MEDS ORDERED: PROPOFOL 10 MG/ML 20 ML VIAL IV ONE (11:29)
[2022-07-15] MEDS ORDERED: LIDOCAINE 2% INJ 20 MG/ML (2 ML VIAL) ONE (11:29)
--- NOTE | 2022-07-15 11:32 | P.GSHP ---
History of Present Illness H&P Date: 07/15/22 Chief Complaint: dysphagia 77-year-old female here today for upper endoscopy. Patient with history of large hiatal hernia. Underwent previous repair at [facility]. Since that time patient has had issues with dysphagia. Past Medical History Past Medical History: GERD/Reflux, Osteoarthritis (OA), Skin Disorder, Thyroid Disorder Additional Past Medical History / Comment(s): DEVELOPED ILEUS AFTER BACK SURGERY. TINNITUS. , RESTLESS LEG SYNDROME, OAB., HX FALL AND CONCUSSION JUNE 2022-HAS "BUMP ABOVE LEFT EYE" WITH BRUISING., BRUISES EASILY., HX OF HIATAL HERNIA REPAIR (JANUARY 2022)- STATES FOOD GETTING STUCK., STATES BM AFTER EATING AND FREQUENT DIARRHEA. History of Any Multi-Drug Resistant Organisms: MRSA Date of last positivie culture/infection: 01/30/13 MDRO Source:: Back Past Surgical History: Back Surgery, Cholecystectomy, Hernia Repair, Hysterectomy, Joint Replacement, Orthopedic Surgery Additional Past Surgical History / Comment(s): Right knee replacement X2, Torn rotator cuff (2 on right & once on left), CTR aden, trigger finger aden, toe surgery-little toe, left heel surgery. , BACK SURGERY SURGERY WITH DENIA, TOTAL RIGHT SHOULDER , BLEPHOPLASTY, HIATAL HERNIA REPAIR January AT [place]. Past Anesthesia/Blood Transfusion Reactions: No Reported Reaction Additional Past Anesthesia/Blood Transfusion Reaction / Comment(s): (DEVELOPED ILEUS AFTER BACK SURGERY) Past Psychological History: Anxiety, Depression Smoking Status: Former smoker Past Alcohol Use History: None Reported Additional Past Alcohol Use History / Comment(s): Quit smoking 1970, smoked for 10 yrs - 1 PPD. 2 drinks a day Past Drug Use History: None Reported Additional Drug Use History / Comment(s): OCCASIONAL CBD GUMMY - Past Family History Mother Family Medical History: Cancer Additional Family Medical History / Comment(s): CA: breast, lung Father Family Medical History: AFIB Additional Family Medical History / Comment(s): parkinsons Sister(s) Family Medical History: CVA/TIA Medications and Allergies Home Medications Medication Instructions Recorded Confirmed Type Omeprazole [PriLOSEC] 20 mg PO DAILY 10/16/15 07/15/22 History Collagen Tab 1 tab PO DAILY 02/19/21 07/15/22 History Gabapentin 300 mg PO BID 02/19/21 07/15/22 History Glucosam/Dustin-Msm1/C/José Miguel/Bosw 1 tab PO DAILY 02/19/21 07/15/22 History [Glucosamine-Chondroitin Tablet] Levothyroxine Sodium [Synthroid] 125 mcg PO HS 02/19/21 07/15/22 History Solifenacin Succinate 10 mg PO DAILY 02/19/21 07/15/22 History Turmeric Root Extract [Turmeric] 500 mg PO DAILY 02/19/21 07/15/22 History Vitamin B Complex 1 cap PO DAILY 02/19/21 07/15/22 History Cbd Gummy 1 dose PO DIRECTED 07/10/22 07/15/22 History Iron (Unknown Dose) 1 tab PO HS 07/10/22 07/15/22 History L.acidoph,Paracasei, B.lactis 1 each PO DAILY 07/10/22 07/15/22 History [Probiotic] Magnesium (Unknown Dose) 1 dose PO DAILY 07/10/22 07/15/22 History Multivitamins, Thera [Multivitamin 1 tab PO HS 07/10/22 07/15/22 History (formulary)] Pramipexole [Mirapex] 0.25 mg PO HS 07/10/22 07/15/22 History Sertraline [Zoloft] 100 mg PO DAILY 07/10/22 07/15/22 History Vitamin D3 (Unknown Dose) 1 dose PO DAILY 07/10/22 07/15/22 History Allergies Allergy/AdvReac Type Severity Reaction Status Date / Time STERI STRIPS Allergy RED, ITCHY Uncoded 07/10/22 16:04 Surgical - Exam Physical exam: General: Well-developed, well-nourished HEENT: Facial bruising, sclerae nonicteric Abdomen: Nontender, nondistended Extremities: No edema Neuro: Alert and oriented Assessment and Plan (1) Dysphagia Narrative/Plan: Will proceed with upper endoscopy and possible dilation Current Visit: Yes Status: Acute Code(s): R13.10 - DYSPHAGIA, UNSPECIFIED SNOMED Code(s): 19679979
--- NOTE | 2022-07-15 11:51 | P.PCN ---
Date of Procedure: 07/15/22 Procedure(s) Performed: Preoperative Dx: Dysphagia Postoperative Dx: Mild gastritis Procedure: EGD with Bx Anesthesia: Sedation Endoscopist: Dr. Mccann Specimens: Antrum Endoscopic Procedure: The patient was on the endoscopy table in the left decubitus position. The Olympus gastroscope was inserted into the oropharynx and passed under direct visualization to the region of the third portion of the duodenum. From that point the scope was slowly withdrawn inspecting all surfaces carefully. There were no neoplastic inflammatory or polypoid lesions throughout the duodenum. The pylorus was widely patent. The stomach was carefully inspected. There was mild gastritis present. A biopsy of the antrum took place to rule out H. pylori. Retroflexion revealed postoperative changes from previous hiatal hernia repair. There was no definitive stricture present. Dilation took place at 15, 16.5, and 18 mm. The esophagus was then carefully examined. There were no neoplastic inflammatory or polypoid lesions throughout the visualized esophagus. The patient was then taken to the recovery room in stable condition per anesthesia guidelines. Recommendations: Endoscopic findings show no obvious stricture formation. Resume diet.
[2022-07-15 12:36] VITALS: BP 145/67; PULSE 67; RESP 18
== END 2022-07-15 12:41 | disposition home or self-care (01) ==
LOC: ORWHC2ENDO 10:29
PROVIDERS: ATTEND Surgery
DX: K29.50 Unspecified chronic gastritis without bleeding (principal); R13.19 Other dysphagia; K21.9 Gastro-esophageal reflux disease without esophagitis; M19.90 Unspecified osteoarthritis, unspecified site; G25.81 Restless legs syndrome; F41.8 Other specified anxiety disorders; E07.9 Disorder of thyroid, unspecified; Z98.890 Other specified postprocedural states; Z90.89 Acquired absence of other organs; Z90.710 Acquired absence of both cervix and uterus; Z87.891 Personal history of nicotine dependence; Z80.3 Family history of malignant neoplasm of breast; Z80.1 Family history of malignant neoplasm of trachea, bronchus and lung; Z81.8 Family history of other mental and behavioral disorders; Z82.3 Family history of stroke; Z79.1 Long term (current) use of non-steroidal anti-inflammatories (NSAID); Z79.899 Other long term (current) drug therapy; Z79.890 Hormone replacement therapy; Z91.040 Latex allergy status
CPT/HCPCS: 88305; 43239; J2704; J2001; C1726; 43249

== ENCOUNTER → 2023-03-23 | Outpatient (CLI) | payer MEDICARE, OTHER ==
--- NOTE | 2023-03-23 16:22 | FL ---
EXAMINATION TYPE: FL barium swallow DATE OF EXAM: 03/23/2023 COMPARISON: None HISTORY: Dysphasia TECHNIQUE: A double air contrast UGI study is performed. FINDINGS: Fluoroscopy time: 24 seconds DAP 2481.23. Esophagus dilates normal caliber and has normal contour to the gastroesophageal junction. Gastroesoph ageal junction opens to normal caliber. Multiple secondary and tertiary contractions were evident dur ing this examination. There is incomplete stripping of the esophageal bolus in the horizontal drinkin g position. No suspicious intraluminal or extramural defects are evident. Mild narrowing at the gastroesophageal junction may be present. No reflux was evident. Patient did complain of some discomfort at the gastro esophageal junction during swallowing. IMPRESSIONS: 1. There may mild narrowing of the gastroesophageal junction with mild hesitancy. 2. Incomplete stripping of the esophageal bolus with secondary and tertiary contractions.
== END | disposition home or self-care (01) ==
LOC: RADUSWWP 11:00
PROVIDERS: ATTEND Surgery Plastic and Reconstructive Surgery
DX: R13.10 Dysphagia, unspecified (principal)
CPT/HCPCS: 74220

== ENCOUNTER 2023-03-25 07:21 | Day surgery (SDC) | payer MEDICARE, OTHER ==
--- NOTE | 2023-03-25 07:41 | P.GSHP ---
History of Present Illness H&P Date: 03/25/23 CHIEF COMPLAINT: GERD and colon screen HISTORY OF PRESENT ILLNESS: The patient is a 77-year-old female who presents with gastroesophageal reflux disease and need for colon screen. Upper and lower endoscopy were offered for further evaluation and management. PAST MEDICAL HISTORY: Please see list. PAST SURGICAL HISTORY: Please see list. MEDICATIONS: Please see list. ALLERGIES: Please see list. SOCIAL HISTORY: No illicit drug use FAMILY HISTORY: No reports of Crohn disease or ulcerative colitis. REVIEW OF ORGAN SYSTEMS: CONSTITUTIONAL: No reports of fevers or chills. GI: Denies any blood in stools or constipation. PHYSICAL EXAM: VITAL SIGNS: Stable GENERAL: Well-developed pleasant in no acute distress. HEENT: No scleral icterus. Extraocular movements grossly intact. Moist buccal mucosa. NECK: Supple without lymphadenopathy. CHEST: Unlabored respirations. Equal bilateral excursions. CARDIOVASCULAR: Regular rate and rhythm. Distal 2+ pulses. ABDOMEN: Soft, nondistended. MUSCULOSKELETAL: No clubbing, cyanosis, or edema. ASSESSMENT: 1. Gastroesophageal reflux disease 2. Colon screen. PLAN: 1. Recommend proceeding with an upper and lower endoscopy Past Medical History Past Medical History: GERD/Reflux, Osteoarthritis (OA), Skin Disorder, Thyroid Disorder Additional Past Medical History / Comment(s): DEVELOPED ILEUS AFTER BACK SURGERY. TINNITUS. , RESTLESS LEG SYNDROME, OAB., HX FALL AND CONCUSSION JUNE 2022-HAS "BUMP ABOVE LEFT EYE" WITH BRUISING., BRUISES EASILY., HX OF HIATAL HERNIA REPAIR (JANUARY 2022)- STATES FOOD GETTING STUCK., STATES BM AFTER EATING AND FREQUENT DIARRHEA. History of Any Multi-Drug Resistant Organisms: MRSA Date of last positivie culture/infection: 01/30/13 MDRO Source:: Back Past Surgical History: Back Surgery, Cholecystectomy, Hernia Repair, Hysterectomy, Joint Replacement, Orthopedic Surgery Additional Past Surgical History / Comment(s): Right knee replacement X2, Torn rotator cuff (2 on right & once on left), CTR aden, trigger finger aden, toe surgery-little toe, left heel surgery. , BACK SURGERY SURGERY WITH DENIA, TOTAL RIGHT SHOULDER , BLEPHOPLASTY, HIATAL HERNIA REPAIR January AT [facility]. Past Anesthesia/Blood Transfusion Reactions: No Reported Reaction Additional Past Anesthesia/Blood Transfusion Reaction / Comment(s): (DEVELOPED ILEUS AFTER BACK SURGERY) Past Psychological History: Anxiety, Depression Smoking Status: Former smoker Past Alcohol Use History: Daily Additional Past Alcohol Use History / Comment(s): Quit smoking 1971, smoked for 10 yrs - 1 PPD. 2 drinks a day Past Drug Use History: None Reported Additional Drug Use History / Comment(s): OCCASIONAL CBD GUMMY - Past Family History Mother Family Medical History: Cancer Additional Family Medical History / Comment(s): CA: breast, lung Father Family Medical History: AFIB Additional Family Medical History / Comment(s): parkinsons Sister(s) Family Medical History: CVA/TIA Medications and Allergies Home Medications Medication Instructions Recorded Confirmed Type Omeprazole [PriLOSEC] 20 mg PO QAM 10/16/15 03/24/23 History Gabapentin 300 mg PO BID 02/19/21 03/24/23 History Glucosam/Dustin-Msm1/C/José Miguel/Bosw 1 tab PO DAILY 02/19/21 03/24/23 History [Glucosamine-Chondroitin Tablet] Levothyroxine Sodium [Synthroid] 125 mcg PO HS 02/19/21 03/24/23 History Turmeric Root Extract [Turmeric] 500 mg PO DAILY 02/19/21 03/24/23 History Cbd Gummy 1 dose PO DIRECTED 07/10/22 03/24/23 History Iron (Unknown Dose) 1 tab PO HS 07/10/22 03/24/23 History L.acidoph,Paracasei, B.lactis 1 each PO DAILY 07/10/22 03/24/23 History [Probiotic] Magnesium (Unknown Dose) 1 dose PO DAILY 07/10/22 03/24/23 History Pramipexole [Mirapex] 0.25 mg PO HS 07/10/22 03/24/23 History Vitamin D3 (Unknown Dose) 1 dose PO DAILY 07/10/22 03/24/23 History Cholecalciferol [Vitamin D3 (25 25 mcg PO DAILY 03/24/23 03/24/23 History Mcg = 1000 Iu)] Donepezil [Aricept] 10 mg PO QAM 03/24/23 03/24/23 History Glucosam/Chond/Hyalu/Cf Borate 1 tab PO DAILY 03/24/23 03/24/23 History [Move Free Joint Health Tablet] Magnesium 250 mg PO DAILY 03/24/23 03/24/23 History Oxybutynin Chloride [oxyBUTYnin 15 mg PO QAM 03/24/23 03/24/23 History chloride ER] Venlafaxine HCl [Effexor] 37.5 mg PO QAM 03/24/23 03/24/23 History Vitamin B Complex/Folic Acid 1 tab PO DAILY 03/24/23 03/24/23 History [Vitamin B Complex Tablet] Allergies Allergy/AdvReac Type Severity Reaction Status Date / Time STERI STRIPS Allergy RED, ITCHY Uncoded 03/24/23 08:14
[2023-03-25 07:49] VITALS: RESP 16; TEMP 98.3
[2023-03-25] MEDS ORDERED: LIDOCAINE 1% (10MG/ML) FOR IV START INTRADERMA ONE (07:51)
[2023-03-25] MEDS ORDERED: LIDOCAINE 2% INJ 20 MG/ML (2 ML VIAL) ONE (08:04)
[2023-03-25] MEDS ORDERED: PROPOFOL 10 MG/ML 20 ML VIAL IV ONE (08:04)
--- NOTE | 2023-03-25 08:31 | P.PCN ---
Date of Procedure: 03/25/23 Description of Procedure: PREOPERATIVE DIAGNOSIS: Gastroesophageal reflux disease Epigastric abdominal pain Dysphagia POSTOPERATIVE DIAGNOSIS: Esophageal stenosis Severe gastritis Gastroesophageal reflux disease Gastric ulcers OPERATION: Esophagogastroduodenoscopy with rigid dilator over the guidewire 54 Fr with dilation Esophagogastroduodenoscopy with cold forceps biopsies stomach/antrum and duodenum SURGEON: Radha Escobar MD ANESTHESIA: MAC. INDICATIONS: The patient is a 77-year-old male who presents with a history of gastroesophageal reflux disease with abdominal pain. Benefits and risks of the procedure were described. Informed consent was obtained. DESCRIPTION: The patient was brought into the endoscopy suite and laid in the left lateral decubitus position. After a timeout was confirmed, the procedure was initiated. An Olympus gastroscope was passed into the posterior oropharynx where a lower esophageal stenosis was identified. The scope was passed down to the distal esophagus. To address the upper esophageal stenosis, rigid dilator over guidewire was selected. Next using an Slovenian rigid dilator, a guidewire was placed through the gastroscope. Next the scope was withdrawn. A 54-[place] Citizen rigid Slovenian dilator was passed carefully along the posterior oropharynx to 45 cm and left in place for 2-3 minutes stretch. The dilator was withdrawn including the guidewire. The scope was reentered along the posterior oropharynx with no findings of full- thickness tear of the upper esophageal sphincter. Additional findings below. Within the stomach, moderate gastritis were identified along the body of the stomach with cold forceps biopsies obtained. The lower esophageal valve was evaluated with Hill grade 1 lower esophageal valve. LA grade B erosive esophagitis was identified. Intact Willis fundoplasty found No full-thickness injury was encountered. The GI tract was desufflated. The patient tolerated the procedure well. FINDINGS: Lower esophageal stenosis dilated 54-[place] Citizen rigid dilator Diaphragmatic hiatus at 35 cm from the incisors Squamocolumnar junction 35 cm from the incisors. Moderate gastritis along the gastric body and fundus cold forceps biopsies obtained Duodenal biopsies obtained Duodenum with mild duodenitis LA grade A erosive esophagitis Hill grade A lower esophageal valve. Intact Willis fundoplasty RECOMMENDATIONS: Upper endoscopy as needed
--- NOTE | 2023-03-25 08:56 | P.PCN ---
Date of Procedure: 03/25/23 Description of Procedure: PREOPERATIVE DIAGNOSIS: Colitis Change in bowel habits POSTOPERATIVE DIAGNOSIS: Sigmoid volvulus Sigmoid diverticulosis OPERATION: Colonoscopy to the transverse colon SURGEON: Radha Escobar MD. ANESTHESIA: MAC. INDICATIONS: The patient is a 77-year-old female who presents changes in bowel habits/colitis Benefits and risks were described and informed consent was obtained. DESCRIPTION OF PROCEDURE: The patient had undergone Sutab prep. She had been brought into the operating room and laid in the left lateral decubitus position. After adequate intravenous sedation, the rectum was examined with 2% lidocaine jelly. No external hemorrhoids were encountered. The rectal tone was within normal limits. No lesions were palpated in the rectal vault. An Olympus colonoscope was advanced along the rectum to a very tortuous sigmoid colon. The scope was then exchanged for a pediatric colonoscope. Despite multiple maneuvers, the sigmoid colon had severe tortuosity preventing further advancement of scope. The scope was passed to the transverse colon. No evidence of polyps were identified. As the patient posed high risk for perforation with persistence of the procedure, the procedure was discontinued. The colon was desufflated. The patient had tolerated the procedure well. Withdrawal time was over 6 minutes. FINDINGS: Aronchik preparation quality scale 2 (1-5) Tortuous sigmoid colon with stricture preventing further advancement of the scope beyond transverse colon. No external prolapsed hemorrhoids. Scope advanced to transverse colonfor sigmoid volvulus No arteriovenous malformations. No focal colitis identified of sigmoid/descending colon Scope nondiagnostic beyond transverse colon RECOMMENDATIONS: Completion of colonoscopy evaluation with barium enema. Repeat colonoscopy 3 years, 2025 Plan - Discharge Summary Discharge Rx Participant: No New Discharge Prescriptions: Continue Omeprazole [PriLOSEC] 20 mg PO QAM Levothyroxine Sodium [Synthroid] 125 mcg PO HS Turmeric Root Extract [Turmeric] 500 mg PO DAILY Pramipexole [Mirapex] 0.25 mg PO HS Magnesium (Unknown Dose) 1 dose PO DAILY Donepezil [Aricept] 10 mg PO QAM Magnesium 250 mg PO DAILY Vitamin B Complex/Folic Acid [Vitamin B Complex Tablet] 1 tab PO DAILY Gabapentin 300 mg PO BID Glucosam/Dustin-Msm1/C/José Miguel/Bosw [Glucosamine-Chondroitin Tablet] 1 tab PO DAILY Vitamin D3 (Unknown Dose) 1 dose PO DAILY L.acidoph,Paracasei, B.lactis [Probiotic] 1 each PO DAILY Iron (Unknown Dose) 1 tab PO HS Cbd Gummy 1 dose PO DIRECTED Cholecalciferol [Vitamin D3 (25 Mcg = 1000 Iu)] 25 mcg PO DAILY Glucosam/Chond/Hyalu/Cf Borate [Move Free Joint Health Tablet] 1 tab PO DAILY Oxybutynin Chloride [oxyBUTYnin chloride ER] 15 mg PO QAM Venlafaxine HCl [Effexor] 37.5 mg PO QAM Discharge Medication List Omeprazole [PriLOSEC] 20 mg PO QAM 10/16/15 [History] Gabapentin 300 mg PO BID 02/19/21 [History] Glucosam/Dustin-Msm1/C/José Miguel/Bosw [Glucosamine-Chondroitin Tablet] 1 tab PO DAILY 02/19/21 [History] Levothyroxine Sodium [Synthroid] 125 mcg PO HS 02/19/21 [History] Turmeric Root Extract [Turmeric] 500 mg PO DAILY 02/19/21 [History] Cbd Gummy 1 dose PO DIRECTED 07/10/22 [History] Iron (Unknown Dose) 1 tab PO HS 07/10/22 [History] L.acidoph,Paracasei, B.lactis [Probiotic] 1 each PO DAILY 07/10/22 [History] Magnesium (Unknown Dose) 1 dose PO DAILY 07/10/22 [History] Pramipexole [Mirapex] 0.25 mg PO HS 07/10/22 [History] Vitamin D3 (Unknown Dose) 1 dose PO DAILY 07/10/22 [History] Cholecalciferol [Vitamin D3 (25 Mcg = 1000 Iu)] 25 mcg PO DAILY 03/24/23 [History] Donepezil [Aricept] 10 mg PO QAM 03/24/23 [History] Glucosam/Chond/Hyalu/Cf Borate [Move Free Joint Health Tablet] 1 tab PO DAILY 03/24/23 [History] Magnesium 250 mg PO DAILY 03/24/23 [History] Oxybutynin Chloride [oxyBUTYnin chloride ER] 15 mg PO QAM 03/24/23 [History] Venlafaxine HCl [Effexor] 37.5 mg PO QAM 03/24/23 [History] Vitamin B Complex/Folic Acid [Vitamin B Complex Tablet] 1 tab PO DAILY 03/24/23 [History] Follow up Appointment(s)/Referral(s): Radha Escobar MD [STAFF PHYSICIAN] - 04/14/23 1:00 pm Patient Instructions/Handouts: Diverticulosis (GEN), Diverticulosis Diet (GEN) Activity/Diet/Wound Care/Special Instructions: Repeat colonoscopy 3 years, 2025 Discharge Disposition: HOME SELF-CARE
[2023-03-25 10:16] VITALS: BP 139/64; PULSE 55
--- NOTE | 2023-03-25 13:55 | FL ---
EXAMINATION TYPE: FL barium enema DATE OF EXAM: 03/25/2023 CLINICAL HISTORY: volvulus, no biopsies, scope to hep flex. TECHNIQUE: A air contrast barium enema study is performed. Total dose area product (DAP) in uGy*m?, mGy*cm? (or similar): COMPARISON: None. FINDINGS: Director Mission view of the abdomen shows overall non-obstructive bowel gas pattern. There is nonopa cification of the right hemicolon given the air block. No evidence of any mass or polyp, obstructing or constricting lesion throughout the remainder of the colon. Scattered colonic diverticulosis withou t diverticulitis. Terminal ileum not visualized. IMPRESSION: 1.There is nonopacification of the right hemicolon given the air block. 2. The remainder of the colon is free of polyp, mass or annular constricting lesion. Scattered divert iculosis.
== END 2023-03-25 11:00 | disposition home or self-care (01) ==
LOC: ORWHC2ENDO 07:21
PROVIDERS: ATTEND Surgery Plastic and Reconstructive Surgery
DX: K29.50 Unspecified chronic gastritis without bleeding (principal); K22.2 Esophageal obstruction; K21.00 Gastro-esophageal reflux disease with esophagitis, without bleeding; K25.9 Gastric ulcer, unspecified as acute or chronic, without hemorrhage or perforation; K44.9 Diaphragmatic hernia without obstruction or gangrene; K29.80 Duodenitis without bleeding; K52.9 Noninfective gastroenteritis and colitis, unspecified; M19.90 Unspecified osteoarthritis, unspecified site; E07.9 Disorder of thyroid, unspecified; Z90.49 Acquired absence of other specified parts of digestive tract; Z98.890 Other specified postprocedural states; Z96.651 Presence of right artificial knee joint; F32.A Depression, unspecified; F41.9 Anxiety disorder, unspecified; Z87.891 Personal history of nicotine dependence; F10.90 Alcohol use, unspecified, uncomplicated; Z80.3 Family history of malignant neoplasm of breast; Z80.1 Family history of malignant neoplasm of trachea, bronchus and lung; Z82.49 Family history of ischemic heart disease and other diseases of the circulatory system; Z82.0 Family history of epilepsy and other diseases of the nervous system; Z79.890 Hormone replacement therapy; Z79.899 Other long term (current) drug therapy
CPT/HCPCS: 88305; 74270; 45378; 43239; 43248; J2704; J2001; 43249

== ENCOUNTER → 2023-08-21 | Outpatient (CLI) | payer MEDICARE, OTHER ==
--- NOTE | 2023-08-25 14:51 | US ---
EXAMINATION TYPE: US arterial LE single level DATE OF EXAM: 08/21/2023 1:19 PM CLINICAL INDICATION: Female, 78 years old with history of I73.9 PERIPHERAL VASCULAR DISEASE, UNSPECIF IED; low pulse ox on toes, slow healing wounds History of: Smoker: previous Hypertension: No Diabetic: No Hyperlipidemia: No TIA/CVA: No Previous Vascular Surgery: No CAD: No AL: No Vascular Ulcers: No Claudication: No Gangrene: No Doppler Waveforms: Right: Multiphasic, monophasic waveforms involving the right dorsalis pedis artery and digit Left: Multiphasic L monophasic waveforms involving the digit Right Brachial Pressure: 132 Left Brachial Pressure: 130 Ankle-Brachial Indices: Right: 1.2 Left: 1.1 Toe Brachial Indices: Right: CNO Left: CNO irregular rhythm IMPRESSION: 1. Normal ankle-brachial indices bilaterally. 2. Monophasic waveforms involving the right dorsalis pedis and bilateral digits suggesting at least m ild distal peripheral vascular disease bilaterally. 3. Irregular heart rhythm.
== END | disposition home or self-care (01) ==
LOC: RADUSWWP 12:37
PROVIDERS: ATTEND Nurse Practitioner
DX: I73.9 Peripheral vascular disease, unspecified (principal)
CPT/HCPCS: 93922

== ENCOUNTER → 2024-03-07 | Outpatient (CLI) | payer MEDICARE ==
--- NOTE | 2024-03-31 11:22 | MR ---
Site ID [facility] Patient Christie Loera L ID [id number] EXAMINATION TYPE: MR brain wo con DATE OF EXAM: 03/13/2024 10:16 AM CLINICAL INDICATION: CVA, Brain Fog, Memory Loss COMPARISON: THIS EXAM WAS READ DURING PACS DOWNTIME, NO PRIORS AVAILABLE.. TECHNIQUE: Multi planar, multi sequence imaging was performed through the brain including: T1, T2, In version recovery, Diffusion weighted imaging, and gradient echo imaging. No gadolinium was given. FINDINGS: The gan-white junctions, ventricular system, basal cisterns appear unremarkable. Scattered foci of high T2 signal intensity are seen within the periventricular white matter. Midline structures show n o abnormality. Diffusion-weighted imaging shows no evidence of restricted diffusion. The susceptibili ty weighted images do not reveal any evidence for micro-hemorrhage. The bone marrow signal is within normal limits. Paranasal sinuses and mastoid air cells: No significant paranasal sinus disease. Visualized orbits: Bilateral aphakia IMPRESSION: 1. No evidence of intracranial mass or acute/subacute infarct. 2. Nonspecific white matter changes, likely secondary to small vessel ischemic disease.
== END | disposition home or self-care (01) ==
LOC: RADMRIMAIN 10:09
PROVIDERS: ATTEND Psychiatry & Neurology Neurology
DX: R41.3 Other amnesia (principal); H27.03 Aphakia, bilateral
CPT/HCPCS: 70551

== ENCOUNTER → 2024-03-08 | Outpatient (CLI) | payer MEDICARE | END | disposition home or self-care (01) | LOC: LABPRL 15:30 | PROVIDERS: ATTEND Family Medicine | DX: E03.9 Hypothyroidism, unspecified (principal) | CPT/HCPCS: 84443 ==

== ENCOUNTER 2024-05-13 10:39 | Emergency (ER) | payer MEDICARE ==
[2024-05-13 10:46] VITALS: RESP 18; TEMP 98
[2024-05-13 11:38] LABS: Basophils % (A) 0 %; Eosinophils # (A) 0.3 k/uL (0-0.7); Eosinophils % (A) 4 %; HCT 43.3 % (34.0-46.0); HGB 14.7 gm/dL (11.4-16.0); Lymphocytes # (A) 1.4 k/uL (1.0-4.8); Lymphocytes % (A) 24 %; MCH 31.3 pg (25.0-35.0); MCHC 33.9 g/dL (31.0-37.0); MCV 92.4 fL (80.0-100.0); Mean Platelet Volume 7.6; Monocytes # (A) 0.3 k/uL (0-1.0); Monocytes % (A) 5 %; Neutrophils # (A) 3.8 k/uL (1.3-7.7); Neutrophils % (A) 64 %; Platelet Count 232 k/uL (150-450); RBC 4.68 m/uL (3.80-5.40); RDW 12.7 % (11.5-15.5); WBC 5.9 k/uL (3.8-10.6)
[2024-05-13 12:03] LABS: INR 0.9 (<1.2); Partial Thromboplastin Time 23.8 sec (22.0-30.0); Prothrombin Time 9.9 sec (10.0-12.5)
[2024-05-13 12:05] LABS: ALT 23 U/L (4-34); AST 30 U/L (14-36); African American GFR (CKD) >90 (>60 ml/min/1.73 sqM); Albumin 4.6 g/dL (3.5-5.0); Alkaline Phosphatase 128 U/L (38-126); Anion Gap 6 mmol/L; Blood Urea Nitrogen 12 mg/dL (7-17); Calcium 9.7 mg/dL (8.4-10.2); Carbon Dioxide 25 mmol/L (22-30); Chloride 108 mmol/L (98-107); Glucose 92 mg/dL (74-99); Lipase 102 U/L (23-300); Non-African American GFR(CKD) >90 (>60 ml/min/1.73 sqM); Potassium 4.4 mmol/L (3.5-5.1); Sodium 139 mmol/L (137-145); Total Bilirubin 0.7 mg/dL (0.2-1.3); Total Protein 7.3 g/dL (6.3-8.2)
[2024-05-13 12:11] LABS: NT-Pro-B-Type Natriuretic Pept 57 pg/mL
--- NOTE | 2024-05-13 12:19 | XR ---
EXAMINATION TYPE: XR chest 2V DATE OF EXAM: 05/13/2024 COMPARISON: 02/19/2021 HISTORY: 79-year-old female with chest pain TECHNIQUE: PA and lateral views FINDINGS: Reverse right shoulder arthroplasty. Low lung volumes with crowded vascular markings. The heart is up per limits of normal in size. Strandy atelectasis in the lower lungs. Posterior lumbar fusion hardwar e. Accentuated lower thoracic kyphosis. No keron consolidation or pleural effusions. IMPRESSION: Borderline heart size. Hypoventilatory changes. No definite acute process. [facility], , 05/13/2024 12:16 PM
--- NOTE | 2024-05-13 12:54 | ED ---
Chest Pain HPI - General Chief Complaint: Chest Pain Stated Complaint: AMS,Chest pain Time Seen by Provider: 05/13/24 10:51 Source: patient Mode of arrival: wheelchair Limitations: no limitations - History of Present Illness Initial Comments: 79-year-old female who presents emergency department reporting chest pain. She describes it as a pressure sensation in her chest. States that she has a history of GERD however this does not feel similar. The burning sensation is substernal without radiation. It started when she woke up. She states that she tried to drink a cool cup of water. This usually alleviates her reflux symptoms. When this did not work she called EMS. She denies history of cardiac disease. No history of stents or irregular heart rhythms. She admits to mild shortness of breath when the pain comes on. Pain is active at this time graded 4 out of 10. She has not take anything for the pain at home. She denies fev ers, chills or cough. No other alleviating, precipitating or modifying factors - Related Data Home Medications Medication Instructions Recorded Confirmed Omeprazole [PriLOSEC] 20 mg PO BID 10/16/15 05/13/24 L.acidoph,Paracasei, B.lactis 1 cap PO DAILY 07/10/22 05/13/24 [Probiotic] Pramipexole [Mirapex] 0.25 mg PO HS 07/10/22 05/13/24 Oxybutynin Chloride [oxyBUTYnin 15 mg PO QAM 03/24/23 05/13/24 chloride ER] Active Mind 1 tab PO DAILY 05/13/24 05/13/24 Ascorbic Acid/Collagen Hydr 1 cap PO HS 05/13/24 05/13/24 [Collagen Plus Vit C Capsule] Baclofen [Lioresal] 10 mg PO HS 05/13/24 05/13/24 Ergocalciferol [Vitamin D2 (1250 1,250 mcg PO SARGENT 05/13/24 05/13/24 Mcg = 48305 Iu)] Escitalopram [Lexapro] 10 mg PO DAILY 05/13/24 05/13/24 Ferrous Sulfate [Feosol] 325 mg PO HS 05/13/24 05/13/24 Gabapentin 300 mg PO BID 05/13/24 05/13/24 Glucosamine/Chondr Sargent A Sod [Osteo 1 tab PO DAILY 05/13/24 05/13/24 Bi-Flex Caplet] Levothyroxine Sodium [Synthroid] 150 mcg PO HS 05/13/24 05/13/24 Magnesium Oxide [Magnesium] 500 mg PO HS 05/13/24 05/13/24 Memantine [Namenda] 10 mg PO BID 05/13/24 05/13/24 Multivitamins, Thera [Multivitamin 1 tab PO DAILY 05/13/24 05/13/24 (formulary)] Allergies Allergy/AdvReac Type Severity Reaction Status Date / Time STERI STRIPS Allergy RED, ITCHY Uncoded 05/13/24 13:14 Review of Systems ROS Statement: Those systems with pertinent positive or pertinent negative responses have been documented in the HPI. ROS Other: All systems not noted in ROS Statement are negative. Past Medical History Past Medical History: GERD/Reflux, Osteoarthritis (OA), Skin Disorder, Thyroid Disorder Additional Past Medical History / Comment(s): DEVELOPED ILEUS AFTER BACK SURGERY. TINNITUS. , RESTLESS LEG SYNDROME, OAB., HX FALL AND CONCUSSION JUNE 2022-HAS "BUMP ABOVE LEFT EYE" WITH BRUISING., BRUISES EASILY., HX OF HIATAL HERNIA REPAIR (JANUARY 2022)- STATES FOOD GETTING STUCK., STATES BM AFTER EATING AND FREQUENT DIARRHEA. History of Any Multi-Drug Resistant Organisms: MRSA Date of last positivie culture/infection: 01/30/13 MDRO Source:: Back Past Surgical History: Back Surgery, Cholecystectomy, Hernia Repair, Hysterectomy, Joint Replacement, Orthopedic Surgery Additional Past Surgical History / Comment(s): Right knee replacement X2, Torn rotator cuff (2 on right & once on left), CTR aden, trigger finger aden, toe surgery-little toe, left heel surgery. , BACK SURGERY SURGERY WITH DENIA, TOTAL RIGHT SHOULDER , BLEPHOPLASTY, HIATAL HERNIA REPAIR January AT [facility]. Past Anesthesia/Blood Transfusion Reactions: No Reported Reaction Additional Past Anesthesia/Blood Transfusion Reaction / Comment(s): (DEVELOPED ILEUS AFTER BACK SURGERY) Past Psychological History: Anxiety, Depression Past Alcohol Use History: None Reported - Past Family History Mother Family Medical History: Cancer Additional Family Medical History / Comment(s): CA: breast, lung Father Family Medical History: AFIB Additional Family Medical History / Comment(s): parkinsons Sister(s) Family Medical History: CVA/TIA General Exam Limitations: no limitations General appearance: alert, in no apparent distress Head exam: Present: atraumatic, normocephalic, normal inspection Eye exam: Present: normal appearance, PERRL, EOMI. Absent: scleral icterus, conjunctival injection, periorbital swelling ENT exam: Present: normal exam, mucous membranes moist Neck exam: Present: normal inspection. Absent: tenderness, meningismus, lymphadenopathy Respiratory exam: Present: normal lung sounds bilaterally. Absent: respiratory distress, wheezes, rales, rhonchi, stridor Cardiovascular Exam: Present: regular rate, normal rhythm, normal heart sounds. Absent: systolic murmur, diastolic murmur, rubs, gallop, clicks GI/Abdominal exam: Present: soft, normal bowel sounds. Absent: distended, tenderness, guarding, rebound, rigid Extremities exam: Present: normal inspection, full ROM, normal capillary refill. Absent: tenderness, pedal edema, joint swelling, calf tenderness Back exam: Present: normal inspection Neurological exam: Present: alert, oriented X3, CN II-XII intact Psychiatric exam: Present: normal affect, normal mood Skin exam: Present: warm, dry, intact, normal color. Absent: rash Course Vital Signs 05/13/24 05/13/24 05/13/24 10:44 11:15 11:30 Temperature 98 F Pulse Rate 83 76 77 Respiratory 18 20 18 Rate Blood Pressure 154/98 158/95 O2 Sat by Pulse 98 96 94 L Oximetry 05/13/24 05/13/24 05/13/24 11:45 12:27 13:17 Temperature Pulse Rate 74 74 75 Respiratory 18 18 18 Rate Blood Pressure 162/98 132/75 123/85 O2 Sat by Pulse 95 97 95 Oximetry 05/13/24 14:35 Temperature Pulse Rate 71 Respiratory 18 Rate Blood Pressure 152/73 O2 Sat by Pulse 96 Oximetry Chest Pain MDM - MDM Was pt. sent in by a medical professional or institution (, PA, TELEPHONE OPERATORS SUPERVISOR, urgent care, hospital, or detention...) When possible be specific @ -No Did you speak to anyone other than the patient for history (EMS, parent, family, police, friend...)? What history was obtained from this source @ -No Did you review nursing and triage notes (agree or disagree)? Why? @ -I reviewed and agree with nursing and triage notes Were old charts reviewed (outside hosp., previous admission, EMS record, old EKG, old radiological studies, urgent care reports/EKG's, detention records)? Report findings @ -No old charts were reviewed Differential Diagnosis (chest pain, altered mental status, abdominal pain women, abdominal pain men, vaginal bleeding, weakness, fever, dyspnea, syncope, headache, dizziness, GI bleed, back pain, seizure, CVA, palpatations, mental health, musculoskeletal)? @ -Differential Chest Pain: Stable Angina, Unstable Angina, STEMI, NSTEMI Aortic Dissection, Pneumothorax, Musculoskeletal, Esophageal Spasm GERD, Cholecystitis, Pancreatitis, Zoster, this is not meant to be an all-inclusive list. EKG interpreted by me (3pts min.). @ -Yes and demonstrates sinus rhythm with a rate of 78. OR interval 166. QRS 79. QTc of 406. No acute ST segment elevations. Q wave in lead III and aVF which was seen on previous EKGs X-rays interpreted by me (1pt min.). @ -Yes and demonstrates no acute process however heart size is borderline CT interpreted by me (1pt min.). @ -None done U/S interpreted by me (1pt. min.). @ -None done What testing was considered but not performed or refused? (CT, X-rays, U/S, labs)? Why? @ -Serial troponins however patient does not want a be hospitalized What meds were considered but not given or refused? Why? @ -None Did you discuss the management of the patient with other professionals (professionals i.e. , PA, TELEPHONE OPERATORS SUPERVISOR, lab, RT, psych nurse, manager social, shelf stocker, teacher, affirmative action officer, assistant case manager)? Give summary @ -No Was smoking cessation discussed for >3mins.? @ -No Was critical care preformed (if so, how long)? @ -No Were there social determinants of health that impacted care today? How? (Homelessness, low income, unemployed, alcoholism, drug addiction, transportation, low edu. Level, literacy, decrease access to med. care, alf, rehab)? @ -No Was there de-escalation of care discussed even if they declined (Discuss DNR or withdrawal of care, Hospice)? DNR status @ -No What co-morbidities impacted this encounter? (DM, HTN, Smoking, COPD, CAD, Cancer, CVA, ARF, Chemo, Hep., AIDS, mental health diagnosis, sleep apnea, morbid obesity)? @ -None Was patient admitted / discharged? Hospital course, mention meds given and [place], prescriptions, significant lab abnormalities, going to OR and other pertinent info. @ -Upon arrival patient seen and evaluated in room 24. Thorough history and physical exam was performed. IV access was established. Laboratory studies were conducted. Chest x-ray was performed. First troponin is negative. I did recommend admission however patient states that she wants to go home. She is aware of the risks of leaving without further testing to include permanent disability and even . Patient was agreeable to these risks. Able to recite these risks back into her own words. She was agreeable to allowing me to complete a second troponin level which does come back and is still within normal limits. Patient is instructed that she must immediately follow-up with her primary care doctor. She needs a stress test and an echo. If she is agreeable to admission she should return. Patient agreeable to these recommendations however proceeded to go home in stable condition with a guarded prognosis Undiagnosed new problem with uncertain prognosis? @ -No Drug Therapy requiring intensive monitoring for toxicity (Heparin, Nitro, Insulin, Cardizem)? @ -No Were any procedures done? @ -No Diagnosis/symptom? @ -Acute chest pain Acute, or Chronic, or Acute on Chronic? @ -Acute Uncomplicated (without systemic symptoms) or Complicated (systemic symptoms)? @ -Complicated Side effects of treatment? @ -No Exacerbation, Progression, or Severe Exacerbation? @ -No Poses a threat to life or bodily function? How? (Chest pain, [place], [place], pneumonia, PE, COPD, DKA, ARF, appy, cholecystitis, CVA, Diverticulitis, Homicidal, Suicidal, threat to staff... and all critical care pts) @ -No Disposition Clinical Impression: Chest pain Disposition: HOME SELF-CARE Condition: Stable Instructions (If sedation given, give patient instructions): Chest Pain (ED) Additional Instructions: Please follow-up with your doctor. I recommend echo, stress test and Holter monitoring. Return for any new or worsening symptoms Is patient prescribed a controlled substance at d/c from ED?: No Referrals: Jolie Mccann MD [Primary Care Provider] - 1-2 days Time of Disposition: 14:38
[2024-05-13] MEDS: MAG HYDROX/AL HYDROX/SIMETH 30 ML, HYOSCYAMINE ELIXIR 10 ML, LIDOCAINE VISCOUS 2% 10 ML PO STA (13:01)
[2024-05-13 14:36] VITALS: BP 152/73; PULSE 71
== END 2024-05-13 14:52 | disposition home or self-care (01) ==
LOC: EC 10:39
CPT/HCPCS: 36415; 71046; 80053; 83690; 83735; 83880; 84484; 85025; 85610; 85730; 93005; 99285

== ENCOUNTER → 2024-10-28 | Outpatient (CLI) | payer MEDICARE, OTHER ==
--- NOTE | 2024-10-28 14:36 | MM ---
Reason for Exam: Screening (asymptomatic). Last mammogram was performed 2 year(s) and 7 month(s) ago. Patient History: Menarche at age 14. First Full-Term at age 22. Hysterectomy at age 43. Postmenopausal. Patient has history of breast feeding. Patient used Hormonal Contraceptives for 2 years. Maternal cousin had breast cancer, age 50. Mother had breast cancer, age 70. Risk Values: Carly 5 year model risk: 3.3%. NCI Lifetime model risk: 5.9%. Prior Study Comparison: 08/18/2019 Bilateral Diagnostic Mammogram, [facility]. 08/20/2020 Bilateral Screening Mammogram, [facility]. 03/04/2022 Bilateral MG 3D screening mammo w/cad, [facility]. Tissue Density: There are scattered areas of fibroglandular density. Findings: Analyzed By CAD. There is no suspicious group of microcalcifications or new suspicious mass in either breast. Favored to to 3 mm chronic nodularity right breast. Benign calcifications. Overall Assessment: Benign, BI-RAD 2 Management: Screening Mammogram of both breasts in 1 year. . Patient should continue monthly self-breast exams. A clinical breast exam by your physician is recommended on an annual basis. This exam should not preclude additional follow-up of suspicious palpable abnormalities. Note on Carly scores and lifetime risk: 1. A Carly score greater than 3% is considered moderate risk. If this is the case, consider specialist referral to assess eligibility for a risk reducing agent. 2. If overall lifetime risk for the development of breast cancer is 20% or higher, the patient may qualify for future screening with alternating mammogram and breast MRI. [facility], , 10/28/2024 2:34 PM. Electronically signed and approved by: Arvin Way M.D. Radiologis
== END | disposition home or self-care (01) ==
LOC: RADMAMWWP 14:12
PROVIDERS: ATTEND Internal Medicine
DX: Z12.31 Encounter for screening mammogram for malignant neoplasm of breast (principal); R92.323 Mammographic fibroglandular density, bilateral breasts; Z78.0 Asymptomatic menopausal state; Z80.3 Family history of malignant neoplasm of breast; Z92.0 Personal history of contraception
CPT/HCPCS: 77063; 77067

== ENCOUNTER → 2024-11-01 | Outpatient (CLI) | payer MEDICARE, OTHER ==
--- NOTE | 2024-11-01 15:04 | BD ---
EXAMINATION TYPE: Axial Bone Density DATE OF EXAM: 11/01/2024 CLINICAL HISTORY: 79 years old Female. ICD-10 CODE: M85.851 OSTEOPENIA , Additional History: Height: 58 Weight: 175 FRAX RISK QUESTIONS: Alcohol (3 or more units per day): yes Family History (Parent hip fracture): no Glucocorticoids (More than 3mos): no (Ex: prednisone, prednisolone, methylprednisolone, dexamethasone, and hydrocortisone). History of Fracture in Adulthood: no Secondary Osteoporosis: 1. Type 1 Diabetes: no 2. Hyperthyroidism: no 3. Menopause before 45: no 4. Malnutrition: no 5. Chronic liver disease: no Rheumatoid Arthritis: no Current Tobacco Use: no RISK FACTORS HISTORY OF: Hip Fracture (Right/Left): no Spine Fracture: no History of Wrist Fracture: no Surgery to Spine/Hip(right/left)/Wrist (right/left): Fusion with hardware in LS-Spine When: about 2019 MEDICATIONS: Thyroid Medications: Levothyroxine Osteoporosis Medications: no EXAM MEASUREMENTS: Bone mineral density about the R hip (g/cm2): 0.859 Bone mineral density about the L hip (g/cm2): 0.855 T Score values are as follows: -----R Neck: -1.4 -----L Neck: -1.6 -----R Total: -1.2 -----L Total: -1.2 Z Score values are as follows: -----R Neck: 0.4 -----L Neck: 0.1 -----R Total: 0.4 -----L Total: 0.4 Bone mineral density has: decreased -4.4 since the study of 08/20/2020 Bone mineral density about the L Wrist (g/cm2): 0.458 T Score values are as follows: -----Dist. R+U: -2.9 -----Prox. R+U: -3.1 -----Radius total: -3.6 Z Score values are as follows: -----Dist. R+U: -0.3 -----Prox. R+U: -0.6 -----Radius total: -1.0 Bone mineral density has: decreased 10.8% since the study of 08/20/2020 FRAX%s: The graph provided illustrates a 15.1hance for a major osteoporotic fx and a 4.3% chance for the hips probability for fx in 10 years time. IMPRESSION: Osteoporosis (T Score less than -2.5). There is increased fracture risk and therapy is usually indicated based on age. Re-Screen 1-2 years. NOTE: T-SCORE=SD OF THE YOUNG ADULT MEAN. [facility], , 11/01/2024 3:02 PM
== END | disposition home or self-care (01) ==
LOC: RADBDWWP 13:42
PROVIDERS: ATTEND Internal Medicine
DX: M81.0 Age-related osteoporosis without current pathological fracture (principal); M85.89 Other specified disorders of bone density and structure, multiple sites
CPT/HCPCS: 77080

== ENCOUNTER → 2024-11-25 | Outpatient (CLI) | payer MEDICARE, OTHER ==
--- NOTE | 2024-11-25 13:30 | MR ---
EXAMINATION TYPE: MR brain wo con DATE OF EXAM: 11/25/2024 12:31 PM COMPARISON: None. CLINICAL INDICATION: Female, 79 years old with history of G30.9 Alzheimers, Alzheimers; clinical kiesha toring during infusion therapy. TECHNIQUE: Multiplanar, multiecho imaging on a 3.0 Silvia magnet is performed through the brain. Stud y is performed within 24 hours of arrival to the hospital.Multiplanar, multiecho imaging on a 3.0 Minerva la magnet is performed through the knee. IV Contrast: mL (None, if empty) FINDINGS: The craniovertebral junction is normal. The pituitary is normal. Diffusion-weighted imaging is performed. No abnormal hyperintensity is present to suggest an acute i ntracranial infarct or acute ischemic change. There are scattered punctate areas of hyperintensity on T2 and Inversion Recovery weighted sequences which are non-specific but can be related to microvascular ischemic changes. There is some increasing white matter change to the bilateral henley radiata. These punctate areas are better visualized than previous Ventricles and sulci are appropriate for the patient age. IMPRESSION: 1. There may be some minimal increasing punctate white matter changes within the bilateral henley rad iata. 2. Centrum semiovale deep white matter changes appear similar to comparison. [facility], Workstation: [id number], 11/25/2024 1:28 PM
== END | disposition home or self-care (01) ==
LOC: RADMRIMAIN 11:30
PROVIDERS: ATTEND Psychiatry & Neurology Neurology
DX: G30.9 Alzheimer's disease, unspecified (principal); R90.82 White matter disease, unspecified
CPT/HCPCS: 70551

== ENCOUNTER 2024-12-15 10:04 | Day surgery (SDC) | payer MEDICARE, OTHER ==
[2024-12-13 08:51] VITALS: BMI 38.1
[~2024-12-15 10:04] MED LIST changes: +ALPRAZolam 0.25 MG TAB PO PRN; +ALPRAZolam 0.5 MG TAB PO PRN; +HEPARIN SODIUM,PORCINE (1 ML) 2,500 UNIT in SODIUM CHLORIDE 0.9% 250 ML IRRIGATION PRN; +HEPARIN SODIUM,PORCINE 10,000 UNIT in SODIUM CHLORIDE 0.9% 1,000 ML IRRIGATION PRN; -LACTATED RINGERS 1,000 ML IV SCH; +NITROGLYCERIN SL TABS 0.4 MG TAB SUBLINGUAL PRN
[2024-12-15] MEDS: IV FLUID CONTINUATION 1,000 ML IV ONE (10:44)
[2024-12-15] MEDS: ASPIRIN 325 MG TAB PO STA (11:04)
[2024-12-15] MEDS: SODIUM CHLORIDE 0.9% 1,000 ML in EMPTY BAG 1 BAG IV SCH (11:06)
[2024-12-15 11:17] VITALS: RESP 16; TEMP 97.9
[2024-12-15 11:21] LABS: Basophils # (A) 0.06 10*3/uL (0.00-0.10); Eosinophils # (A) 0.29 10*3/uL (0.04-0.35); Eosinophils % (A) 4.6 %; HCT 37.7 % (37.2-46.3); HGB 12.7 g/dL (12.0-15.0); Lymphocytes # (A) 1.29 10*3/uL (0.90-5.00); Lymphocytes % (A) 20.6 %; MCH 31.4 pg (27.0-32.0); MCHC 33.7 g/dL (32.0-37.0); MCV 93.3 fL (80.0-97.0); Mean Platelet Volume 9.6 fL (9.5-12.2); Neutrophils # (A) 4.08 10*3/uL (1.80-7.70); Neutrophils % (A) 65.2 %; Platelet Count 216 10*3/uL (140-440); RBC 4.04 10*6/uL (4.10-5.20); RDW 12.9 % (11.5-14.5); WBC 6.26 10*3/uL (4.50-10.00)
[2024-12-15] MEDS: MIDAZOLAM 2 MG/2 ML VIAL IVP ONE (11:32)
[2024-12-15 11:34] LABS: African American GFR (CKD) >90 (>60 ml/min/1.73 sqM); Anion Gap 8 mmol/L; Blood Urea Nitrogen 14 mg/dL (7-17); Calcium 9.4 mg/dL (8.4-10.2); Carbon Dioxide 27 mmol/L (22-30); Chloride 105 mmol/L (98-107); Glucose 88 mg/dL (74-99); Non-African American GFR(CKD) >90 (>60 ml/min/1.73 sqM); Sodium 140 mmol/L (137-145)
[2024-12-15] MEDS: LIDOCAINE 1% INJ 10MG/ML (30 ML VIAL-PF) SQ ONE (11:40)
[2024-12-15] MEDS: HEPARIN SODIUM 1,000 UN/ML (10ML VL) IVP ONE (11:40)
[2024-12-15] MEDS: fentaNYL (PF) 50 MCG/1 ML VIAL IVP ONE ×2 (11:40)
[2024-12-15] MEDS: IOPAMIDOL-370 100ML BTL INJ ONE (12:00)
[2024-12-15] MEDS ORDERED: RX INFO: IV CONTRAST WAS GIVEN 1 EACH MISC MISCELLANE PRN (12:03)
--- NOTE | 2024-12-15 12:05 | P.PCN ---
Date of Procedure: 12/15/24 Operative Findings: CARDIAC CATHETERIZATION PERFORMING PHYSICIAN: Keenan Og MD, RPVI PROCEDURE PERFORMED: 1. Selective right and left coronary angiogram 2. Left heart catheterization 3. Ultrasound-guided access of the right radial artery INDICATION: Abnormal myocardial perfusion imaging stress is in the 79-year-old female patient who was symptomatic COMPLICATION: None APPROACH: Right radial artery LEVEL OF SEDATION: Moderate with a sedation length of 23 minutes PROCEDURE DESCRIPTION: After obtaining an informed consent, the patient was brought to cardiac clinical laboratory assistant. Local anesthesia was performed using lidocaine subcutaneously. The right radial artery was cannulated using Seldinger technique, under ultrasound guidance, the guidewire passed easily, following that we advanced a 5-Panamanian sheath dilator assembly, the wire and dilator were removed and sheath was flushed. Following that, 2 mg of verapamil along with 5000 unit heparin were given. Selective right and left coronary angiogram using a 5-Panamanian JR4 and JL 3.5 catheters. Following that we did left heart catheterization using 5-Panamanian pigtail catheter. The procedure was completed there was no complication. SELECTIVE CORONARY ANGIOGRAM: The right coronary artery: Large caliber vessel and a dominant vessel with no evidence of high-grade stenosis Left main: Is angiographically is normal The left circumflex: Large caliber vessel nondominant vessel with no evidence of high-grade stenosis The left anterior descending artery: Large caliber vessel with no evidence of high-grade stenosis as we HEMODYNAMICS: The LVEDP was 12 mmHg with no significant. Across aortic valve CONCLUSION: 1. Normal coronary angiogram 2. Normal left-sided filling pressure POSTPROCEDURE MANAGEMENT: Medical treatment
[2024-12-15] MEDS: SODIUM CHLORIDE 0.9% 1,000 ML IV SCH (12:15)
[2024-12-15] MEDS: ACETAMINOPHEN TAB 325 MG TAB PO STA (15:43)
[2024-12-15 17:46] VITALS: BP 133/60; PULSE 83
== END 2024-12-15 16:59 | disposition home or self-care (01) ==
LOC: CATHCVL 10:04
PROVIDERS: ATTEND Internal Medicine Interventional Cardiology
DX: R94.39 Abnormal result of other cardiovascular function study (principal); R94.31 Abnormal electrocardiogram [ECG] [EKG]; K21.9 Gastro-esophageal reflux disease without esophagitis; I08.3 Combined rheumatic disorders of mitral, aortic and tricuspid valves; I77.810 Thoracic aortic ectasia; Z79.890 Hormone replacement therapy; Z79.899 Other long term (current) drug therapy; Z87.891 Personal history of nicotine dependence
CPT/HCPCS: 93458; 80048; 85025; C1894 ×2; C1769 ×2; J2250; J2003; J1644; Q9967; J3010

== ENCOUNTER → 2024-12-19 | Outpatient (CLI) | payer MEDICARE, OTHER ==
[2024-12-19 16:54] LABS: Basophils # (A) 0.05 X 10*3/uL (0.00-0.10); Basophils % (A) 0.8 %; Eosinophils # (A) 0.24 X 10*3/uL (0.04-0.35); Eosinophils % (A) 3.9 %; HCT 41.3 % (37.2-46.3); HGB 13.2 g/dL (12.0-15.0); Lymphocytes # (A) 1.32 X 10*3/uL (0.90-5.00); Lymphocytes % (A) 21.4 %; MCH 30.6 pg (27.0-32.0); MCV 95.8 FL (80.0-97.0); Mean Platelet Volume 9.8 FL (9.5-12.2); Monocytes # (A) 0.52 X 10*3/uL (0.20-1.00); Monocytes % (A) 8.4 %; NRBC Per 100 WBC 0 X 10*3/uL (0.00-0.01); Neutrophils # (A) 4.01 X 10*3/uL (1.80-7.70); Platelet Count 269 X 10*3/uL (140-440); RBC 4.31 X 10*6/uL (4.10-5.20); RDW 12.7 % (11.5-14.5); WBC 6.17 X 10*3/uL (4.50-10.00)
[2024-12-19 17:20] LABS: ALT 20 U/L (8-44); AST 21 U/L (13-35); Albumin 4.5 g/dL (3.8-4.9); Albumin/Globulin Ratio 1.88 Ratio (1.60-3.17); Alkaline Phosphatase 119 U/L (41-126); Blood Urea Nitrogen 12.7 mg/dL (9.0-27.0); Calcium 9.7 mg/dL (8.7-10.3); Carbon Dioxide 26.3 mmol/L (21.6-31.8); Chloride 104 mmol/L (96-109); Globulin 2.4 g/dL (1.6-3.3); Glucose 91 mg/dL (70-110); Potassium 4.5 mmol/L (3.5-5.5); Sodium 142 mmol/L (135-145); Total Bilirubin 0.3 mg/dL (0.3-1.2); Total Protein 6.9 g/dL (6.2-8.2)
== END | disposition home or self-care (01) ==
LOC: LABPAT 12:34
PROVIDERS: ATTEND Specialist
DX: Z01.812 Encounter for preprocedural laboratory examination (principal)
CPT/HCPCS: 80053; 85025

== ENCOUNTER 2025-01-09 09:33 | Emergency (ER) | payer MEDICARE, OTHER ==
--- NOTE | 2025-01-09 09:52 | ED ---
General Adult HPI - General Chief complaint: Back Pain/Injury Stated complaint: Back pain Time Seen by Provider: 01/09/25 09:34 Source: EMS Mode of arrival: EMS Limitations: no limitations - History of Present Illness Initial comments: Dictation was produced using [employer] dictation software. please excuse any grammatical, word or spelling errors. Chief Complaint: 79-year-old female chronic back pain presents to the emergency department for atraumatic back pain History of Present Illness: Patient 71-year-old female with history of chronic back pain and back surgery presents to the ER for right mid back pain. States that she has been gardening. The following day she started having pain to her right mid back. Patient states yesterday it was to her left mid back. Denies any numbness ting paresthesias. States that hurts when she stands or twists. Denies any fall. No lower extremity symptoms. No saddle anesthesia or loss of bowel bladder control The ROS documented in this emergency department record has been reviewed and confirmed by me. Those systems with pertinent positive or negative responses have been documented in the HPI. All other systems are other negative and/or noncontributory. - Related Data Home Medications Medication Instructions Recorded Confirmed Omeprazole [PriLOSEC] 20 mg PO BID 10/16/15 12/15/24 L.acidoph,Paracasei, B.lactis 1 cap PO DAILY 07/10/22 12/15/24 [Probiotic] Pramipexole [Mirapex] 0.25 mg PO HS 07/10/22 12/15/24 Oxybutynin Chloride [oxyBUTYnin 15 mg PO QAM 03/24/23 12/15/24 chloride ER] Active Mind 1 tab PO DAILY 05/13/24 12/15/24 Ascorbic Acid/Collagen Hydr 1 cap PO HS 05/13/24 12/15/24 [Collagen Plus Vit C Capsule] Ergocalciferol [Vitamin D2 (1250 1,250 mcg PO SARGENT 05/13/24 12/15/24 Mcg = [id number] Iu)] Gabapentin 300 mg PO BID 05/13/24 12/15/24 Glucosamine/Chondr Sargent A Sod [Osteo 1 tab PO DAILY 05/13/24 12/15/24 Bi-Flex Caplet] Levothyroxine Sodium [Synthroid] 150 mcg PO HS 05/13/24 12/15/24 Multivitamins, Thera [Multivitamin 1 tab PO DAILY 05/13/24 12/15/24 (formulary)] Famotidine 20 mg PO BID 12/13/24 12/15/24 Ginkgo Biloba Dougherty Extract [Ginkgo 125 mg PO DAILY 12/13/24 12/15/24 Biloba] Potassium Gluconate 99 mg PO DAILY 12/13/24 12/13/24 Metoprolol Succinate [Metoprolol 12.5 mg PO BID 12/15/24 12/15/24 Succinate ER] Allergies Allergy/AdvReac Type Severity Reaction Status Date / Time STERI STRIPS Allergy RED, ITCHY Uncoded 01/09/25 09:39 Review of Systems ROS Statement: Those systems with pertinent positive or pertinent negative responses have been documented in the HPI. ROS Other: All systems not noted in ROS Statement are negative. Past Medical History Past Medical History: Chest Pain / Angina, GERD/Reflux, Osteoarthritis (OA), Skin Disorder, Thyroid Disorder Additional Past Medical History / Comment(s): DEVELOPED ILEUS AFTER BACK SURGERY. TINNITUS. , RESTLESS LEG SYNDROME, OAB., BRUISES EASILY., SEE DR. RIVERA'S H & P History of Any Multi-Drug Resistant Organisms: MRSA Date of last positivie culture/infection: 01/30/13 MDRO Source:: Back Past Surgical History: Back Surgery, Cholecystectomy, Hernia Repair, Hysterectomy, Joint Replacement, Orthopedic Surgery Additional Past Surgical History / Comment(s): Right knee replacement X2, Torn rotator cuff (2 on right & once on left), CTR aden, trigger finger aden, toe surgery-little toe, left heel surgery. , BACK SURGERY SURGERY WITH DENIA, TOTAL RIGHT SHOULDER , BLEPHOPLASTY, HIATAL HERNIA REPAIR January AT [facility]. COLONOSCOPY Past Anesthesia/Blood Transfusion Reactions: No Reported Reaction Additional Past Anesthesia/Blood Transfusion Reaction / Comment(s): (DEVELOPED ILEUS AFTER BACK SURGERY) Past Psychological History: Anxiety, Depression Smoking Status: Former smoker Past Alcohol Use History: Daily Past Drug Use History: None Reported - Past Family History Mother Family Medical History: Cancer Additional Family Medical History / Comment(s): CA: breast, lung Father Family Medical History: AFIB Additional Family Medical History / Comment(s): parkinsons Sister(s) Family Medical History: CVA/TIA General Exam - General Exam Comments Initial Comments: PHYSICAL EXAM: General Impression: Alert and oriented x3, not in acute distress HEENT: Normocephalic atraumatic, extra-ocular movements intact, pupils equal and reactive to light bilaterally, mucous membranes moist. Cardiovascular: Heart regular rate and rhythm Chest: Able to complete full sentences, no retractions, no tachypnea Abdomen: abdomen soft, non-tender, non-distended, no organomegaly Musculoskeletal: Pulses present and equal in all extremities, no peripheral edema Motor: no focal deficits noted Neurological: CN II-XII grossly intact, no focal motor or sensory deficits noted Skin: Intact with no visualized rashes Psych: Normal affect and mood Limitations: no limitations Course Vital Signs 01/09/25 01/09/25 09:34 11:40 Temperature 98.9 F Pulse Rate 95 76 Respiratory 20 20 Rate Blood Pressure 122/77 104/58 O2 Sat by Pulse 96 99 Oximetry Medical Decision Making - Medical Decision Making Was pt. sent in by a medical professional or institution (, PA, PROPULSION ENGINEER, urgent care, hospital, or long-term...) When possible be specific @ -No Did you speak to anyone other than the patient for history (EMS, parent, family, police, friend...)? What history was obtained from this source @ -No Did you review nursing and triage notes (agree or disagree)? Why? @ -I reviewed and agree with nursing and triage notes Were old charts reviewed (outside hosp., previous admission, EMS record, old EKG, old radiological studies, urgent care reports/EKG's, long-term records)? Report findings @ -No old charts were reviewed Differential Diagnosis (chest pain, altered mental status, abdominal pain women, abdominal pain men, vaginal bleeding, musculoskeletal, weakness, fever, dyspnea, syncope, headache, dizziness, GI bleed, back pain, seizure, CVA, palpatations, mental health)? @ -Differential Back Pain: Strain, zoster, cauda equina syndrome, epidural abscess, vertebral osteomyelitis, discitis, fracture, subluxation, disc herniation, DJD, spinal stenosis, dissection, AAA, pancreatitis, peptic ulcer disease, pyelonephritis, kidney stone, this is not meant to be an all-inclusive list. EKG interpreted by me (3pts min.). @ -None done X-rays interpreted by me (1pt min.). @ -Thoracic and lumbar x-ray shows no acute processes CT interpreted by me (1pt min.). @ -None done U/S interpreted by me (1pt. min.). @ -None done What testing was considered but not performed or refused? (CT, X-rays, U/S, labs)? Why? @ -None What meds were considered but not given or refused? Why? @ -None Was smoking cessation discussed for >3mins.? @ -No Were there social determinants of health that impacted care today? How? (Homelessness, low income, unemployed, alcoholism, drug addiction, transpo rtation, low edu. Level, literacy, decrease access to med. care, m[facility], rehab)? @ -No Was there de-escalation of care discussed even if they declined (Discuss DNR or withdrawal of care, Hospice)? DNR status @ -No What co-morbidities impacted this encounter? (DM, HTN, Smoking, COPD, CAD, Cancer, CVA, ARF, Chemo, Hep., AIDS, mental health diagnosis, sleep apnea, morbid obesity)? @ -None Was patient admitted / discharged? Hospital course, mention meds given and route, prescriptions, significant lab abnormalities, going to OR and other pertinent info. @ -79 yo Female with atraumatic back pain. Vital signs stable. Patient has no high risk features. X-rays are nonacute. Patient given analgesic medications improvement of symptoms. Patient discharged Did you discuss the management of the patient with other professionals (professionals i.e. , PA, PROPULSION ENGINEER, lab, RT, psych nurse, marriage and family social worker, stove cleaner, teacher, police officer booking, case packer)? Give summary @ -No Was critical care preformed (if so, how long)? @ -No Undiagnosed new problem with uncertain prognosis? @ -No Drug Therapy requiring intensive monitoring for toxicity (Heparin, Nitro, Insulin, Cardizem)? @ -No Were any procedures done? @ -No Diagnosis/symptom? Acute, or Chronic, or Acute on Chronic? Uncomplicated (without systemic symptoms) or Complicated (systemic symptoms)? @ -Back strain Side effects of treatment? @ -No Exacerbation, Progression, or Severe Exacerbation? @ -No Poses a threat to life or bodily function? How? (Chest pain, [place], [place], pneumonia, PE, COPD, DKA, ARF, appy, cholecystitis, CVA, Diverticulitis, Homicidal, Suicidal, threat to staff... and all critical care pts) @ -No Disposition Clinical Impression: Back strain Disposition: HOME SELF-CARE Condition: Good Instructions (If sedation given, give patient instructions): Acute Low Back Pain (ED) Is patient prescribed a controlled substance at d/c from ED?: No Referrals: Romeo Lopez MD [Primary Care Provider] - 1-2 days Time of Disposition: 12:27
[2025-01-09] MEDS: KETOROLAC 15 MG/ML 1 ML VIAL IM STA (09:55)
[2025-01-09] MEDS: MORPHINE SULFATE 4 MG/ML SYRINGE IM STA (09:55)
[2025-01-09] MEDS: LIDOCAINE 4% PATCH TOPICAL ONE (09:56)
--- NOTE | 2025-01-09 10:27 | XR ---
EXAMINATION TYPE: XR lumbar spine 2 or 3V DATE OF EXAM: 01/09/2025 10:18 AM COMPARISON: 01/01/2018 CLINICAL INDICATION: Female, 79 years old with history of atraumatic right pain, pain TECHNIQUE: 3 view(s) obtained. FINDINGS: Pedicle screws and fixation rods are present through the lumbar spine. There is narrowing of disc hei ght T12-L1 L1-2. Milder degenerative disc changes present at L2-3. There is loss of disc height L5-S1 . Minimal retrolisthesis of L2 on L3 may be present present previously. The prior grade 1 spondylolis thesis at L4-5 and L5-S1 are not appreciated on the current imaging. IMPRESSION: 1. Degenerative disc changes. 2. Prior spondylolisthesis is not appreciated may be related to positioning on the current exambernarda krause [facility], , 01/09/2025 10:25 AM
--- NOTE | 2025-01-09 10:29 | XR ---
EXAMINATION TYPE: XR thoracic spine 2V DATE OF EXAM: 01/09/2025 10:18 AM COMPARISON: 10/21/2017 CLINICAL INDICATION: Female, 79 years old with history of atraumatic right pain, pain TECHNIQUE: 3 view(s) obtained. FINDINGS: Pedicle screws are present at T12. Remaining pedicles as visualized appear intact. There is some dege nerative disc change present throughout the thoracic spine greater in the lower thoracic spine. Some narrowing of the upper and mid thoracic spine disc levels however is present. There is some increased kyphosis in the lower thoracic spine, present previously IMPRESSION: 1. Degenerative disc changes. 2. Kyphosis of the lower thoracic spine present previously. [facility], , 01/09/2025 10:27 AM
[2025-01-09 12:54] VITALS: BP 111/54; PULSE 68; RESP 16; TEMP 97.8
== END 2025-01-09 12:58 | disposition home or self-care (01) ==
LOC: EC 09:33
DX: S39.012A Strain of muscle, fascia and tendon of lower back, initial encounter (principal); Z87.891 Personal history of nicotine dependence; Z91.048 Other nonmedicinal substance allergy status; X58.XXXA Exposure to other specified factors, initial encounter
CPT/HCPCS: 72070; 72100; 99284; 96372 ×2; J2270; J1885

== ENCOUNTER → 2025-01-17 | Outpatient (CLI) | payer MEDICARE, OTHER ==
--- NOTE | 2025-01-18 13:50 | NM ---
EXAMINATION TYPE: NM bone scan whole body DATE OF EXAM: 01/17/2025 COMPARISON: 01/09/2025 Thoracic spine HISTORY: Pain in thoracic spine Delayed whole-body scanning was performed following the injection of 22.4 mCi Tc 99m MDP. Images wer e acquired 3 hours post injection. FINDINGS: There is increased uptake within the lower thoracic spine in the region of T10. Acute compression def ormities be considered. There is some additional foci of uptake including the proximal left humerus, the region of the glenoi d or coracoid on the left. Scattered uptake within the anterior ribs is present in the region of the right second and fourth and left fifth ribs. There is a focus of radiotracer within the anterior third rib region but not at the and. This area raises the possibility of metastasis. The additional rib uptake could be related to p osttraumatic change. Note is made of a posterior left 11th rib region focus of uptake. Uptake within the mid feet bilaterally and at the right first metatarsophalangeal joint region more l ikely related to degenerative change. IMPRESSION: 1. Uptake within the region of T10 can be an acute fracture. 2. Scattered foci within the ribs more likely posttraumatic in nature. 3. Abnormal uptake in the region of the left shoulder including the proximal humerus and the scapula as well as uptake in the acromioclavicular junction. Plain film correlation recommended. 4. Additional areas of uptake likely degenerative in nature [facility], , 01/18/2025 1:47 PM
== END | disposition home or self-care (01) ==
LOC: RADNMMAIN 11:01
PROVIDERS: ATTEND Physical Medicine & Rehabilitation
DX: R93.7 Abnormal findings on diagnostic imaging of other parts of musculoskeletal system (principal)
CPT/HCPCS: 78306; A9503

== ENCOUNTER → 2025-01-28 | Outpatient (CLI) | payer MEDICARE, OTHER ==
--- NOTE | 2025-01-28 14:21 | MR ---
EXAMINATION TYPE: MR angio head wo/neck wo/w con DATE OF EXAM: 01/28/2025 11:50 AM COMPARISON: MRI same day.. CLINICAL INDICATION: Female, 79 years old with history of CVA; PHH, Abnormal MRI brain, CVA, early al zheimers. Technical: MRA brain: 2D and 3-D [id number] Axial with MIP and 3-D reconstruction. Performed on a separate w orkstation. MRA neck: Multiplanar, multi-sequence imaging as well as [id number] and phase was performed extra cranial vasculature of the neck. 3-D reformatted images and maximum intensity projection reformatted images were submitted for evaluation, these are performed on a separate workstation. IV Contrast: 8 cc Gadobutrol Findings: Vertebral arteries: The vertebral arteries are patent. Vertebral arteries are: Codominant. Basilar artery: The basilar artery is intact. The basilar artery bifurcation is normal. Internal Carotid arteries: The cervical, petrous, cavernous and supraclinoid segments are normal. BISH[facility]: 2 mm saccular aneurysm at the origin of the right BISHOP and right ACOM. No evidence for aneurysm o n the left. Series 301 image 93. ACOM: Present without evidence of aneurysm. MCA: Patent with no evidence of aneurysm. NAVIGATION OFFICER: origin bilateral posterior cerebral arteries. Patent with no evidence of aneurysm. PCOM: origin bilaterally.. RIGHT CAROTID SYSTEM: The common carotid artery is patent. The carotid bifurcations demonstrates no e vidence for hemodynamically significant stenosis. The internal carotid artery is patent. LEFT CAROTID SYSTEM: The common carotid artery is patent. The carotid bifurcations demonstrates no e vidence for hemodynamically significant stenosis. The internal carotid artery is patent. The origins of the great vessels and vertebral arteries appear unremarkable. The right vertebral art tuan is dominant. IMPRESSION: 1. 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 No evidence of intracranial high-grade stenosis. 3. No evidence of significant stenosis at the carotid bifurcations. The carotid and vertebral arteri es are patent. [facility], , 01/28/2025 2:19 PM
== END | disposition home or self-care (01) ==
LOC: RADMRIMAIN 10:42
PROVIDERS: ATTEND Psychiatry & Neurology Neurology
DX: I63.9 Cerebral infarction, unspecified (principal); G30.9 Alzheimer's disease, unspecified; F02.80 Dementia in other diseases classified elsewhere, unspecified severity, without behavioral disturbance, psychotic disturbance, mood disturbance, and anxiety; I65.21 Occlusion and stenosis of right carotid artery; Z86.73 Personal history of transient ischemic attack (TIA), and cerebral infarction without residual deficits
CPT/HCPCS: 70544; 70549; A9585

== ENCOUNTER → 2025-02-01 | Outpatient (CLI) | payer MEDICARE, OTHER ==
[2025-02-01 16:17] LABS: Basophils # (A) 0.05 10*3/uL (0.00-0.10); Basophils % (A) 0.8 %; Eosinophils # (A) 0.24 10*3/uL (0.04-0.35); Eosinophils % (A) 3.8 %; HCT 39.5 % (37.2-46.3); HGB 12.8 g/dL (12.0-15.0); Lymphocytes # (A) 1.66 10*3/uL (0.90-5.00); Lymphocytes % (A) 26.4 %; MCH 30.7 pg (27.0-32.0); MCHC 32.4 g/dL (32.0-37.0); MCV 94.7 fL (80.0-97.0); Monocytes # (A) 0.56 10*3/uL (0.20-1.00); Monocytes % (A) 8.9 %; Neutrophils # (A) 3.74 10*3/uL (1.80-7.70); Neutrophils % (A) 59.6 %; Platelet Count 306 10*3/uL (140-440); RBC 4.17 10*6/uL (4.10-5.20); RDW 12.2 % (11.5-14.5); WBC 6.28 10*3/uL (4.50-10.00)
[2025-02-01 16:31] LABS: Bilirubin,Urine 1+ (Negative); Blood,Urine Negative (Negative); Color,Urine Yellow; Glucose,Urine (UA) Negative (Negative); Ketones,Urine Negative (Negative); Leukocyte Esterase,Urine Moderate (Negative); Mucus,Urine Many /hpf; Nitrite,Urine Negative (Negative); PH, Urine 5.5 (5.0-8.0); Protein,Urine Trace (Negative); RBC,Urine 5 /hpf (0-5); Specific Gravity,Urine 1.029 (1.001-1.035); Squamous Epithelial Cell,Urine 4 /hpf (0-4); Urobilinogen,Urine 2.0 mg/dL (<2.0); WBC,Urine 6 /hpf (0-5)
[2025-02-01 16:34] LABS: ALT 15 U/L (4-34); AST 21 U/L (14-36); African American GFR (CKD) >90 (>60 ml/min/1.73 sqM); Albumin 4.5 g/dL (3.5-5.0); Albumin/Globulin Ratio 1.7; Alkaline Phosphatase 141 U/L (38-126); Anion Gap 11 mmol/L; Blood Urea Nitrogen 12 mg/dL (7-17); Calcium 9.8 mg/dL (8.4-10.2); Carbon Dioxide 27 mmol/L (22-30); Chloride 102 mmol/L (98-107); Creatine Kinase 51 U/L (30-135); Globulin 2.7 g/dL; Glucose 90 mg/dL (74-99); Non-African American GFR(CKD) 88 (>60 ml/min/1.73 sqM); Potassium 4.3 mmol/L (3.5-5.1); Sodium 140 mmol/L (137-145); Total Protein 7.2 g/dL (6.3-8.2); Uric Acid 4.0 mg/dL (3.7-7.4)
[2025-02-01 17:44] LABS: T4, Free (Free Thyroxine) 1.90 ng/dL (0.78-2.19)
[2025-02-01 18:58] LABS: Carcinoembryonic Antigen <2.0 ng/mL (0.0-4.9)
--- NOTE | 2025-02-01 21:59 | CT ---
EXAMINATION TYPE: CT ChestAbdPelvis w con CT DLP: 1425 mGycm, Automated exposure control for dose reduction was used. DATE OF EXAM: 02/01/2025 5:28 PM COMPARISON: Nuclear medicine bone scan 01/17/2025, CT abdomen and pelvis 02/20/2021 CLINICAL INDICATION:Female, 79 years old with history of C80.1 MALIG NEOPL, UNSPEC; PHH, unspecified malignant neoplasm Technique: Multiple axial images of the chest, abdomen, and pelvis were obtained following the intrav enous administration of 100 mL Isovue-300. Oral contrast was administered. Two-dimensional coronal an d sagittal reconstructions were obtained. Findings: CHEST: LUNGS/ PLEURA: No pleural effusion, pneumothorax, focal consolidation. Couple of posterior right uppe r lung calcified granulomas. No clinically significant pulmonary nodule identified. AIRWAY: Patent and unremarkable.. HEART: Size within normal limits. . No pericardial effusion. No significant coronary artery calcifica tions. MEDIASTINUM: No gross evidence of adenopathy. VASCULATURE: No aortic aneurysm. Four-vessel aortic arch. Mild atherosclerotic calcification of the aorta and its branches. MUSCULOSKELETAL: No acute osseous abnormalities. Postsurgical changes from bilateral shoulder arthrop lasty. Multilevel degenerative disc disease of the lower thoracic spine. Grade 1 anterolisthesis of T 9 on T10. No aggressive osseous lesion identified. SOFT TISSUES/LYMPH NODES: Unremarkable. LOWER NECK: No significant findings. ABDOMEN: ABDOMEN LIVER: Stable anterior left hepatic lobe 1.1 cm cyst. No new concerning hepatic lesions. GALLBLADDER AND BILE DUCTS: Postsurgical changes from cholecystectomy with mild intra and extrahepati c biliary duct dilatation likely related to cholecystectomy physiology. PANCREAS: Unremarkable. SPLEEN: Unremarkable. ADRENAL GLANDS: Unremarkable. KIDNEYS AND URETERS: No evidence of hydronephrosis. No left renal calculi. Nonobstructing right renal lower pole 2 mm calculus. The kidneys enhance symmetrically. Contrast is demonstrated within both co llecting systems on the delayed phase. PELVIS BLADDER: Under distended, limiting evaluation. REPRODUCTIVE: The uterus is surgically absent. ABDOMEN & PELVIS STOMACH AND BOWEL: Suggested postsurgical changes from Willis fundoplication. No evidence of bowel ob struction. Bilateral inguinal hernias containing nonobstructing small bowel and fat. No inflammatory changes. Enteric contrast reaches the descending colon. Distal colonic diverticulosis without evidenc e for acute diverticulitis. PERITONEUM: No evidence of pneumoperitoneum or free fluid. VASCULATURE: Mild atherosclerotic calcifications are present throughout the abdominal aorta and its b ranches. No abdominal aortic aneurysm. Pelvic phleboliths. MUSCULOSKELETAL: No acute osseous abnormalities. Degenerative changes of the pubic symphysis. Postsur gical changes with bilateral pedicular screws and rods and laminectomy changes involving T12-S1. Incr eased kyphosis at the thoracolumbar junction. Fixed grade 1 anterolisthesis of L4 on L5 and L5 on S1. Grade 1 retrolisthesis of L2 on L3 and L1 on L2. No aggressive osseous lesion. LYMPH NODES: No evidence for lymphadenopathy. SOFT TISSUE/ABDOMINAL WALL: Bilateral inguinal hernias containing nonobstructing small bowel and fat. No inflammatory changes. Small fat filled umbilical hernia. IMPRESSION: 1. No CT evidence for malignancy or metastatic disease. No lymphadenopathy. 2. Bilateral hernias containing nonobstructing small bowel and fat. Additional small fat filled umbil ical hernia. 3. Colonic diverticulosis without evidence for acute diverticulitis. 4. Nonobstructing right renal calculus. [facility], , 02/01/2025 9:57 PM
[2025-02-02 02:42] LABS: Cholesterol 187.00 mg/dL (0.00-200.00); HDL Cholesterol 71.20 mg/dL (40.00-60.00); LDL Cholesterol,Calculated 94.8 mg/dL (0.0-131.0); Triglycerides 105.00 mg/dL (0.00-149.00); VLDL Calculation 21.00 mg/dL (5.00-40.00)
== END | disposition home or self-care (01) ==
LOC: RADCTMAIN 14:53
PROVIDERS: ATTEND Internal Medicine
DX: C80.1 Malignant (primary) neoplasm, unspecified (principal); N20.0 Calculus of kidney; K57.30 Diverticulosis of large intestine without perforation or abscess without bleeding; K42.9 Umbilical hernia without obstruction or gangrene
CPT/HCPCS: 71260; 74177; 80053; 80061; 81001; 82306; 82378; 82550; 83036; 83970; 84439; 84443; 84550; 85025; 85652; 86140; 86301; 86304